=== PATIENT | female | born 1975 | race Caucasian/White ===

== ENCOUNTER 2023-07-16 11:33 | Outpatient (OUT) | payer OTHER, SELFPAY ==
--- NOTE | 2023-07-16 11:43 | MM_ITS ---
Patient Name: THADDEUS CRONIN MR#: [id number] : 1975 Exam Date: 07/16/2023 Ordering Doctor: DR Deepak Alaniz . CORRECTION Corrected on: 07/16/2023; RADIOLOGY REPORT PROCEDURE: MM DIAGNOSTIC MAMMO BI US BREAST LEFT COMPARISON: US BREAST LT LIMITED, 07/16/2023. MM TOMOSYNTHESIS SCREENING BI, 05/16/2022. MM TOMOSYNTHESIS SCREENING BI, 04/17/2023. INDICATIONS: mass of left breast N63.20 Calculator Name NCI Breast Cancer Risk Assessment Tool 5 Year Breast Cancer Risk 1.70% Lifetime Breast Cancer Risk 12.80% Personal Breast Cancer No Personal Ovarian Cancer No Treatments None Family Cancers Grandmother-maternal with breast cancer at age 52. LOCATION: [facility] BREAST COMPOSITION: Extremely dense, which lowers the sensitivity of mammography. FINDINGS: DIAGNOSTIC CATEGORY 2--BENIGN FINDING. NO CHANGE FROM COMPARISON. Nodular dense parenchymal pattern limiting diagnostic sensitivity.Scattered benign-appearing calcifications are present. Scattered benign-appearing lymph nodes are present. RIGHT BREAST: No significant suspicious finding. LEFT BREAST: Stable 3.7 x 3.2 cm round lesion upper-outer quadrant, mid breast with an adjacent micro clip marker. Ultrasound demonstrates an area of anechoic echogenicity with increased acoustic through transmission measuring 3.4 x 3.0 x 3.7 cm corresponding both in size and location to the mammographic findings and consistent with a simple cyst. If this lesion causes the patient discomfort, fine needle aspiration could be performed RECOMMENDATIONS: ROUTINE MAMMOGRAM AND CLINICAL EVALUATION IN 12 MONTHS. PLEASE NOTE: A NORMAL MAMMOGRAM DOES NOT EXCLUDE THE POSSIBILITY OF BREAST CANCER. A CLINICALLY SUSPICIOUS PALPABLE LUMP SHOULD BE BIOPSIED. Dictated by: Peter Mackay MD on 07/16/2023 at 12:40 Approved by: Peter Mackay MD on 07/16/2023 at 12:45 Dictated by: Peter Mackay MD on 07/16/2023 at 12:47 Approved by: Peter Mackay MD on 07/16/2023 at 12:47
--- NOTE | 2023-07-16 11:55 | US_ITS ---
Patient Name: THADDEUS CRONIN MR#: [id number] : 1975 Exam Date: 07/16/2023 Ordering Doctor: DR JOSE MAZARIEGOS . RADIOLOGY REPORT PROCEDURE: US BREAST LT LIMITED COMPARISON: MM DIAGNOSTIC MAMMO BI, 07/16/2023, MM TOMOSYNTHESIS SCREENING BI, 05/16/2022, MM TOMOSYNTHESIS SCREENING BI, 04/17/2023 INDICATIONS: mass of left breast TECHNIQUE: Breast ultrasound was performed, with evaluation focusing only on specific areas of concern. Calculator Name NCI Breast Cancer Risk Assessment Tool 5 Year Breast Cancer Risk 1.70% Lifetime Breast Cancer Risk 12.80% Personal Breast Cancer No Personal Ovarian Cancer No Treatments None Family Cancers Grandmother-maternal with breast cancer at age 52. LOCATION: [facility] BREAST COMPOSITION: Extremely dense, which lowers the sensitivity of mammography. FINDINGS: DIAGNOSTIC CATEGORY 2-BENIGN FINDING. NO CHANGE FROM COMPARISON Nodular dense parenchymal pattern limiting diagnostic sensitivity. Scattered benign-appearing calcifications are present. Scattered benign-appearing lymph nodes are present. RIGHT BREAST: No significant suspicious finding. LEFT BREAST: Stable 3.7 x 3.2 cm round lesion upper-outer quadrant, mid breast with an adjacent micro clip marker. Ultrasound demonstrates an area of anechoic echogenicity with increased acoustic through transmission measures 3.4 x 3.0 x 3.7 cm corresponding both in size and location to the mammographic findings and consistent with a simple cyst. If the lesion causes the patient discomfort, fine needle aspiration could be performed. RECOMMENDATIONS: ROUTINE MAMMOGRAM AND CLINICAL EVALUATION IN 12 MONTHS. PLEASE NOTE: A NORMAL MAMMOGRAM DOES NOT EXCLUDE THE POSSIBILITY OF BREAST CANCER. A CLINCIALLY SUSPICIAOUS PAPABLE LUMP SHOULD BE BIOPSIED. Dictated by: Peter Mackay MD on 07/17/2023 at 12:30 Approved by: Peter Mackay MD on 07/17/2023 at 12:46
== END 2023-07-16 11:34 | disposition home or self-care (01) ==
LOC: MAMMO 11:36
PROVIDERS: Visit Provider Obstetrics & Gynecology
DX: N63.20 Unspecified lump in the left breast, unspecified quadrant (principal); Z80.3 Family history of malignant neoplasm of breast; N60.02 Solitary cyst of left breast
CPT/HCPCS: 76642; 77066

== ENCOUNTER 2023-07-29 10:01 | Day surgery (SDC) | payer OTHER, SELFPAY ==
--- NOTE | 2023-07-29 10:07 | US_ITS ---
[address] [address] Patient Name: THADDEUS CRONIN MRN: [id number] date: 1975 Sex: F Assigned Patient Location: Current Patient Location: Accession/Order Number: [id number] Exam Date: 07/29/2023 10:40 Report Date: 07/29/2023 15:53 At the request of: JOSE MAZARIEGOS Procedure: US breast cyst asp LT EXAMINATION: US breast cyst asp LT HISTORY: cystic lesion COMPARISON: Ultrasound breast left 07/16/2023, diagnostic mammography 07/16/2023 TECHNIQUE: After obtaining informed consent, an ultrasound aspiration was performed in the usual sterile manner. FINDINGS: IMAGING: Ultrasound guidance ASPIRATION NEEDLE: 18-gauge SPECIMEN TYPE, #, LOCATION: 20 cc of thin tannish fluid removed from a thin-walled cyst 3.6 cm in diameter at the 1:00 position of the left breast. MEDICATION: 1% buffered lidocaine for local anesthesia. COMPLICATIONS: None. LABORATORY: Pending OTHER: Negative. US/US breast cyst asp LT IMPRESSION: 1. Ultrasound-guided aspiration of left breast cyst with removal of 20 cc of thin tannish fluid. 2. Pathology results are pending. Electronically authenticated by: MARGOTH PAREDES Date: 07/29/2023 15:53
[2023-07-29 10:15] VITALS: BP 125/77; PULSE 58; O2SAT 99
--- OUTSIDE RECORDS SUMMARY | 2023-07-29 10:15 | XMS_ITS | CCD ---
Author Name Unknown Address [address] [facility] [address] [place] [id number] Organization [facility] Care Team Providers Care Battery Assembler Plastic Name Role Phone KEVIN VELÁZQUEZ Attending Unavailable KEVIN VELÁZQUEZ Referring Unavailable KEVIN VELÁZQUEZ Referring Unavailable ANNA GREEN Attending Unavailable KEVIN VELÁZQUEZ Referring Unavailable ELICEOJohn Attending Unavailable ANNA GREEN Referring Unavailable ANNA GREEN Attending Unavailable SELF, SELF Referring Unavailable SUKUMAR BARNARD Attending Unavailable KEVIN VELÁZQUEZ Attending Unavailable GARETH PINZON Referring Unavailable Doreen GARSIA Primary Care Physician GARETH PINZON Primary Care Physician [phone] Guillermo Mueller Attending Unavailable Guillermo Mueller Attending Unavailable Oneida Bahena Referring Unavailable Josef, Oneida J Referring Unavailable JosefOneida Attending Unavailable Smithesa J Admitting Unavailable Jalen Matthews Admitting Unavailable ByronJalen dawson Referring Unavailable ByronJalen dawson Attending Unavailable ByronJalen dawson Referring Unavailable ByronJalen dawson Attending Unavailable Jalen Matthews Admitting Unavailable ByronJalen dawson Admitting Unavailable ByronJalen dawson Attending Unavailable JOSE ALANIZ Attending Unavailable Gareth Pinzon Primary Care Provider Allergies Allergy Classification Reported Allergen(s) Allergy Type Date of Onset Reaction(s) Facility (5 sources) seasonal allergies 1 Allergy to substance [facility] Comment on above: hayfever (1 source) Seasonal allergy; Translations: [seasonal allergies] Propensity to adverse reactions (disorder) [facility] Repository (1 source) No Known Medication Allergies; Translations: [No Known Medication Allergies] Propensity to adverse reactions (disorder) [facility] Repository NEGATED: Highlighted row has been ruled out! (1 source) Drug allergy [facility] Medications Current Medications Medication Drug Class(es) Dates Sig (Normalized) Sig (Original) Acetaminophen / oxyCODONE (4 sources) Opioid Agonist Start: 03-22-2016 Percocet 325 mg-5 mg Tab 2 tab(s), Oral, q4hr for pain, 20 tab(s), Refill(s) 0, [facility] Start Date: 03/22/16 Status: Ordered azithromycin 250 mg oral tablet (4 sources) Macrolide Antimicrobial Start: 07-18-2016 azithromycin 250 mg Tab 250 mg, Oral, As Directed, # 6 tab(s), Refills(s) 0, [facility] Start Date: 07/18/16 Status: Ordered Codeine Phosphate-Promethazin e HCl 10mg-6.25mg Syrup (4 sources) Start: 07-18-2016 take 5 mL by mouth every four hours Codeine Phosphate-Prometh azine HCl 10mg-6.25mg Syrup 5 mL, Oral, q4hr, 240 mL, Refill(s) 0 Start Date: 07/18/16 Status: Ordered diphenhydrAMINE hydrochloride 50 mg oral tablet (4 sources) Histamine-1 Receptor Antagonist Start: 02-03-2015 take 50 mg by mouth once daily as needed Benadryl 50 mg, Oral, Daily, PRN Allergy symptoms, Refills(s) 0 Start Date: 02/03/15 Status: Ordered loratadine 10 mg oral tablet (4 sources) Start: 03-14-2016 Claritin 10 mg Tab 10 mg = 1 tab(s), Oral, PRN Allergy symptoms, Refills(s) 0, Allergy symptoms Start Date: 03/14/16 Status: Ordered Completed/Discontinued Medications Medication Drug Class(es) Dates Sig (Normalized) Sig (Original) levETIRAcetam 500 mg oral tablet (2 sources) End: 07-15-2023 levETIRAcetam (Keppra) 500 MG tablet every 12 (twelve) hours 0 07/15/2023 Discontinued Problems Active Problems Problem Classification Problem Date Documented Da te Episodic/Chronic Heart valve disorders (5 sources) Irregular heart beat 01-20-2015 Episodic Comment on above: only occasional Menstrual disorders (15 sources) Menorrhagia; Translations: [Secondary dysmenorrhea] 01-20-2015 Chronic Nonmalignant breast conditions (3 sources) Pain of breast; Translations: [Mastodynia] Onset: 04-25-2023 Episodic Other nutritional; endocrine; and metabolic disorders (1 source) Obese class I; Translations: [Body mass index (BMI) 31.0-31.9, adult] Onset: 04-25-2023 Chronic Other nutritional; endocrine; and metabolic disorders (1 source) Body mass index 30+ - obesity 04-25-2023 Chronic Other upper respiratory disease (5 sources) Seasonal allergic rhinitis 02-03-2015 Chronic Unclassified (1 source) Pain of left breast 04-25-2023 Past or Other Problems Problem Classification Problem Date Documented Da te Episodic/Chronic Unclassified (20 sources) Onset: 09-02-1994 Resolved: 05-27-2012 12-15-2014 Results Test Name Value Interpretation Reference Range Facility General Surgery Office/Clini c Noteon 05-02-2023 General Surgery Office/Clinic Note Chief Complaint 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 female here for left breast lump Oneida Bahena referring Diagnostic mammogram and US done 04/17/2023 She states she's had the lump for a year She states she has some itching with rash that comes and goes She as intermittent stabbing pain She denies nipple discharge Family history of breast cancer- father's mother History of Present Illness Thaddeus Cronin is a 47-year-old female who was referred to us by Selene Bahena CNP, for evaluation of left breast pain and 3 cm cyst. This has been present on imaging as far back as 2017. Most recent imaging was performed on 04/17/2023, which showed the cyst in the 2 o'clock position had decreased to 3.3 cm from the previous 4.1 cm. The patient also reports occasional stabbing left breast pain. She does smoke. She does drink a large amount of coffee. She says that it is difficult finding a bra that fits her well. The patient only has a grandmother who had breast cancer. The patient herself is status post hysterectomy. Review of Systems PHQ Score Initial Depression Screen Score: 1 SCORE Constitutional: No fever, no sweats, no weight loss. Eyes: No glasses, no blurred vision, no visual loss. ENMT: No dentures, no hoarseness, no swallowing difficulties, no hearing loss, no ear infection (s), no nose bleeds. Cardiovascular: Normal blood pressure, no chest pain, regular heartbeat, no heart murmur. Respiratory: No shortness of breath, no cough, no wheezing, no asthma. Gastrointestinal: No nausea, no vomiting, no diarrhea, no constipation, no change in bowel habits, no abdominal pain, no hepatitis. Genitourinary: No kidney stones, no urine infection, no difficulty passing urine. Musculoskeletal: No pain, no weakness. Skin: No changing moles, no rash, no skin lumps. Neurologic: No seizures, no epilepsy, no headache. Psychiatric: No emotional, no psychiatric problem. Endocrine: No thyroid, no diabetes. Heme/Lymph: No bleeding problems, no anemia, no blood clots, no transfusions. Allergy/Immunologic: No swollen lymph nodes/glands, no IV drug abuse. Other: Additional ROS info: Except as noted in the above Review of Systems and in the History of Present Illness, all other systems have been reviewed and are negative or noncontributory. Physical Exam Vitals & Measurements HR: 66(Peripheral) BP: 146/91 HT: 62 in HT: 157 cm WT: 78 kg WT: 171.6 lb BMI: 31.64 General: No acute distress Eyes: normal conjunctiva, sclera clear, no scleral icterus, EOM intact, PERRLA. Neck: trachea midline Respiratory: Respirations non labored. Cardiovascular: regular rate and rhythm, Gastrointestinal: soft, non distended, no tenderness, no masses, no palpable hernias, diastasis recti no, no hepatosplenomegaly. Musculoskeletal: normal gait, digits and nails without infection, nodes, cyanosis, clubbing. Skin: no rashes, no lesions, no ulcers, no subcutaneous nodules, induration. Psychiatric/Neuro: oriented to time, place, person, judgement normal, affect appropriate for age, insight intact, no focal deficits. Lymphatic: No cervical lymphadenopathy Tests: labs reviewed, x-rays reviewed Breast: There is roughly 3 cm mobile 2 o'clock left breast mass. The remainder of left breast exam is normal. There is no skin thickening, nipple retraction, or peau d'orange. There is a normal nipple areolar complex. There is no left axillary adenopathy. The right breast exam is normal. The right axillary exam is normal. Assessment/Plan The patient is a 47-year-old female with occasional left breast masedonia and cyst. 1. Breast pain, left (N64.4: Mastodynia) The patient may return to routine breast cancer screening regarding the mastodynia that is the breast pain. She is to find a well-fitting bra if possible and to reduce caffeine and smoking intake. She will follow up with us as needed. 2. BMI 31.0-31.9,adult (Z68.31: Body mass index [BMI] 31.0-31.9, adult) Total time spent preparing the chart, conducting of the encounter with the patient and family, and time spent documenting, reviewing, and ordering tests was 30 minutes. Portions of this record may have been created with voice recognition artificial intelligence software, specifically [employer], [employer] and or [employer]. Substitutions may have occurred voice recognition and artificial intelligence software. Documentation services were performed after patient or guardian consented to allow [employer] to record this visit. RICCI operation specialist and provider reviewed before signing. RICCI: Pablo Cunningham Follow-up No qualifying data available Problem List/Past Medical History Ongoing BMI 31.0-31.9,adult Breast pain, left Historical Procedure/Surgical History diagnostic hysteroscopy with endometrial ablation (02/03/2015), section, Endometrial ablation, Tubal ligation. Medic (more content not included)... Normal [facility] Comment on above: Result Comment: Elec tronically Signed By: Guillermo Mueller MD\.br\Date and Time Signed: 05/02/23 11:14 EST\.br\Electronically Co-Signed By: Juliann Steen\.br\Date and Time Co-Signed: 04/25/23 11:38 EST Consent for Treatmenton Consent for Treatment [id number] 31 [id number] #1.00TIFF Normal [facility] MA Mamm Diag w/CAD if perf a nd 3D Bilon 04-17-2023 MA Mamm Diag w/CAD if perf and 3D Jeromy Exam Date/Time: 04/17/2023 12:55 EST Reason for Exam: N64.9 Report IMPRESSION: BIRADS 2 BENIGN FINDINGS, NORMAL INTERVAL FOLLOW-UP.12 MONTH RECALL. CLINICAL HISTORY: N64.9. COMPARISON: 05/16/2022 and 05/23/2022. COMMENT: Routine views and tomosynthesis views of both breasts were obtained. The breasts are heterogeneously dense, which may obscure small masses. A marker was placed on the skin surface of the upper outer left breast to indicate where the patient feels a lump. In the upper outer left breast, at mid depth, there is a 4 cm diameter nodule, that was present on prior study. Superior to this, there is a small metallic biopsy clip. There is asymmetry in the density of the right breast, stable in appearance. No neoplastic calcifications are noted in either breast. The examination was reviewed with Computer Aided Detection. An ultrasound was obtained at all clock face positions and in the central/ retroareolar region of the left breast. There is a large cyst at 2:00, that measures approximately 3.3 x 2.6 x 3.3 cm, compared to 4.1 x 1.8 x 4.1 cm on the prior ultrasound exam. There are additional smaller left breast cysts. At 2:00 there are several small cysts, the largest measures 0.7 cm. At 3:00, there are a few small cysts, the largest measures 0.5 cm. At 4:00, there is a 0.3 cm cyst. At 6:00, there is a cyst cluster with greatest diameter of 0.5 cm. At 8:00, there is a 0.3 cm cyst. At 9:00, there are two contiguous cysts, each measures 0.5 cm. At 10:00, there are a few cysts, the largest measures 0.9 cm. The ultrasound the left breast is otherwise unremarkable. No solid breast mass nor suspicious lesion is noted. Breast Density: Yes Mammography is very important to your health. The current [employer] and National Comprehensive Cancer Network guidelines recommends annual mammography beginning at age 40. This facility utilizes a reminder system to ensure all patients receive reminder notifications at the appropriate time based on the recommendations of this exam. Board Certified Radiologists. Accredited by the ACR and FDA. Report Ordering Provider: Oneida Bahena FINAL REPORT Dictated: 04/17/2023 2:22 pm Alfa Guevara M.D. Signed (Electronic Signature): 04/17/2023 2:22 pm Signed by: Alfa Guevara M.D. Transcribed by: MIKAYLA Technologist: KELSEY Assessment: BI-RADS Category 2-Benign finding Recommendation: Normal interval follow-up Normal [facility] US Breast Unilateral Lt Comp leteon 04-17-2023 US Breast Unilateral Lt Complete Exam Date/Time: 04/17/2023 13:31 EST Reason for Exam: N64.9 Report PLEASE REFER TO THE MAMMOGRAM REPORT. Ordering Provider: Oneida Bahena FINAL REPORT Dictated: 04/17/2023 2:22 pm Alfa Guevara M.D. Signed (Electronic Signature): 04/17/2023 2:22 pm Signed by: Alfa Guevara M.D. Transcribed by: MIKAYLA Technologist: ISSA Normal [facility] Physician Orderon 04-08-2023 Physician Order [id number]# 1.00TIFF [facility] Physician Referralon 023 Physician Referral [id number] #1.00TIFF [facility] Provider Letteron 04-08-2023 Provider Letter April 08, 2023 THADDEUS CRONIN [address] [place] [address] : 1975 Dear Ms. Cronin, We have been trying to reach you with no success regarding a referral we received from Oneida Bahena. It is important that you return our call upon receiving this letter so that we can set up a consultation for you. Also, at the time of your call, please provide us with your current demographic and insurance information. Thank you for your prompt attention to this matter. Sincerely, [facility] General Surgery [phone] [facility] In office Testingon 08-22-19 23 In office Testing [id number] #1.00CD:127 Normal [facility] Coding Summary.on 05-28-2022 Coding Summary. [id number] Gh0bWw+PGhlYWQ+PE1FV CPmT99jbPQyyM1FL4kWV R3JJXACGHNYDJ6PKW5wo XM8OTcxG9VfdeBf IhbbjGWyHC45OJl7JDV7 mCbcGUgfaH1pvJDtG3l9 VdLvSY19kT11JDoyDQPm BaD9BxOlmlpkvSYb M7tjSrMrfPArKzb+PHRh YmxlIHdpZHRoPScxMDAl OuNiwLzrNK4sNb9bBRXr LWNvbGxhcHNlOiBj k1bsEGQvGHyqUG9omRqn U0WozCG5IARsw5u9Ic11 dHI+LHWuXFQ3lJnfMQpu p119AfTpi4vsNUU3 wDFdCHywNGM8M76iu2X5 ZSBgOYOpZII4lRT9vR6h qJgdafvaX3UjpUBnWqM6 VKJ0eJGbkY9kgRop kknljH3aWdq+U56QMQ6R UFVIZF9SHrl9L5UjNsqd dHI+SX45XUMeTF49kRMz cTFlg2gmyYe0MsVe IHMmYZR2oOuzJTwsw9Pe HBJfT02oaLWgh5C9YRCv cPuywYQkCwBubKV2wA3v QOibcettv8cufmjy Zwxcl7imjm66pN79E04h CVxaUHDhPOL0VFWfQTIn iXaaoq3jfD5vFl5+IDxj b6buq1kqtYu9HrCr LDWhutWhqVfmSCL3z6Fj If91W1SshEeee4FmPfd0 lv12fVUpd6K7oMA0BKsu JQJavD8sBXveQyE7 CDFnDfRkwW77hLCfWLdv Cm6auAfvhVcmDB5nKHSq arsfDTZmnS9sJRYneHJd wOmuSL1hNPPwxbqx k001RvEbBWH3WGTkyCQn N4WpzD4yQkCaFNJwVJMx C4JbuJBwSUfgB362XGwu TiT7XNIyrtKfB5Ct ICKxmJcpEvZ2h5W3Ye5Y k6WucgmcNHM3OVqwLXQp ZiGbVnKoIeM8U9HvJiv6 MVIrwOtfUU6lB0Ce DTSejpjkejzoyXX7PEHf WCXotA64dXCeDIxeZi3z p1O4w262HGWcAVQbjK50 Cd4inQvxZONjmFLW jA2dtyykt2drbhlvOgZd RAQzYVd8QGy3QVGgcYcm HgTbIKE5CnC1HOT2pIPo cD6xkNxulfshkV7i Oyc+T16qeP8hPCF2YMX3 pzxwXPNjkeYlPF88IA47 Y7CmWcfzwIOsrPJ+PGRp usRcnPtbID6rPpTn b3pjb0YfMTncN8HkDJZq PVtjDjh1MJPpQTX8yOZ7 sD8mVCGkNLqhs3C9lDS7 V0MjweHxue0dh5ba RVDaOLugG49ffOUhh3O2 JRUdmEL8NXPrbYpaLuBl bQ97Vzc+IAKekSxmj5Om Lqjup1skx8ybjQs8 IjMwJSIgdmFsaWduPSJ0 u8GuZd28B11uPCljAVMr JSHmSLFuLKDomGbhpd6z dF3xQh5+PGNvbCB3 fPN4rA4pCAAmHyT1QIna O156DhWquIUiFwywp3zs n5jyhLp8CgKzGRXwtxEd rZbwBHB1x6WrQd13 P01jXVdrENHeUUQcTIWc ANOnlPtidi9ftF4gIm1+ YO8kc5zqrv85cT08kUI+ NVSrFDS7wImpBIqb UOVfyS7bMXbvVvF4QNYe NtMtwX22yIJdEIucWl1n vCwseYchGN4kAJYnlvew w694YrOyz2bhFGAw aEXrRGxtLLP2H06xp9Q4 LGNoNTVzVRK2vXT8oZ1t bGlnbjogbGVmdDsgdmVy yLoxREooCXlmP306 IHRvcDsnPlBhdGllbnQg YmWfUNs0L4NrZmb1LOVs rHhzJT7cpWKcEElcFc4a oSkzaYgdRB4qBJQw rsxbc784MrRud0jdYRKm fIKzFHfpUZX0X89ze2A0 PZViEEXhRQM5wAO5pI3z bGlnbjogbGVmdDsg ajJmpMejZPqdFDqvT173 IHRvcDsnPkJpcnRoIERh eUS9PI88NH05oEQrl2V4 cMY4X4JoPDGygeak wkxygPF9DDQpPGIyuD52 Nw7duAnbQn2vQOCcAMO7 VOAqdTOmB8XwvG8wEqXq OMZaZCJwE9XtcCMb YFmiJ026ETppIxP7UWGl jqIqM6GoAAFdvXejJuS6 o8X6Nx5GV0D8CK83WW79 hJAgg1J2dLL4S7Ut NWYfsgeizylpgSR6JEHt MFVedW02Hz5gsEppGn6n XYLyBKU0CDGzwQWeE7Yw kY5vPbQxPPFlQTKg N1ZbvRDgQThsK001ZQrs ViJ7IHYctgXcV4KwJLQr wRqzEfX5b8M7Hp9EINa5 HE99FP17yRSkj0O1 wOI5W2XxOFExxodriftm fPT3NRFzMRVnyF86Rt0n rOhrZg1yBFRnOJA0SWFr lIIrN0MouZ1zVeGr BNAmNLDpU6NufDXlQKmb M340FCzfQcB3REEichXa N2HtJNTqiOgbXyG9t4V3 Pm0OSQBmIT79UDB6 oYD2XM19IC82A7VsSrwi dGFibGU+PHRhYmxlIHdp ZHRoPScxMDAlJyBzdHls MO5xIw6nTNTeCJTr xSuxnZAjGgOim1tmOFSm HCmtLF6rsQigC2BftDO3 YGZtz6w2Zg42T97dR3Rw dXA+QAKraQI3zZX5 hC3hAzTpCeH4GBzuB915 IjTsvINyYxdeq0jpg4xa hKp1JdX9CKXyqqBwlPxn CMW8x9PyCb35K12h IHdpZHRoPSIxNSUiIHZh rUzoly0rmU4rOr6+PGNv hAO2vAW0zT2qAfXwNdW8 ELlzA174YhYelYLs Ayibo9mpl7afaDb5WjCm TYMdktRetFjpSUS0n4Wc Lu59U2VwaBgyj3DgPhd8 dw13qOGru9E2xLA4 M3GoOUOkpdfjtFMzpQzc OT3hLKGvagdfBMNlrW1v FSQkA2l7WmGeLtG4NSvn B1TfjjQ4RZLflCOc CFhaLHZ9B55xb4V8ILYx TFRcZLN7zNK8iS2nlWvg bjogbGVmdDsgdmVydGlj JTvgVKkwL164TBUd dTdiOLUysU5iXWJvlWUx sTykIH8cVAWeunwoItRW CysRAYQaSCJBAAKVIN7R JXS0J5JiLmv1IQZf wCoxTI9fbOZkLLcrQf5f vBhakMfpVG4lRNSlvswe JRMtaX2iJKMlpPAfwKbr QR6fCENbrsvsn529 PcRlJXM8RXEqzBMcJ0Ev gG0yEmCwXTFpPCOpZ2Lq nGRkDZqlR568ELbeJhM4 JKJfutGgQ6ZmJDWl iGniFuZ7o5I0Pa4jKj8p VG9eYGr4XB09ZN31fPGr b4L0iDF5P7SwNPOhuepc crnptUM4JZObBWYo aI09wXAiCDarRg3gv1X7 s809BVNiETWzoK98Oo5a vIntVYFnfLMIzA5tegqq o6kclflaKsHuWFZu UOs8SRd1XCRpvBbkIxVw ZZC7KvY8YHO1bWQiyA7f qMwaudzsiF6fTzu+NDYg LOLkpkC8B4UlYqg5 QFImqFekFY5imKHiRXzf Xg9kqZtxwKaoVC6iFHJv qluuMNKhhN7rXKYruBBy jEsbKV4bEBCyqxhq n891SvKkMPP4XXJlxOOv K8FggR0kWnRkWUVnGEXh F2YyzMQhWEbmV703RMot BoI9KCFixyNjX9Qi MSUokGuoPmE5z2E8Hr8A DM4zoIB8E5TrJfv9FWAo xRhpSH6mbJBhWWjeRa8q vXmbnShnPZ6zWLBk hyowIWJqrQ1dYPScdEEw sAgbYR9xWDBjmixqs034 SdUeFRZ7NPKfcZPcF9Cm pL3dQqGxOOGgWLCe P2SorSPzDHxhA894FPyp HgR1EDCxxlQsM6ZxMHCs bNijYbJ8h8W8Ex1IaTEa SNDsHH27IR09CS23 V0IxGjpzvWNhnTR+PHRh YmxlIHdpZHRoPScxMDAl UyWccLmeMH6lVh3gHSBt LWNvbGxhcHNlOiBj r8ssHFJwMOpoTL3nrTau X5DtvFA2UWRze4k1Na72 M17nT6ElmOK+PGNvbCB3 wPK9iF2aLsOuYoJ3 DTleH224ZsZvlTQgBftu t3lyk1wrlSq0IvEeDHGy pqQcyOivWMM0z3IoKg74 L34eJLreENYcZRYt JPCdBVGbtQsdgo8nrA0o Ii8+HYZmfWS5vHX5sR7o KtHoUqD0YWpzB769QoDf fRRwQbsqJ61jO4Sh dXA+MLApUia1VHDvjEqu QY8ncJVvNUaoKz4xUEY7 WbXxLjTpGGufF3MjVSXk hqkjswfavYQ4PLKm DMOeiP16El6wmGdgYh1m GBByLLG0VWGhcYGrK6Zf gJ8nHkTmHDLmXWEtP6Ig eLLyELcjQ552AGnn AtE8QMAbxiMwR2BeWTYz pSgeCvG7j8V1Tq6GmPil aUZcKO4yVwWnAOy8D7Kd Roo3SJHvzLwbFL6p nLGgSPnkCm3ozUhgnZkt QL1nCKLtyekhi180FkLr f6gpLAYpgCOgVXakGPA6 P91ig0J5UZQkEGUd VFQ5oIP2fG1zkWgisemi bGVmdDsgdmVydGljYWwt HZbjP965LBYwjTwzPwTN Koc7D1FaSvz8BLNx kAcpYC6iwHJrKKqmEf2q wCozzBniOY4pRPAdqnuo o867HhRyr1riOMDbeZZn LVapQUH2T99yr4W7 HJWbQNPcAFI7fWP0zX0b bGlnbjogbGVmdDsgdmVy pLjnNXjgAZleR717EELo hSboEz3TDcq9I1Zv Hwh4QNZpjExeCD1elNXa GFztPt3voTcqpLbhWC7g SALxybhln687PzXgf0qm IDEwcHQgVGltZXM7 E33uq0B5ZPEfJQAcEVV3 vBT6yS0tpVgyrbpjqGTm dDsgdmVydGljYWwtYWxp H650IZOxmOabFmAw eWVyOjwvdGQ+UJ20ye01 Q2QnPxvhEve6OYDrNOW3 fIO6hG7pXGHgZPdtb1T6 hYO8M0YhezQhsd8x b2xs (more content not included)... Normal [facility] Coding Summary.on 05-26-2022 Coding Summary. [id number] Gh0bWw+PGhlYWQ+PE1FV NZmC14pjXUlqM2ZG5vRW V6YRPLXJLRQRL1KIW6ej EW7SYzoW3XvfwWo HphxvJPfHR43TCb7JOT8 tWmvPXovbQ8gfKKzF2e3 JlLrOO74iL71ZQxnUEDi FoX5MjHsdaicrNZa E4zqIlXkkBInPsx+PHRh YmxlIHdpZHRoPScxMDAl JeQswFgfYK4iAs1uYOEh LWNvbGxhcHNlOiBj q4yuFAQsBWmwOW2kvIyz H2UafZK3RNDer8b8Fu18 dHI+BZCqWNC9bUhqZVnf z875KfDai6thXBB8 uDOlDUrvGPS1K34ln3M4 VZKrRSKcTXV4fAM5uR3n cMbjqpcxC8TgaRAxQtQ9 OVO3fDGxkO4ycAfr fpgtlL9fFlr+P89EEY0U DZHPTP1DXun1G6YsMgky dHI+CE80MNDzWW78qGDe xWFur3fcpXa2RcRm TVYfJHK2gIbqMPddl2Qw KNBqJ13obPNmy6W5ZJHa aJylrUToVrOstQU5hY2r HZjryzbar6idlxqf Azqwh4ntmg72pR98G53j CKpsTPDoEXA4IJJzKFKe yBbvqc7iyE1cXg1+IDxj y2czz4gskGv4RrQg OTRpmsJpcLkzGQT2r1Gj Kq03N1AhzBthb4OoNqn8 ka77cEVvy7V5cVS2WDbd SSYncT6jECcdMgR7 RYMuVlAjqZ97mNUnJXnw Tv8vpWjngMbaDW7dQQRh jtvbEEIjrI7fYRFbqIYy jYtgWI9qFWVwxrgc n774CfKlXIZ1GULxnJMf K7MhxB6jIcKhBGXrBUVn Z1YauROdNOwbV438ZFyz SoN1ONLnaiSkD6Pb IFCdfLmzRiZ3c4O2Tl8R w0AvmwydFWS3RJfnFMDc JtU5AsZqRyC1Q7KbYym7 YVBfxZooEB8tZ9Pl ZLNfpsvrraegsYT3KULn EGHaaW32bNLoYSviLp9k g6P3n756LGKgXCSwkN67 Cm8qfIuyGVVnpSXH qR7nfqgiw8qkswxaIzId GHWdKNz6GDi6SMXubPft WjGqIBV5EpG2MBL8iNAd lQ9xyQcarkbpvQ6g Oyc+F89ncM6fJTW6WPF0 pqbzWWEdpbJaAO62DJ90 H0AzHwfqbJKtmEN+PGRp tmFriIxlLY7cPdFb y4apg2PrVYlsW5SoALTz XIlfLnx5CUViEQA8lGH2 bI3yZPUpJKsfb3N5wRK8 U3VschDtrg6du0cj BSYeXYltU32xwGKti6V2 MMTxvLH7QILfaAneMdJs xS96Qwv+TBOiqBbcm6Qi Msumi6xxk3rhjNd1 IjMwJSIgdmFsaWduPSJ0 j5MfAm90H21eGPneSWFj ZRYcHAWoTKIetCsasw7r qF7jSb3+PGNvbCB3 eXD7uX3pMELsYjA2IVqy Z499YyQsxHCvAewjx1vi d7nodLq2UvGnIHIrmrOn aHzkIIS5d6DtMq54 Q51dRYpeMTRzMHFxKYOt VMRtdAhswo7znO6qXc0+ NM7yw9sioh67wW08bCQ+ EJHuBOU0cYruEQmb DPIyjF9dXSsqIlN8GEIa JeCvwV01yOItOTezHu3b eMkmzPxgNS1hFZWfvzwg a421FqJmf1sxACXm sXCpRYtkNPH7R69id3S9 RSGzLLAcQTF4nQI5iE7y bGlnbjogbGVmdDsgdmVy rFkeZRkpSSelN208 IHRvcDsnPlBhdGllbnQg UxBoIJf3J2SxCqo7ISTj cJncSW2yyWRhJXtuFj9r aWbdlKjzVF4xBJVi nznkv172HeSgy1bjKVSq mPCmYNlzPNW5U27nr8F7 AJVcUAMhLCN9vAA5nU1q bGlnbjogbGVmdDsg yjWrwJpvSDtvTBqvX559 IHRvcDsnPkJpcnRoIERh sIR1LA61LW50iRClr9H6 aUK1H5FzUIMqwlwv savvqKH0YQWxEXZbeJ58 Cq6plYkdMw4bZHHgJIW4 ABUgjLNwP8FleT2bMkKt BMGcRLWwE0OlnWAe QEikY097TGimWdP4EWJx baRiB1WwCIOefUtxUcT9 n6M8Ln3GY1F6DW97AY96 vFGmu0E8nDF3P3Fe BSLlbqkqyqzmzPQ0CKXj QAQcmL28Fy9owRmjDo1g UBOqIJN6NKGlkWFqV0Ea vX3rOlLqBNUzMLZe R9ZmbPSkSDgjL687YOzo OtJ2EPMavlAuU0XwCZQn qFtmEkZ1l4T1Do0BCVp1 EK61FZ06gVNyj6P6 zKQ0W1NcIYRcmdapednz aET5UJOrXLJcqN82Yt5p fWrwDv4oWECgNCO2CHAh pLMxB3QxfF0iYmDb TXWlSENxD8ZnyBSfTRcj G637ORhpOvP3VCOqzoLa A6SsTYFnpWwsMtB8h7B2 Nu9VNAXeFT01CPA0 oZA9LW20JZ73R1CbOzjt dGFibGU+PHRhYmxlIHdp ZHRoPScxMDAlJyBzdHls VL2gHe1sNIZxIWAe uZkryDTbEzNap6agDTGw WYybOT4aqPmsX5JmkJE3 KBJua6c7Eh22D52wF5Ac dXA+XAPosSF1qSD7 kG3eZwYfTmK2ZWijT414 BvIbyQVbLtjhc0xwe9zw qHo3YzB2LSLzvuHsdVnh KJN1j4EkXg60F74l IHdpZHRoPSIxNSUiIHZh aVdwps4myG1bCj7+PGNv uOA3mOT5pG1lBnRuMkT8 WAhhB581PrOzgXQl Dsmog6ssh2qgmSs1MjJh MKCcaaTcdUviGMC2f9Pd Qo17P8VeqQoxm6QoHoz8 bj17xXThx8N2fLE9 C8BhLAGswivhuCLtmRph ZI3oDZLuwcsbTRRlrE8c IZSzI0q5KjPzVyQ4AGmv M0IujeE4SQHcqBAa ZFluAIE0U39nr6C4XJVl JLLgZKN4nIJ3eA3rmVwq bjogbGVmdDsgdmVydGlj ROyfQXygE361ZGCs cXvzLRTbnK1uUQRytWTi aMcwHD0vVIDyxrivEmFX WfcDWUTuVKBIDOTTAT0A IVK6X8AzNmc8TFZq hOxaOB1svUCvJYdyWw4a iLrriSzxTM0xVUJjylgs KCKatK2vCWKleYUlhEpv BU2qHXKqpfmxw220 QhOtBZF0DCKabRGxR0Cg oA0vOrUgAMXqCRVjN8Ze bHDvYSdhB207ZPgfMhV1 KGUsgoKsL9NsQIMa nSiqFqV6q5W8Yk4kUk2h GA1uZSn1RD27FZ48pZFu c7C4zIE9X4FsBUUuddvy uzsxaNW1NXXqQMQr rR20bZRzGHyiHz2ea7P1 d381PUCfKPQjpH20Cr8s fGmxNRSdyKIHjV9cnygm v1cwomgnGxMaDFJs OOe0QHv9MAUgmFfwRjFe AMJ4RyF8XSR1uGCdmK9h pBlzscotjZ8jCxt+NDYg EFUfnkB0R9SgHbk5 CMQpoMhgCM7rmMTiNBwo Kn4brWtxjFdkYJ1mWMCl hrqtOQGmrN6aJVOmeBTp pVdrAM1iQRVlrxyl n216AeVjCAZ2KOEkpCXg O6FhnE6hWdTuPAYmJBVg I7CwsMAvFGhoZ249OHky DuE4JKEdvyZhL4Ik HDQocMvnLmH8m6A3Pe5Y WB5ulYZ3V6JjAol8UISm cTbyYB6cgUZlQGimNc6s fAzleFtkWP0wAKQh haahYUDczN8jDRCghGVj yQxhJS8pZBYussrsi290 AcUsUKW2XDLphFEmF9Eh kA3vSgQfHIPsBAQn V5XqdRGfYEjyU418HEbi TfP8EIGpbyFpM3TpVNZj vImtIvA4z9Q6Bf7OqZOs HOIdHT68CG27KY85 Y4UqZpgpmPTmnYE+PHRh YmxlIHdpZHRoPScxMDAl CvQroUfgKL9aVi3fGKBo LWNvbGxhcHNlOiBj z6qpWVDrXRkyKB8peGxb D0BhdNF0MZPlz2u1Id73 W96fZ6AchDU+PGNvbCB3 hJC1aV4nUfTvVrD1 BOfdQ248KuZxgNCkDvip k1cxa4rwmJw9EkDuIZNa vkNlhVneDMQ2l3CfRk47 O88yPNgyVBGwLGEa ZMQbCCDbaHzpkk8xoP7v Ii8+ERTusQT5mIE1zR6o IgDcIgK6EQweD029QwRb zCKmDpnqS81eN2Ks dXA+DITjFad0SVJtwZdg EF6bxHOsDSkwYf7vWFA0 TgQnSlRnWVuwE2KoJXAd nfredyhnpYT5YPRn ZNAnbT64Wh3fzYobRr9j ASUkFNH3JBJkdVUjG4Bi xS9aEsGeIEVjEXYrZ1Ba iOBcUIzdS857KSby CmS3KBMoyhRwX7EdRQCh bMhrZoG4s3J6Pm7NbXde xFRzZZ7eCmSbPPs9O7Bk Mvq5TLQmgKqdZQ5c uXJqLLvkRl6bkKfsnTop QX1wFCRpqfycd019DnXh f0bmSJDbgUDgIQamSRH1 O36xg5E0UVQgKYNc ONB4jMV1cM8bgVewlwpa bGVmdDsgdmVydGljYWwt ZCmsE752RFYapWdtLsOR Rks6L0NfKhc2WMHz rPojOO8psTDnUPtmXl9c kCekwLsdCX8gURYmpbjf t923EcFtp4fgPRIswMSj MKvfXYL6P74us9F1 SGTxERJySAO3oWX6sB7b bGlnbjogbGVmdDsgdmVy pYphYWxdAPcbV286ADMl xDsvLr2IBjm7O9Pt Akb7FUIifMrrHM4qsAQv COjrRb7stBtqmKslES2x TVDwtgvdm294BySnn6br IDEwcHQgVGltZXM7 S06ra2D9GTBcTZRuLBU6 iOY1gH8zfAlkjpirkLMl dDsgdmVydGljYWwtYWxp F484LWBnqCcoUcBi eWVyOjwvdGQ+JD47fc96 H9UtCcsfDad0FORjRLE7 wXO9dQ7bPASzQLlcc6Y2 eOO6M0DiyvFfyg7x b2xs (more content not included)... Normal [facility] Consent for Treatmenton 05-09 Consent for Treatment [id number] #1.00CD:127 Normal [facility] US Breast Unilateral Lt Comp leteon 05-23-2022 US Breast Unilateral Lt Complete Exam Date/Time: 05/23/2022 14:29 EST Reason for Exam: R92.8 Report IMPRESSION: BI-RADS CATEGORY 2: BENIGN. CLINICAL HISTORY: R92.8. COMPARISON: Mammogram on 05/16/2022. COMMENT: An ultrasound was obtained at all clock face positions and in the central/ retroareolar region of the left breast. At 1:00, there is a 0.7 cm cyst. At 2:00, there is a large oblong cyst, wider than tall, that measures approximately 4.1 x 1.8 x 4.1 cm. This is felt to correspond to the rounded nodular asymmetry noted on the mammogram. At 8:00, there are 0.2 cm and 0.3 cm cysts. At 9:00, there is a 0.7 cm cyst. At 10:00, there are several cysts, the largest measures 1 cm. At 11:00, there are few cysts, the largest measures 0.7 cm. The ultrasound examination of the left breast is otherwise unremarkable. No solid breast mass nor suspicious lesion is noted. FINAL REPORT Dictated: 05/23/2022 2:45 pm Alfa Guevara M.D. Signed (Electronic Signature): 05/23/2022 2:45 pm Signed by: Alfa Guevara M.D. Transcribed by: MIKAYLA Technologist: ISSA, Magdiel [facility] Auto Diffon 05-22-2022 Basophils/100 WBC (Bld) 0.9 % Normal 0.0-2.0 [facility] Comment on above: Order Comment: Order Added by Discern Expert. Performed By: #### 2 [id number], [id number], [id number] ####[address] [address] Basophils/Leukocytes Auto (Bld) [Pure # fraction] 0.1 E9/L Normal 0.0-0.2 [facility] Comment on above: Order Comment: Order Added by Discern Expert. Performed By: #### 2 [id number], [id number], [id number] ####[facility] [address] [place] [address] Eosinophils/100 WBC (Bld) 1.7 % Normal 0.0-8.0 [facility] Comment on above: Order Comment: Order Added by Discern Expert. Performed By: #### 2 374225, 4375233, 3787573 ####[facility] [address] [place] [address] Eosinophils/Leukocyte s Auto (Bld) [Pure # fraction] 0.1 E9/L Normal 0.0-0.5 [facility] Comment on above: Order Comment: Order Added by Discern Expert. Performed By: #### 2 344848, 1911842, [id number] ####[facility] [address] [place] [address] Lymphocytes/100 WBC (Bld) 29.7 % Normal 14.0-50.0 [facility] Comment on above: Order Comment: Order Added by Discern Expert. Performed By: #### 2 710185, 7307124, [id number] ####[address] [place] [address] Lymphocytes/Leukocyte s Auto (Bld) [Pure # fraction] 2.4 E9/L Normal 1.0-4.0 [facility] Comment on above: Order Comment: Order Added by Discern Expert. Performed By: #### 2 171318, 4086118, 2406778 ####[address] [address] Monocytes/100 WBC (Bld) 7.7 % Normal 4.0-14.0 [facility] Comment on above: Order Comment: Order Added by Discern Expert. Performed By: #### 2 009305, 6611658, 3129113 ####[address] [address] Monocytes/Leukocytes Auto (Bld) [Pure # fraction] 0.6 E9/L Normal 0.2-1.0 [facility] Comment on above: Order Comment: Order Added by Discern Expert. Performed By: #### 2 644674, 0610430, 7211965 ####[address] [address] Neutrophils/100 WBC (Bld) 60.0 % Normal 36.0-75.0 [facility] Comment on above: Order Comment: Order Added by Discern Expert. Performed By: #### 2 859638, 4542716, 8557289 ####[address] [address] Neutrophils/Leukocyte s Auto (Bld) [Pure # fraction] 4.8 E9/L Normal 2.0-7.5 [facility] Comment on above: Order Comment: Order Added by Discern Expert. Performed By: #### 2 282390, 1741553, 8081259 ####[address] [address] CBC w/ Auto Diffon 2 Erythrocyte distribution width (RBC) [Ratio] 13.2 % Normal 10.9-14.2 [facility] Comment on above: Performed By: #### 2 784481, 7422209, 7408109 ####[address] [address] Hematocrit (Bld) [Volume fraction] 44.5 % Normal 34.0-46.0 [facility] Comment on above: Performed By: #### 2 568279, 3110107, 1498891 ####[address] [address] Hemoglobin (Bld) [Mass/Vol] 14.5 g/dL Normal 12.0-16.0 [facility] Comment on above: Performed By: #### 2 987485, 0887725, 6858664 ####[address] [address] MCH (RBC) [Entitic mass] 29.1 pg Normal 27.0-34.0 [facility] Comment on above: Performed By: #### 2 713977, 9177447, 2054310 ####[address] [address] MCHC (RBC) [Mass/Vol] 32.5 g/dL Normal 31.4-36.0 [facility] Comment on above: Performed By: #### 2 645498, 1892910, 3317384 ####[address] [address] MCV (RBC) [Entitic vol] 89.4 fL Normal 80.0-100.0 [facility] Comment on above: Performed By: #### 2 935456, 4488999, 7379576 ####[address] [address] Platelet mean volume (Bld) [Entitic vol] 9.9 fL Normal 6.4-10.8 [facility] Comment on above: Performed By: #### 2 683689, 9701720, 2276223 ####[address] [address] Platelets (Bld) [#/Vol] 242.0 E9/L Normal 150.0-500.0 [facility] Comment on above: Performed By: #### 2 292647, 0407040, 3964082 ####[facility] [address] [place] [address] RBC (Bld) [#/Vol] 5.0 E12/L Normal 4.3-5.9 [facility] Comment on above: Performed By: #### 2 070876, 4358655, 5418691 ####[facility] [address] [place] [address] WBC corrected for nucl RBC Auto (Bld) [#/Vol] 8.0 E9/L Normal 4.0-11.0 [facility] Comment on above: Performed By: #### 2 840695, 4463939, 1089079 ####[facility] [address] [place] [address] CHEMISTRYOrdered By: SYSTEM SYSTEM on 05-22-2022 Cholesterol [Mass/Vol] 232 mg/dL High 120 - 200 mg/dL [facility] Cholesterol in HDL [Mass/Vol] 52 mg/dL Invalid Interpretation Code [facility] Cholesterol in LDL [Mass/Vol] 152 mg/dL High <=129mg/dL [facility] Cholesterol in VLDL [Mass/Vol] 21 mg/dL Normal 7 - 40 mg/dL [facility] Triglyceride [Mass/Vol] 106 mg/dL Normal <=149mg/dL [facility] Consent for Treatmenton 05-09 Consent for Treatment [id number] #1.00CD:127 Normal [facility] HEMATOLOGYOrdered By: SYSTEM SYSTEM on 05-22-2022 Basophils/100 WBC (Bld) 0.9 % Normal 0.0 - 2.0 % [facility]eAutoSS Basophils/Leukocytes Auto (Bld) [Pure # fraction] 0.1 E9/L Normal 0.0 - 0.2 E9/L [facility]eAutoSS Eosinophils/100 WBC (Bld) 1.7 % Normal 0.0 - 8.0 % [facility]eAutoSS Eosinophils/Leukocyte s Auto (Bld) [Pure # fraction] 0.1 E9/L Normal 0.0 - 0.5 E9/L [facility]eAutoSS Lymphocytes/100 WBC (Bld) 29.7 % Normal 14.0 - 50.0 % [facility] HemeAutoSS Lymphocytes/Leukocyte s Auto (Bld) [Pure # fraction] 2.4 E9/L Normal 1.0 - 4.0 E9/L [facility] HemeAutoSS Monocytes/100 WBC (Bld) 7.7 % Normal 4.0 - 14.0 % [facility] HemeAutoSS Monocytes/Leukocytes Auto (Bld) [Pure # fraction] 0.6 E9/L Normal 0.2 - 1.0 E9/L [facility]eAutoSS Neutrophils/100 WBC (Bld) 60.0 % Normal 36.0 - 75.0 % [facility]eAutoSS Neutrophils/Leukocyte s Auto (Bld) [Pure # fraction] 4.8 E9/L Normal 2.0 - 7.5 E9/L [facility]eAutoSS HEMATOLOGYOrdered By: Lanette Miller on 05-22-2022 Erythrocyte distribution width (RBC) [Ratio] 13.2 % Normal 10.9 - 14.2 % [facility]eAutoSS Hematocrit (Bld) [Volume fraction] 44.5 % Normal 34.0 - 46.0 % [facility]eAuto[facility] Hemoglobin (Bld) [Mass/Vol] 14.5 g/dL Normal 12.0 - 16.0 gm/dL [facility]eAutoSS MCH (RBC) [Entitic mass] 29.1 pg Normal 27.0 - 34.0 pg [facility]eAuto[facility] MCHC (RBC) [Mass/Vol] 32.5 g/dL Normal 31.4 - 36.0 gm/dL [facility]eAutoSS MCV (RBC) [Entitic vol] 89.4 fL Normal 80.0 - 100.0 fL [facility]eAutoSS Platelet mean volume (Bld) [Entitic vol] 9.9 fL Normal 6.4 - 10.8 fL [facility]eAutoSS Platelets (Bld) [#/Vol] 242.0 E9/L Normal 150.0 - 500.0 E9/L [facility] RBC (Bld) [#/Vol] 5.0 E12/L Normal 4.3 - 5.9 E12/L [facility]eAuto[facility] WBC corrected for nucl RBC Auto (Bld) [#/Vol] 8.0 E9/L Normal 4.0 - 11.0 E9/L [facility] HemeAutoSS Lipid Panelon 05-22-2022 Cholesterol [Mass/Vol] 232 mg/dL High 120-200 [facility] Comment on above: Performed By: #### 2 105059, 4180408, 8660005 ####[facility] [address] [place] [address] Cholesterol in HDL [Mass/Vol] 52 mg/dL Invalid Interpretation Code [facility] Comment on above: Result Comment: HDL > or equal to 60 mg/dL: Low cardiovascular risk HDL < 40 mg/dL : High cardiovascular risk Performed By: #### 2 318809, 6339319, 5022406 ####[facility] [address] [place] [address] Cholesterol in LDL [Mass/Vol] 152 mg/dL High <=129 [facility] Comment on above: Performed By: #### 2 801375, 7927257, 6859539 ####[facility] [address] [place] [address] Cholesterol in VLDL [Mass/Vol] 21 mg/dL Normal 7-40 [facility] Comment on above: Performed By: #### 2 882696, 0286066, 6156711 ####[facility] [address] [place] [address] Triglyceride [Mass/Vol] 106 mg/dL Normal <=149 [facility] Comment on above: Performed By: #### 2 451798, 6443883, 2118363 ####[facility] [address] [place] [address] Physician Orderon 05-22-2022 Physician Order [id number]#1.00CD:127 Normal [facility] Coding Summary.on 05-21-2022 Coding Summary. CD:[id number] Gh0bWw+PGhlYWQ+PE1FV PToV49zqWEbqP3SH1kCR N1FZKZUHZBUFC8UVT5st FT8RZdsJ6RdviZb LnifbGFkAB89FFu8ONE1 zAjrUDyehN0pjBQmA6z1 MaApEY39hX64XXurSNBw NfY8YaDlkvcfaPHf S3evZxViuQGhLaa+PHRh YmxlIHdpZHRoPScxMDAl VaZnaYhtXL0sAf4vBCJo LWNvbGxhcHNlOiBj w5ztHNQiCWkkIK4odGya G2HcsCL8UYPox0f8Tb60 dHI+MZSdMFC2sPkiWBpd w990EnTii3nsLQD3 xPMvVPznPVM9E73so9C9 GQUkHHRaOFA7gIW3nC9g gRdkhklgV1UbqNPiUtG4 QWE7oFEfyO6xvRac xzpjoY8lZif+H43RBY5L ZEFYDV7VCst4L0MmQmhm dHI+XM54CTGhOO12tLCy gKYzc9wulSw4QcAm VCXwBVS9dNonEKjpo8Tg ACVsP27zdYNge6U7CJBg cGnnqESpPnLygQQ3nY8p EXxpfzpzd0ncbpri Pnpba9mwue36bG28D23z CEtoNDYyTXU0RZMgDKSe uEmqrz6zmW7cMv8+IDxj t1qpj4fumDp7LjTa KKXaluBjyAaiJXG7b1Vy Gt16M2DljOsns2SoSxz8 lu90eWJff5R3wKK7QEaf XKHskZ0xTMxmMgY9 EGJkFaYciU57gLBfDLuj Kc4mrJtkiWnvMW7aPHKg ldklRESjwZ2aWKXxpPQi wPauTX4zFUKtzuqe k094QbWlEGD9LNYqiXKx V0ZhwI4qVzOmBKUjVKSf Q3CkcIHoJQklN342NIzp ZvT5MJUzbdKxT7Uq SLSpiKarGpD1q6E2Kb1R n2FobbhuMDX9KWttDMVs IcFqWiZuJcV6M4RxSpl9 TOHncQikUG9hG1Ub SQUnsxpjezusuIS8NFZd ELUkhG31pXCrTFvwLd6o s0U2o770HHHmBIUdiO16 Jz1xfRdqXHJuwUDD qS6afjkns9epumctDdTy YQDcLDg5UDu5RDJjsXru UdSaOOC0AjT7BPA8vJZv jG6qqNulbiyulD6p Oyc+Y37wlI7nTFU7UTB8 wtuiNIJzsyYfDG29OD73 K7AdKffcnKXobPJ+PGRp fcDvqJanYY7tOsPn s1pnx8OaMJixT2MwKHUh ODfrWab0IGEdIVA4pOG7 kR1dMBTjPJbxd5E5fLA7 S9SknsYqtl8re5hc LUIyVWgwG64qwGOac2R4 MDXdwAT1KBYtmSjnKtKb gZ05Swz+GNYaxQpny4Vw Ccdly5eac3ehiYb4 IjMwJSIgdmFsaWduPSJ0 d9VrJp54B68hPAskMJIy HYUwJESuLSGxvKtbps5u eX8oWo5+PGNvbCB3 nKE6oG0dMAFrUcR0TArb T754PpOhyBBdThuzq4qb s6hvwLa9ExEaYLXfvwFt tBpvRHM8g7TwZe64 H22qFUhaWQQxBPNhQMXx TRRsxUxrzm4sgK5kMm7+ SH0oj5fwfo83fY95bJV+ FXRoDTK1uQjxKFyg CBTvcT8kVCkfStK6CRJv IvLaiS42iRXqRYdvYk2r xHawfWjqRY9bHKXdczkg a555LzAgc0pdEGCm tEVeDAuzJPZ5U65jd9C6 SAYwBJFyNXH4eBD8eH6c bGlnbjogbGVmdDsgdmVy aSyaOKqaJHkmB086 IHRvcDsnPlBhdGllbnQg OsDgUKe3S8TkBuh6DHVu oAhbNA5qzWLoQRyyFl2w wNfzwGbbDP0lRFGf mwbqa995SoCrj5jvMBHv gRKqTIowBVF8Y09om2I5 MZBxVHWgZXP4jML4kD3h bGlnbjogbGVmdDsg oqApsYbqZGajROykY133 IHRvcDsnPkJpcnRoIERh cOQ1TY96XG39kHOhu6C5 wNG4U9GgOSVcbuoe rtcffQO7VXTlEPVmhY30 Ch8xpEeeIl6xZXZbGAF6 MAUsoIFxF6YmqZ5hAjWe XWVfKTAcT1XhaUNk TSyqH866POdzAzK7WTMi gnGrI5OrCEAgyDcmKgO3 l4Y5Gg8IN0R9GP93NP54 vMHvk9O3wSU7S3Uf YGXbiqmmltocmZJ3PIWd JZKikL53Sa2ztOqkXq9a LFYwFHJ6NIQdgNXaD7Gb rG7hHgRtVYItZFFm W9VdfCLfOUpaL229HRxr UpM6HKVkarPvM5SbHCBm iTngKuR3q9D1Rr2QPLj4 MT09YB40gUQkp0T0 pHF9O6PbMELezlcmhzxz oWM0RPUwHEUopX40Hl0s mAwkMh6vXVShNAI0NDEy rCDcJ5HjkZ3xTmNu MXEiRCFzI1BjgOIhEQkm D828TPzyMlH9VSWfkhLk A3IlIJEryRvvTkO6z9K0 Wq5PNCFbPF41GAF0 tCI1SJ13QZ01E3ApAohe dGFibGU+PHRhYmxlIHdp ZHRoPScxMDAlJyBzdHls SV9wJv4tGTSqLMIn cLfwgUWvQzBvg3hkQGAs RWdhMK5rgPudS0PfpUA2 MALqx2l4Tz28I44zW7Rx dXA+EMPgaED8gKY2 fS5uVzHvWlY8IUsoK902 QeFomDUoFjkis2qrf2xs bSm6UcC4VTQtttUjbAqj UAX6r1WsZn18P69x IHdpZHRoPSIxNSUiIHZh pYoide4wkQ7uAd3+PGNv mMH0hIL3cZ1bAkOpDgA8 SZweK624GhZztBCv Ilujm3xpn4inqIp5TsHc NZGcqaDbnOqmLQT7z4Ae Lh78D9XfjHgoa0NhLqo3 eq79fXXdv4Q4oZI5 C0NuQLBmsolloCXxmRul GG5wSUSojjfhDUGkyA3k EZXpU7c5HrCnKiX1QCop N6EwoiD7DVQcpAWl XNauUDM3B24jn5Y1FOBx PEYmBFA6uTE5vT8znJam bjogbGVmdDsgdmVydGlj ZYyvQVtbC917LYCp fOmqWVHlzB7nICOggFHl bIitMA8rKRFzwyfpWtTR NjnNZFNzKCCEEVVTAH3P ASN4N5XvSvl3MDFo mYfvBF1rcUIdNBbiXk1r yWterRgkAD6cPVVqsuzy MQMjhJ1aLCUveNFvlQee NS7fDTKjiiwit131 MqWcASZ0RNDsuLOdZ9Rd yF2bWuYjKNPsPJBuX5Eu gMIgVTwoD865QXcnHiU8 PRXoswYcC6AtWFLc bQhsHyX7j5V2Iq8pBl1o JD0kERe4BG13ZZ30oUMw l5F2lIE3M4XxZYRqwpfu pufoqVD4FMCsMEOl gP38eZAyRNscNx3bm4H9 l629GUIsDCGhzV66Ky4o vIdxZKYfnJQPaI1kglyc j5hznjyzBjYjWQWl YPt1OHz6RTVeqHgjBfSc UQA6VgQ1SFK8bKXpbF5g uCvosjvmoF8rBbr+NDYg ZVIsthS1I8FqExa6 DUZzbVqeDU2saUSoOJjk Ge6zlOxdbBapJN6eGPBm btkvYSHveV2sKMBbdEQj hNiiXZ0gVSWnwpce m867OqKxGIG3EEBcuLEj A6ByaR3tIlMaMTPvXLDb R2AhlWWnCXkgP087CPuy OkY8NNNgtmBtW3Pw LDIsnZytGtE1h5W5Hb1C KW3hfXX7F5SbQnc2GWEg eIjnBU9pjNIyFCmpOz1m lTefaHozKT5dSYOp idhbDCFtoA3vZSYmjNBi iQgcOT4tRRXrmzvxo036 FdKtLZU9KYVmwPNkX8Bv uY1wVoRuXJGlAZOl G2ZqcOHdHPbeC709OMnp UsG4EHWykhKpU5YaMTLh gZqdYzE9v7N7Dz8FlHDm BLUfTO82BY70OK92 R1NnYwxiuWDkyUN+PHRh YmxlIHdpZHRoPScxMDAl VaMiqAacLM1xBi8mIWTz LWNvbGxhcHNlOiBj p0chCGVuQVmqCK2kdUrb A7YdwMR4UNCya5f5Ws41 N79pP3TniLK+PGNvbCB3 fOQ9xY2eEcQbWrE5 WVrzX726DaNfbJYqDlej x8bht2ljlSn2AcVhTMCe hwXjbGwiYRM7g6KpVs76 O44oHNjwHBYlOMVk ERCmHTGylQwtvz1edW6i Ii8+LVRaeVA6rFB0xZ8v KlRqPmW5FCcvX194UrMf xFGfGmhgN52wA9Pe dXA+RMIbDzk0XBOueMdv VB5gdRWhBHtdYq7sYJP5 NqThHlNhNPikG8NhLEIh aujntdwylNK1YTXd TZFemO64Ar1wfBwcUo4f WJLbYKV4EKDxrBQvQ8Iv gK7bThSsMAVvOYAlO9Rw pWLpXFzdM584GNuo UqV6AKColzYoP3YvZCJi cCiwTaH6v5T4Mv6FpTdp jXMqCS4vJqMnDZz4B3Gc Fvn4DZCvnIcaKB3x qOKfYZauGl2imTjqzZmj WG9rNFBbmxhkn182BkNn w9vqXSTgwJMdELjxYPH1 P62cu5Y4ZFXcZZSc PNU8gCQ2yF2hlMrjrbll bGVmdDsgdmVydGljYWwt VDblK758SFCloUaqMpQS Fds2N2UdFob7ESXw bUlbKR4pbAUdMYecUp9d tNlitQnvKC2vJTExdtog q630MoQyt2vsILQviDPx IBmtDZQ8F73hm3D2 PVTrYXVsAUZ2cDF5oN4s bGlnbjogbGVmdDsgdmVy wRamXWxsNOvlF500PBXz hDrpBd7JIgb1V5Ob Dbg4AUCcaUiwXY0cjOKj EPmlGb4duZzsnAkpLF2s QAIlfvatw150EvDec9lp IDEwcHQgVGltZXM7 S25jl7C4WNZgDAMmMAR6 jUW4rL9ikWevjasnvGIe dDsgdmVydGljYWwtYWxp V541JSKocUncJtVm eWVyOjwvdGQ+NM61zn63 E1EgFoxsPng7YPJqLRY0 zGG4jA2nVFCnNDjrt8W2 kNL0C5PougVnmf5q b2xs (more content not included)... Normal [facility] Physician Orderon 05-20-2022 Physician Order [id number] #1.00CD:127 Normal [facility] MA Mamm Screen w/CAD if perf and 3D Bilon 05-17-2022 MA Mamm Screen w/CAD if perf and 3D Jeromy Exam Date/Time: 05/16/2022 15:15 EST Reason for Exam: Z12. Report IMPRESSION: BIRADS 0 - INCOMPLETE, NEED ADDITIONAL IMAGING EVALUATION. Left breast ultrasound recommended. EXAMINATION: MA Mamm Screen w/CAD if perf and 3D Jeromy CLINICAL HISTORY: Z06.08 COMPARISON: Priors from 2016, 2015 RESULT: Digital mammography and 3D tomosynthesis of bilateral breasts was performed. The breasts are heterogenously dense which may obscure small masses. Biopsy clip left breast. Rounded nodular asymmetry within the central left breast at mid to posterior depth, measuring around 5.0 cm. Further evaluation with ultrasound recommended. This may represent a cyst. Stable asymmetries within the right breast. CAD analysis was performed and used in the interpretation. Dense Breast: Yes Follow-up: RECALL NOW. Board Certified Radiologists. Accredited by the ACR and FDA. MAMMOGRAPHY IS VERY IMPORTANT TO YOUR HEALTH. THE [place] [employer] GUIDELINES RECOMMEND THAT WOMEN 40 YEARS OF AGE AND OLDER SHOULD HAVE A MAMMOGRAM EVERY YEAR. A REMINDER LETTER WILL BE SENT AT THE APPROPRIATE TIME. THIS FACILITY UTILIZES A REMINDER SYSTEM TO ENSURE ALL PATIENTS RECEIVE REMINDER NOTIFICATIONS AT THE APPROPRIATE TIME BASED ON THE RECOMMENDATIONS OF THIS EXAM. THIS INCLUDES REMINDERS FOR ROUTINE SCREENING MAMMOGRAMS, DIAGNOSTIC MAMMOGRAMS IN WHICH THE PATIENT IS ASKED TO RETURN FOR ADDITIONAL VIEWS, OR OTHER BREAST IMAGING INTERVENTIONS WHEN APPROPRIATE. THE PATIENT WILL BE PLACED IN THE APPROPRIATE REMINDER SYSTEM INCLUDING A REMINDER AT THE APPROPRIATE TIME FOR ANY PENDING ADDITIONAL VIEWS. FINAL REPORT Dictated: 05/17/2022 3:48 pm Chace Sebastian MD. Signed (Electronic Signature): 05/17/2022 3:48 pm Signed by: Chace Sebastian MD Transcribed by: MIKAYLA Technologist: DENILSON Assessment: BI-RADS Category 0-Incomplete: Need additional imaging evaluation Recommendation: Additional projections Normal [facility] Consent for Treatmenton Consent for Treatment [id number] #1.00CD:127 [facility] Coding Summary.on 05-06-2022 Coding Summary. [id number] Gh0bWw+PGhlYWQ+PE1FV FPcO68hfGBorM4GS7sXD K0NNYAEFYGXZG8HRL5dv ZO5GCbiN0DjfpIe ZzofiPRqFM42TJc0NXU3 zDeaVVzlgI7rbZCtD2q9 XmMsIZ17qI20CJywSTTw ZxO5NaMcgudsuPEm U3frWzQwxQAhZtx+PHRh YmxlIHdpZHRoPScxMDAl ZpIqzJdyYS7uOx7lVAKn LWNvbGxhcHNlOiBj b0gpLWNtXFxwDB4flTls A4IbxTQ9PZYyi6f2Xd04 dHI+FWWuYAQ6aQlzNLnf u595ZjWgn7rqEGI1 yGIdGKeqTVP1C79la4O3 NAGoDFYfIXT2mUL8iC4n mVzyrecuA7VqdYWpBxV6 CSA7jUQmcX0muMhe fyfwcZ5xAdc+D56CCP2D NDZJPD9TYdq7T8NyXemd dHI+HO32BHFmAL08yKBp zTXhb7wutJd9VgEg VALaALO2hSqjGPzhm0Gu ECJsX39unHJsh6V3TKEh bVesrGYiEeRwcUA0cB1j NEerodpjc4axwrxw Feiak7utse70nX03T94m OBnfNDQlHMZ4MUHwDMNj mKugyy3vaB2hAp0+IDxj i7pjt5jhmFf7GzXf LLCmwhSwhNcrOTK7t8Iy Wm72Y6MpyAtqi6ExYhv3 al55eTEik1H0hJG9QNtx ZLKrhV0eRClkWyG3 ZVSwZlRpjI06xDBnTYyt Kt1xqAflqYgwCC0vDVCv epnoCZKewI6nNTVrqWQf sNnhHM2gERViscyy b219KoPmYLW5WCLalPUr E6SzwJ6cGcZnXJFqNIEu V6JxrDIvNVmaX218NRqm BaV7CHBruuZcW2Ip NGCwfXraElV3m8Z0Gy9I c7SvblpqUIO0VPjvKLUj UvR5VqMsZlR2I9MzMsr8 YLMcgFexZV0uA2Pj XRDcyedsjfczmYK2DYRc BUQjfS44hUYzLKvuXf7w n9U5s380UMLiTUFvvZ29 Bk4oxMbhPRMklCIP sR8ffoggk4tqfxzfEuGr DBLmKKf1PWp9ALUsjPpn NyHdXJQ8KnR6UZE2oKKv kI2wjDmewxywrX8r Oyc+Z33htZ8sPMK3YDG6 nbbuOISqcbHsBR46PZ32 C1EkBksdcFBwiPK+PGRp bsQekJyvEB7sDxVd x4iuw6LxGFbeV7ObXUBw WEepIfp1FUKaGRF6kJQ7 tL7tITHeFMbie3U3rLA0 P2RdzgZeyw2pk0ko PLZtJYdkF65phYWki5O9 DUNxuHA1CZPgjAawTkCl uF35Gxz+NYVsrWtvi8Kr Hrlpl5ogk2bmoPw7 IjMwJSIgdmFsaWduPSJ0 g1KgVt92R55bAFekQVVr GUPpCPUyGLPckPmflo6b bX6wGf9+PGNvbCB3 yDU2wU1dLAOnBgC1JRnw G552RyDxjKSeLclij8je u3yvjIr4WkEiQJWoixAw pIwcQMG1y9KaPn91 K91qZRklIYGzHJHgUGZz LCIlzBaxlv6fsD8nFg9+ IO9dp1kmts89yG46vER+ KURqDXB1xUhjFDgy VCWqlS2iSWejJqE5WSDw HeOfiQ01wMLqZKfpIf8h rXifnHmcVC6uKFKopjfq u265CsXvq0bbGXFb eUViGUtqOPH6A47tl0N8 NAXvUZGjROZ7lTU9bP9y bGlnbjogbGVmdDsgdmVy lXlqRZkjGUirG222 IHRvcDsnPlBhdGllbnQg DsOjGTi2I7KnFty0OBSv pTaeGJ4cePAwPUqrHx8d fGgtyJahJF2rFQLu knxyt251SmMgm6mtRIZr rLEuTJolLRU4R95vy0D8 YADdLXIlFGQ3xJZ0dC8s bGlnbjogbGVmdDsg stPrqKxzULzyXTaaR144 IHRvcDsnPkJpcnRoIERh dGA3JI61JP09wRBlb2V4 iOL0V3PvRMLbqhxp qazfqJJ1VOVfQRKvpH46 Hv2irZttMw1kMVRcWIV4 OTRckGGsO5EtgI5hMgDd XVVtYZNvW4MckTVj XMlkD008LQerNgL2EGWv jqElM6MlTWMydCrpDgX6 k5G3Wk8BA6K8PV40WH46 tWLnv2N0pPB7C3Vv YPYcutvctxvjdOB7LPBl OAEzwP26Od1ooKtlCr6u DTCzOPM2HIWbtURcD5Xa oB0dCjNyAPDrWFRf M9MktWQsZOmkQ710JYct CbQ9YFRwjnNoV2OiKUBk rCprVtW0s9P9Pl6XGVz4 BH58IO20wAMyl2Z2 rWE0H7EcSRLnatnhzket bGZ5XANoTGZmeM88Pl7o zIouCs8jLXEdZRX8HVJe sBUnA3IsfT9uDuZo TOMgRBVrG3FdnRCpBKog M257GSevFyF0KPQsoaJn F9DeERWwtGqdAmG4k5J2 Bt3RCGOcNC42ZOT7 qKB1AV06RZ21X4ZpIyks dGFibGU+PHRhYmxlIHdp ZHRoPScxMDAlJyBzdHls TH9jTt0vMZOcGTKc bQfiaVMnScNkg9ymZJZf QSnnGL1skUmlD2JiqDV3 MXFtm2a3Uz96E56iT2Au dXA+VALtnBZ2nZQ8 yZ9jYiSqNvM3SQooZ958 OuYorEOyDejyp8hbw5jl vPr5HpV0OBMojjVhaDgm OYU3w0LtHq54F42x IHdpZHRoPSIxNSUiIHZh dUqhxs3qhS9qGd1+PGNv nPN1xFM3fX2lYqWmJpM7 FJkqQ021LkPrbCZo Yhcyr9ztp8qnbEq6UoAx RLZuzfSrvZxuHRG5q6Mu Zu39L7CnfCkoc9OpNzq0 me04fEAzn3P0xSD3 K9ZwFGYglawskSNgzCer MM0zLGLndbziRFKqeH8n FUWlE3v1ImBpAmO3VXzd N9GxqyY1JAIlpQYx TXjwFRF3E67tg5J5XEGa ZPAmAVC5pUM8oK8lhHen bjogbGVmdDsgdmVydGlj NZrqKNtqC154AGCi kBvvFNSviV9kSFIysIQm nDvpOV8cCQUasgycAuJP JxjYFZPfWZJILXJKTQ0S VTD1P3TnUse0YHGe gNqxIO8jqIOpBLpnIl9y qYwdfJbdWH6kHHBzovsr LHFkcX7yQVXtdHYcbPyb HV8rODXzbydnm342 EgOgGZI6FEFgzBDeZ5Ll kX3bRhPsZEAfGGQqK8Tk kONaILpcJ889RPxuVcU9 GQZvoxWaL4BqUFDg sBlpKaI2h3N8Qy0rNv1b WV1nFTx2RV93VO17bANi i4V8iEJ2U9ZuWLUibtgv oseerAD9JUWxOZDg eE97eWEzLPkoIx8fy0O8 k486EKHaMCGhwP68Gu9j uEshPFQbkGFCuG4tfyps d5ktjilsAcSgSFDq ESh3WLo3RFKqqBsvRoZx OCG6NnU5NHP0mIMoaN3g aQccxacehH5kIhy+NDYg FMVhpmO7R6EjHcw4 URDjrPciCH2boADsEVvm Tj3sgGmipQwrSC8uNHWu kwhrNLYhkZ6xIPMlcBOx hSajNU8aZQSybpox y105PhTqQRA1WZOpkOGi H5ZvnV8aAiVdGEJuALWi Q2ZudLTeNGbmG011SMbq MxQ3NSTlmhJpE1Ib BTFhaAziRxX2q3L3Ht4I AQ6hxOC6N6UaWtn0IVAy lWrcAX0zaIHsGOrgLq8j zXtroXowBW4pTZDq abuoIWHimA4vBUWamYUk dRwdZT6vCFIwfoahn014 WtMzQRO5BZWpgFYoX4Aj oS7zYuYyKMZsAVWd B7FgfCWcSYonZ083FUna OkT1CNBujsCuB1FaSCGw qBjuZxU2e6L5Je7YdPDm PHQgTK76QP49XA55 A1DvNkmxcLHauAF+PHRh YmxlIHdpZHRoPScxMDAl VsLajDjnKR5jYp9tNZIo LWNvbGxhcHNlOiBj n0xrMYTbZXdhRA6asLlv Y3UszMO6QAQxj3d3Fn25 S46mF0SmfNJ+PGNvbCB3 zNR0uK7zAnCrVmX6 HQpeI146RuQooZZkZadn z2hnv4dzaIl1KvHbLPQx kbXbvNdjLIC0m2IvPc17 U27bGKzxAESiJPJw TWBdHZNkpVuldi6ooZ0r Ii8+YLHfhHB9tKW6aB9v HxFfHfF8TBgoO486NqEo dEWgLqyrA54wJ7Pa dXA+QMWmVzl0XUYniTxi UF0kvRIdDMwuQi9bPSG7 XgKnRyXwEAlwB0IfZBAw kwaeavolgEF0FECz MSRqbO89Ir4jwMqqMi3t SSHlURK2MMAphOZiI3It nC6sVcYtEMWcWTSxT0Xl nTIxUTvzQ973SQir VyW5HROhouGnW1ZaEBDt zNhwZoM1i1N2Po0EsPrb yAThRU3tRqFmMMu1A0Eq Ynb8NDLhdXgsBW7f yIJdRHgeOu7jyUezsNqd DW3tNYUfnqvyx166LfSx f0iqRCDbvRHxKOgmQXX1 Q17zq9X5YQQaUBJz AXN1qSO0lP0nhGwesdqw bGVmdDsgdmVydGljYWwt IZxtP089QAHegYmeLxWF Guh7P6WiGfr2BKMr uJkpTW8peRTmZCxhUi2n oJuieJqmNS2vWGCtsswe l317JkUmn7ffPOKguBSs DFqoOVN2X15qn9J2 SAVxGIHcSUG6mZQ1qF8f bGlnbjogbGVmdDsgdmVy rIuiXQljIYufH880HMWj yGbzOm7XVfr0P7Rg Ket7ZQAxmHalNE8nwIFf MPmsMr2beWouqOfpSN2w BDFimnodz299EzDbs5sw IDEwcHQgVGltZXM7 I50ri5U0VMLpLZGeFTJ2 kEI8aT7unIrtwzbovPQi dDsgdmVydGljYWwtYWxp E013DLSwsOwhWxYn eWVyOjwvdGQ+ND24wj58 O0PfZrmsErj7QJRaDDP4 qQZ1qX0dQPQqOIjrd5E4 pVT9K5HxdeIzcf0i b2xs (more content not included)... Normal [facility] CHEMISTRYOrdered By: SYSTEM SYSTEM on 05-01-2022 25-hydroxyvitamin D3 [Mass/Vol] 33.5 ng/mL Normal 30.0 - 100.0 ng/mL [facility] Albumin [Mass/Vol] 4.5 g/dL Normal 3.3 - 5.0 gm/dL [facility] Albumin/Globulin [Mass ratio] 1.2 {ratio} Normal 1.1 - 2.2 [facility] ALP [Catalytic activity/Vol] 49 [iU]/d Normal 21 - 98 Int._Unit/L [facility] ALT No additional P-5'-P [Catalytic activity/Vol] 40 [iU]/d Normal 6 - 46 Int._Unit/L [facility] Comment on above: Result Comment: 'Spe cimen hemolyzed, result may be affected. Recommend redraw.' Anion gap [Moles/Vol] 10 mmol/L Normal 6 - 16 mEq/L [facility] AST [Catalytic activity/Vol] 45 [iU]/d High 5 - 43 Int._Unit/L [facility] Comment on above: Result Comment: 'Spe cimen hemolyzed, result may be affected. Recommend redraw.' Bilirubin [Mass/Vol] 1.4 mg/dL High 0.0 - 1 .1 mg/dL [facility] Comment on above: Result Comment: 'Spe cimen hemolyzed, result may be affected. Redraw is recommended.' Calcium [Mass/Vol] 9.0 mg/dL Normal 8.9 - 11. 1 mg/dL [facility] Chloride [Moles/Vol] 103 mmol/L Normal 101 - 1 11 mmol/L [facility] Cholesterol [Mass/Vol] 256 mg/dL High 120 - 200 mg/dL [facility] Cholesterol in HDL [Mass/Vol] 52 mg/dL Invalid Interpretation Code [facility] Cholesterol in LDL [Mass/Vol] 186 mg/dL High <=129mg/dL [facility] Cholesterol in VLDL [Mass/Vol] 19 mg/dL Normal 7 - 40 mg/dL [facility] CO2 [Moles/Vol] 24 mmol/L Normal 21 - 31 mmol/L [facility] Creatinine [Mass/Vol] 0.9 mg/dL Normal 0.5 - 1.3 mg/dL [facility] GFR/1.73 sq M.predicted among blacks MDRD (S/P/Bld) [Vol rate/Area] mL/min/1.73 m2 Normal >=59mL/min/1. 73 m2 [facility] Chem S GFR/1.73 sq M.predicted among non-blacks MDRD (S/P/Bld) [Vol rate/Area] mL/min/1.73 m2 Normal >=59mL/min/1. 73 m2 [facility] S Globulin (S) [Mass/Vol] 3.7 g/dL Normal 1.4 - 4.0 gm/dL [facility] Remisol Glucose [Mass/Vol] 97 mg/dL Normal 55 - 199 mg/dL [facility] Remisol Potassium [Moles/Vol] 4.4 mmol/L Normal 3.5 - 5.3 mmol/L [facility] Remisol Comment on above: Result Comment: 'Spe cimen hemolyzed. Result may be affected. Redraw is recommended.' Protein [Mass/Vol] 8.2 g/dL High 6.0 - 7.8 gm/dL [facility] Rem[facility] Sodium [Moles/Vol] 133 mmol/L Low 135 - 145 mmol/L [facility] Triglyceride [Mass/Vol] 97 mg/dL Normal <=149mg/dL [facility] TSH Qn 1.64 m[IU]/L Normal 0.34 - 5.60 mcIU/mL [facility] Urea nitrogen [Mass/Vol] 16 mg/dL Normal 5 - 21 mg/dL [facility] Rem[facility] Urea nitrogen/Creatinine [Mass ratio] 18 mg/mg Normal 10 - 20 [facility] Remisol HEMATOLOGYOrdered By: Francisco Joel on 05-01-2022 Erythrocyte distribution width (RBC) [Ratio] 13.6 % Normal 10.9 - 14.2 % [facility] HemeAutoSS Hematocrit (Bld) [Volume fraction] 41.8 % Normal 34.0 - 46.0 % [facility] HemeAutoSS Hemoglobin (Bld) [Mass/Vol] 14.0 g/dL Normal 12.0 - 16.0 gm/dL [facility] HemeAutoSS MCH (RBC) [Entitic mass] 29.1 pg Normal 27.0 - 34.0 pg [facility] HemeAutoSS MCHC (RBC) [Mass/Vol] 33.4 g/dL Normal 31.4 - 36.0 gm/dL [facility] HemeAutoSS MCV (RBC) [Entitic vol] 87.2 fL Normal 80.0 - 100.0 fL [facility] HemeAutoSS Platelet mean volume (Bld) [Entitic vol] 10.1 fL Normal 6.4 - 10.8 fL [facility] HemeAutoSS Platelets (Bld) [#/Vol] 61.0 E9/L Low 150.0 - 500.0 E9/L [facility] HemeAutoSS Comment on above: Result Comment: Plat elet count verified using smear estimate. cmk RBC (Bld) [#/Vol] 4.8 E12/L Normal 4.3 - 5.9 E12/L [facility] HemeAutoSS WBC corrected for nucl RBC Auto (Bld) [#/Vol] 8.6 E9/L Normal 4.0 - 11.0 E9/L [facility] HemeAutoSS CT NECK WITHOUT CONTRASTon 0 09-26-2020 CT NECK WITHOUT CONTRAST EXAM: CT NECK WITHOUT CONTRAST, 09/25/2020 14:17 PM COMPARISON: None. CLINICAL INDICATIONS: 44 years Female please evaluate stylohyoid ligament for left [place] syndrome.; RELEVANT CLINICAL HISTORY: M24.20:[place]'s syndrome TECHNIQUE: A series of transaxial multislice computerized tomographic images are obtained with helical technique from top of aortic arch through skull base without contrast. Axial 3 mm and coronal and sagittal 2 mm reformats are provided. FINDINGS: There is perhaps mild asymmetric elongation of the left styloid process, with the left side measuring about 3.2 cm and the right side measuring about 2.7 cm in length. The stylohyoid ligaments are not ossified. Aerodigestive tract is within normal limits. Parotid, submandibular and thyroid glands are unremarkable. Small scattered lymph nodes are seen in the suprahyoid and infrahyoid neck bilaterally without evidence of adenopathy by standard CT criteria. Visualized skull base, sinuses, and orbits are unremarkable. IMPRESSION: Mild elongation of the left styloid process, without significant ossification of the stylohyoid ligaments. Otherwise unremarkable neck CT. Normal [facility] ALLIED HEALTHon 12-31-2019 ALLIED HEALTH HNO ID: [id number] Author: Delvis Reyes (Tech) Service: ? Author Type: Chemical Lab Supervisor Type: Allied Health Filed: 12/31/2019 2:33 PM Note Text: Radiology Service Progress Note DATE OF SERVICE: December 31, 2019 TIME: 2:32 PM PATIENT IDENTITY VERIFICATION COMPLETED USING TWO (2) STANDARD IDENTIFIERS: Name and Date of confirmed by patient verbally and Name and Date of confirmed by identification band. FALL SCREENING: Has the patient had 2 falls in the last year or 1 fall with injury or currently using an Ambulatory Assistive Device (Walker, Cane, Wheelchair, Crutches, etc.)? No PATIENT GENDER DATA: Female. status: : No status: NO. PATIENT RELEVANT IMPLANT DATA REVIEWED: Yes ALLERGIES: Reviewed and unchanged CONTRAST ALLERGY: NO. EXAM: MRI - CONTRAST TYPE: GROUP II PERIPHERAL IV DATA: Ambulatory: A peripheral IV was started in the Left with a Angio cath: 24 gauge. RADIOLOGY DEPARTMENT: MR; Exam(s) Completed: Head: Cranial Nerve, [place] MRA SIGNATURE: Delvis Reyes, RT Phoebe PATIENT NAME: Thaddeus Scriver DATE: December 31, 2019 TIME: 2:32 PM [facility] MRA BRAIN WO IVCONon 020 MRA BRAIN WO IVCON * * *Final Report* * * DATE OF EXAM: Dec 31 2019 2:34PM [facility] 0272 - MRA BRAIN WO IVCON / PROCEDURE REASON: Cranial neuralgia * * * * Physician Interpretation * * * * EXAMINATION: MRI BRAIN WO/W IVCON, MRA BRAIN WO IVCON HISTORY: Cranial neuralgia TECHNIQUE: Noncontrast MRI brain protocol including diffusion and CISS sequences and post contrast images. Intracranial 3D [id number]-jb-[id number] MRA with 2D multiplanar and 3D maximum intensity projections calculated on the imaging workstation under physician supervision. M: MRAB_3 COMPARISON: None. RESULT: BRAIN: Acute Change: No evidence of an acute intracranial process. Hemorrhage: No findings to suggest prior parenchymal hemorrhage. Mass Lesion/ Mass Effect: No evidence of an intracranial mass or extra-axial fluid collection. No significant mass effect. Chronic Change: The white matter is within normal limits of signal intensity for age. Parenchyma: No significant volume loss for age. The brain parenchyma is otherwise within normal limits of signal intensity and morphology. Ventricles: Normal caliber and morphology. Skull Base: Hypothalamic and pituitary region are grossly normal. Craniocervical junction is normal. No significant marrow replacement process. Vasculature: Major intracranial arterial structures and dural venous sinuses demonstrate typical flow voids, suggesting patency by spin echo criteria. Other: The visualized paranasal sinuses and mastoid air cells are clear. The orbits and extracranial soft tissues are unremarkable. Cranial nerves: The visualized cranial nerves (fifth, seventh and eighth, ninth) are within normal limits. INTRACRANIAL MRA: Anterior circulation: The internal carotid artery, middle cerebral artery, and anterior cerebral artery are patent. Intraparenchymal indicating artery is patent. Left posterior communicating artery is visualized and is patent. Right posterior indicating artery is not well seen. Posterior circulation: Bilateral vertebral arteries (codominant), basilar artery, and bilateral posterior cerebral arteries are patent. Bilateral superior cerebellar arteries and bilateral anterior inferior cerebral artery are patent. No findings of filling defect, stenosis, or aneurysm. IMPRESSION: No MR evidence of intracranial abnormality. Visualized cranial nerves are within normal limits. No pathologic enhancement in the visualized brain or skull base. Intracranial vessels are patent. Resident Inspector: PSCB Transcribe Date/Time: Dec 31 2019 2:40P Dictated by : CAROL MCGEE MD This examination was interpreted and the report reviewed and electronically signed by: KELLY FITZPATRICK MD on Dec 31 2019 3:52PM EST [id number] [facility] MRI BRAIN WO/W IVCONon 12-30 MRI BRAIN WO/W IVCON * * *Final Report* * * DATE OF EXAM: Dec 31 2019 2:34PM [facility] 0295 - MRI BRAIN WO/W IVCON / PROCEDURE REASON: Cranial neuralgia * * * * Physician Interpretation * * * * EXAMINATION: MRI BRAIN WO/W IVCON, MRA BRAIN WO IVCON HISTORY: Cranial neuralgia TECHNIQUE: Noncontrast MRI brain protocol including diffusion and CISS sequences and post contrast images. Intracranial 3D qjft-zl-cyoiuk MRA with 2D multiplanar and 3D maximum intensity projections calculated on the imaging workstation under physician supervision. M: MRAB_3 COMPARISON: None. RESULT: BRAIN: Acute Change: No evidence of an acute intracranial process. Hemorrhage: No findings to suggest prior parenchymal hemorrhage. Mass Lesion/ Mass Effect: No evidence of an intracranial mass or extra-axial fluid collection. No significant mass effect. Chronic Change: The white matter is within normal limits of signal intensity for age. Parenchyma: No significant volume loss for age. The brain parenchyma is otherwise within normal limits of signal intensity and morphology. Ventricles: Normal caliber and morphology. Skull Base: Hypothalamic and pituitary region are grossly normal. Craniocervical junction is normal. No significant marrow replacement process. Vasculature: Major intracranial arterial structures and dural venous sinuses demonstrate typical flow voids, suggesting patency by spin echo criteria. Other: The visualized paranasal sinuses and mastoid air cells are clear. The orbits and extracranial soft tissues are unremarkable. Cranial nerves: The visualized cranial nerves (fifth, seventh and eighth, ninth) are within normal limits. INTRACRANIAL MRA: Anterior circulation: The internal carotid artery, middle cerebral artery, and anterior cerebral artery are patent. Intraparenchymal indicating artery is patent. Left posterior communicating artery is visualized and is patent. Right posterior indicating artery is not well seen. Posterior circulation: Bilateral vertebral arteries (codominant), basilar artery, and bilateral posterior cerebral arteries are patent. Bilateral superior cerebellar arteries and bilateral anterior inferior cerebral artery are patent. No findings of filling defect, stenosis, or aneurysm. IMPRESSION: No MR evidence of intracranial abnormality. Visualized cranial nerves are within normal limits. No pathologic enhancement in the visualized brain or skull base. Intracranial vessels are patent. Resident Inspector: PSCB Transcribe Date/Time: Dec 31 2019 2:40P Dictated by : CAROL MCGEE MD This examination was interpreted and the report reviewed and electronically signed by: KELLY FITZPATRICK MD on Dec 31 2019 3:52PM EST [id number] CN Normal [facility] PROGRESSon 12-07-2019 PROGRESS HNO ID: [id number] Author: Alba Johns Service: ? Author Type: Physician Type: Progress Notes Filed: 12/07/2019 2:01 PM Note Text: DISTANCE HEALTH VISIT This visit is a distance health encounter. It required patient-provider interaction for the medical decision making as documented below. 1. Patient has consented to this video encounter instead of office visit due to COVID-19 pandemic 2. Patient and provider present during telemedicine encounter 3. Reason: headache 4. Total time spent on medical discussion : 45 minutes INITIAL CONSULT - HEADACHE MEDICINE SERVICE DATE: 12/07/2019 Requesting Provider: self Subjective HPI: Thaddeus Cronin is a 44 year old female with a chief complaint of ear pain. Left ear pain for 4 years. She went to ENT and was told it was not ENT related. Her PCP has been treating at as a neuralgia with Gabapentin which has lost efficacy. Pain description: Nature: Burning sensation Location: inside the left ear canal. She thinks sometimes may radiate to her throat. Triggers: none Frequency: Daily and constant Associated symptoms: pinna pain Past treatments: Steroids Current meds: Gabapentin 300 mg QID PMH: healthy PAST SURGICAL HISTORY Procedure Laterality Date - SNGL x2 - HYSTERECTOMY 2013 enlarged uterus Social History Tobacco Use - Smoking status: Current Every Day Smoker Packs/day: 1.00 Years: 2.00 Pack years: 2.00 Substance Use Topics - Alcohol use: Yes Comment: occasional - Drug use: No FAMILY HISTORY Problem Relation Age of Onset - Breast Cancer Paternal Grandmother 54 ALLERGIES No Known Allergies Objective REVIEW OF SYSTEMS: GENERAL: no fevers or irritability. HEENT: no nose bleeds or other nasal problems. NECK: Negative for stiffness, lumps or significant neck swelling RESPIRATORY: Negative for cough, wheezing or respiratory distress. CARDIOVASCULAR: Negative for chest pain, syncope, lightheadness or heart racing. GI: Negative for abdominal discomfort, blood in stools or black stools or change in bowel habits : No history of dysuria, frequency or incontinence MUSCULOSKELETAL: Negative for joint pain or swelling, back pain or muscle pain. SKIN: Negative for lesions, rash, and itching. NEURO: See HPI Impression/Recommend ations - painful cranial neuropathy. Based on location of pain Glossopharyngeal nerve and nervus intermedius are the most likely etiologies. We must rule out a secondary cause with dedicated imaging. RECS: 1. MRI brain wwo contrast, MRA brain 2. If above is normal the serology for neuropathy 3. I asked her to find orofacial pain specialist to look for non-pharmacological approach to her pain 4. Medication trials in order: - increase Gabapentin to 600 mg TID. That can be doubled every 2 weeks if needed - trial of carbamazepine or Oxcarbazepine - trial of Pregabalin 5. Next appointment should be with me in person to document neuro exam. SIGNATURE: Alba Johns MD PATIENT NAME: Thaddeus Scriver DATE: December 07, 2019 TIME: 7:56 AM Normal [facility] Vital Signs Date Time Vital Sign Value [facility]forming [facility] 07-15-2023 13:32-0500 Body mass index (BMI) [Ratio] 32.52 kg/m2 Jose Katty DO Work Phone: [facility] 07-15-2023 13:32-0500 Body weight 80.65 kg Jose Katty DO Work Phone: [facility] 07-15-2023 13:32-0500 Diastolic blood pressure 84 mm[Hg] Jose Katty DO Work Phone: [facility] 07-15-2023 13:32-0500 Systolic blood pressure 122 mm[Hg] Jose Katty DO Work Phone: [facility] 04-25-2023 09:55-0500 Diastolic blood pressure 91 mm[Hg] Guillermo Mueller [facility] 04-25-2023 09:55-0500 Heart rate 66 /min Guillermo Mueller [facility] 04-25-2023 09:55-0500 Systolic blood pressure 146 mm[Hg] Guillermo Mueller [facility] Encounters Encounter Date Encounter Type Care Provider Facility Start: 07-15-2023 End: 07-15-2023 ambulatory JOSE SCHAEFERO Not Available Start: 07-15-2023 End: 07-15-2023 Office outpatient new 20 minutes Jose Alaniz DO Work Phone: [facility] Comment on above: Mass of left breast, unspecified quadrant Start: 05-06-2023 ambulatory Guillermo Mueller Facilit y:[facility] Start: 04-25-2023 End: 04-26-2023 ambulatory Guillermo Mueller Facility:[facility] Start: 04-25-2023 End: 04-25-2023 Patient encounter procedure Guillermo Mueller [facility] Start: 04-17-2023 End: 04-18-2023 ambulatory Oneida Bahena [facility] Start: 04-17-2023 End: 04-17-2023 Patient encounter procedure Oneida Bahena [facility] Start: 05-23-2022 End: 05-24-2022 ambulatory Jalen Matthews [facility] Start: 05-23-2022 End: 05-23-2022 Patient encounter procedure Jalen Matthews [facility] Start: 05-22-2022 End: 05-23-2022 ambulatory Jalen Matthews Facility[facility] Start: 05-22-2022 End: 05-22-2022 Patient encounter procedure Jalen Matthews [facility] Start: 05-16-2022 End: 05-17-2022 ambulatory Jalen Matthews Facility[facility] Start: 05-01-2022 End: 05-01-2022 Patient encounter procedure Jalen Matthews [facility] Start: 11-21-2020 ambulatory SELF SELF Facility:[facility] Start: 11-10-2020 ambulatory ANNA GREEN Facility :[facility] Start: 10-13-2020 ambulatory KEVIN VELÁZQUEZ Facility: [facility] Start: 10-13-2020 ambulatory KEVIN VELÁZQUEZ Facility: [facility] Start: 09-25-2020 ambulatory KEVIN VELÁZQUEZ Facility: [facility] Start: 09-12-2020 ambulatory KEVIN VELÁZQUEZ Facility: [facility] Procedures Date Procedure Procedure Detail Performing Clinician Start: 12-01-2018 Echocardiography Start: 02-03-2015 diagnostic hysterosc opy with endometrial ablation Jalen Matthews section Jalen wells Comment on above: x2 2011 Endometrial ablation Jalen ward Ligation of fallopian tube Tomas Olivoten Comment on above: with second c sectio n Plan of Treatment Date Care Activity Detail Author Start: 07-15-2023 End: 09-12-2024 MG Breast - bilateral Diagnostic Bilateral diagnostic mammogram Imaging Routine Mass of left breast, unspecified quadrant Expected: 07/15/2023 (Approximate), Expires: 09/12/2024 [facility] Work Phone: Comment on above: Expected: 07/15/2023 (Approximate), Expires: 09/12/2024 Immunizations Immunization Date Immunization Notes Care Provider Yomaira rojas 05-29-2012 tetanus toxoid, reduced diphtheria toxoid, and acellular pertussis vaccine, adsorbed Jalen Matthews [facility] Comment on above: Reason for Medicatio n: Other (see comment) NEGATED: Highlighted row has not occurred!04-25-2023 SARS-CoV-2 mRNA (tozinameran 5y-11y) vaccine Guillermo Mueller [facility] NEGATED: Highlighted row has not occurred!04-25-2023 influenza virus vaccine, unspecified formulation Guillermo Mueller [facility] Payers Date Payer Category Payer Medicaid [employer] [place] [id number] 2022-Present [address] [place] [address] [id number] 2022 Medicaid [id number] 2020 Medicaid [id number] 1975 Unknown [id number] 1975 Unknown [id number] 1975 Unknown [id number] 1975 Unknown [id number] 1975 Unknown [id number] 1975 Unknown [id number] 1975 Unknown [id number] 1975 Unknown [id number] 1975 Unknown [id number] 1975 Unknown [id number] 1975 Unknown [id number] 1975 Unknown [id number] 1975 Unknown [id number] Social History Date Type Detail Facility Tobacco smoking status [facility] Start: 06-24-2023 Sex Assigned At Female [facility] Start: 04-25-2023 Tobacco smoking status Heavy tobacco smoker (finding) [facility] [place] Start: 06-24-2023 Tobacco smoking status NHIS Smokes tobacco daily [facility] History of tobacco use Cigarette Smoker N [facility] Start: 06-24-2023 Cigarettes smoked current (pack per day) - Reported 1 [facility] Start: 07-15-2023 Alcohol intake Current drinker of alcohol (finding) [facility] Start: 06-24-2023 Alcohol Comment caffeine: 3-4 cups per day [facility] Start: 1975 Sex Assigned At Female [facility] Start: 07-14-2023 Gender identity Identifies as female gender (finding) [facility] Start: 07-14-2023 Sexual orientation Heterosexual (finding) [facility] Functional Status Date Assessment Result Facility 04-25-2023 Functional Status N/A [facility] History of Present illness Narrative 07-15-2023 Thelma Huerta LPN - 07/15/2023 1:10 PM EST Note Date & Type Note Facility 07-15-2023 History of Presen t illness Narrative Reason for Appointment: Patient ID: Deshaun Cronin is a 47 y.o. female who presents for Breast Mass (Left breast lump) Patient presents today for Consult appointment. Current Medications: has a current medication list which includes the following prescription(s): levetiracetam. Medical History: Active Ambulatory Problems Diagnosis Date Noted No Active Ambulatory Problems Resolved Ambulatory Problems Diagnosis Date Noted No Resolved Ambulatory Problems Past Medical History: Diagnosis Date Vasovagal syncope Family History Problem Relation Name Age of Onset Stroke Maternal Grandmother ALS Maternal Grandfather Heart disease Maternal Grandfather Stroke Maternal Grandfather Breast cancer Paternal Grandmother Multiple sclerosis Paternal Grandfather Social History Tobacco Use Smoking status: Every Day Packs/day: 1 Types: Cigarettes Smokeless tobacco: Not on file Substance Use Topics Alcohol use: Yes Comment: caffeine: 3-4 cups per day Drug use: Not on file Past Surgical History: Procedure Laterality Date SECTION, LOW TRANSVERSE 1997, 2011 HYSTERECTOMY MR ANGIOGRAM HEAD WO IV CONTRAST 12/31/2019 MR ANGIOGRAM HEAD WO IV CONTRAST 12/31/2019 ULTRASOUND : BIOPSY BREAST RIGHT Allergies Allergen Reactions Octacosanol Unknown Review of Systems: Review of Systems Constitutional: Negative. HENT: Negative. Eyes: Negative. Breasts: Positive for breast mass. Respiratory: Negative. Cardiovascular: Negative. Gastrointestinal: Negative. Genitourinary: Negative. Musculoskeletal: Negative. Skin: Negative. Neurological: Negative. All other systems reviewed and are negative. Hematological: Negative. Endocrine: Negative. Allergic/Immunologic: Negative. Objective Physical Exam Constitutional: Appearance: Normal appearance. She is well-developed. Genitourinary: Vulva normal. Genitourinary Comments: Left breast lump Breasts: Breasts are soft. Right: Normal. Cardiovascular: Rate and Rhythm: Normal rate and regular rhythm. Pulmonary: Effort: Pulmonary effort is normal. Breath sounds: Normal breath sounds. Abdominal: General: Bowel sounds are normal. There is no distension. Palpations: Abdomen is soft. Tenderness: There is no abdominal tenderness. There is no guarding or rebound. Musculoskeletal: General: No swelling. Normal range of motion. Right lower leg: No edema. Left lower leg: No edema. Neurological: Mental Status: She is alert and oriented to person, place, and time. Skin: General: Skin is warm and dry. Psychiatric: Mood and Affect: Mood normal. Behavior: Behavior normal. Vitals and nursing note reviewed. Exam conducted with a medical chemist present. Vitals: Estimated body mass index is 32.52 kg/m as calculated from the following: Height as of 04/15/18: 5' 2 . Weight as of this encounter: 177 lb 12.8 oz. BP: 122/84 No LMP recorded. Patient has had a hysterectomy. Assessment/Plan Encounter Diagnosis Name Primary? Mass of left breast, unspecified quadrant Breast exam performed. Pt has a 8cm lump on left breast pt given diagnostic mammogram order to have obtained. Pt to be referred to Dr Uribe for evaluation. Pt to have mammogram tomorrow. Documented by Thelma Huerta LPN on behalf of: Jose Alaniz DO documented in this encounter [facility] Evaluation + Plan note Radiology Note Date & Type Note Facility Evaluation + Plan note Future Appointments Appointment Date:05/16/2022 03:00:00 PM Scheduled Provider: Location:[facility] Appointment Type:MA Screen (FT) Future Scheduled TestsMA Mamm Screen w/CAD if perf and 3D Jeromy 05/16/22 [facility] Evaluation + Plan note Radiology Note Date & Type Note Facility Evaluation + Plan note Future Appointments Appointment Date:05/23/2022 02:00:00 PM Scheduled Provider: [facility] App[facility] Type:US Breast (FT) Future Scheduled TestsUS Breast Unilateral Lt Complete 05/23/22 [facility] Evaluation + Plan note Note Date & Type Note Facility Evaluation + Plan note Future Appointments Appointment Date:04/25/2023 10:00:00 AM Scheduled Provider:Ervin BALES, Guillermo Cloud Location:[facility] Appointment Type:[address] Evaluation note Note Date & Type Note Facility Evaluation note Diagnosis Mass of left breast, unspecified quadrant documented in this encounter [facility] Hospital course Narrative Note Date & Type Note Facility Hospital course Narrative No data available for this section [facility] [facility] Hospital Discharge instructions Note Date & Type Note Facility Hospital Discharge instructions No data available for this section [facility] Progress note Note Date & Type Note Facility Progress note No data available for this section [facility] Summary Purpose Family History No Family History Records FoundNo Family History Records FoundNo Family History Records FoundNo Family History Records Found No data available for this section No data available for this section No Family History Records FoundNo Family History Records Found Advance Directives No Advanced Directives Records FoundNo Advanced Directives Records FoundNo Advanced Directives Records FoundNo Advanced Directives Records FoundNo Advanced Directives Records FoundNo Advanced Directives Records Found Additional Source Comments INFORMATION SOURCE (unrecogn ized section and content) DATE CREATED AUTHOR 12/05/2018 [facility] DATE CREATED AUTHOR AUTHOR'S ORGANIZ ATION 12/30/2019 [facility] DATE CREATED AUTHOR AUTHOR'S ORGANIZ ATION 01/02/2020 [facility] DATE CREATED AUTHOR AUTHOR'S ORGANIZ ATION 07/19/2021 [facility] DATE CREATED AUTHOR AUTHOR'S ORGANIZ ATION 05/03/2023 [facility] DATE CREATED AUTHOR AUTHOR'S ORGANIZ ATION 07/16/2023 [facility] Specialists EPIC Patient Care team informatio n (unrecognized section and content) [employer] Relationship Specialty Start Date End Date Gareth Pinzon [address] [place] [address] PCP - General 07/15/23 Reason for Visit (unrecogniz ed section and content) Reason Comments Breast Mass Left breast lump FOR RECORDS PERTAINING TO PATIENTS WHO ARE OR HAVE BEEN ENROLLED IN A CHEMICAL DEPENDENCY/SUBSTANCEABUSE PROGRAM, SOME INFORMATION MAY BE OMITTED. This clinical summary was aggregated from multiple sources. Caution should be exercised in using it in the provision of clinical care. This summary normalizes information from multiple sources, and as a consequence, information in this document may materially change the coding, format and clinical context of patient data. In addition, data may be omitted in some cases. CLINICAL DECISIONS SHOULD BE BASED ON THE PRIMARY CLINICAL RECORDS. [employer] provides no warranty or guarantee of the accuracy or completeness of information in this document.
[2023-07-29] MEDS: LIDOCAINE HCL 10 ML, SODIUM BICARBONATE 1 MEQ INJ (11:15)
--- NOTE | 2023-07-29 11:33 | SUR.PREOP ---
07/24/23 Pt instructed on procedure, date, time, and prep.
== END 2023-07-29 11:15 | disposition home or self-care (01) ==
LOC: US 10:01
PROVIDERS: Radiology Diagnostic Radiology; Visit Provider Obstetrics & Gynecology
DX: N64.89 Other specified disorders of breast (principal)
CPT/HCPCS: 10005; 88112; 88305

== ENCOUNTER 2024-01-22 09:57 | Outpatient (OUT) | payer OTHER, SELFPAY ==
--- NOTE | 2024-01-22 09:59 | MM_ITS ---
Patient Name: THADDEUS CRONIN MR#: [id number] : 1975 Exam Date: 01/22/2024 Ordering Doctor: DR Deepak Alaniz . RADIOLOGY REPORT PROCEDURE: MM TOMOSYNTHESIS DIAGNOSTIC LT, 01/22/2024, 10:00 US BREAST LT LIMITED, 01/22/2024, 10:29 COMPARISON: US BREAST CYST ASP LT, 07/29/2023. MM DIAGNOSTIC MAMMO BI, 07/16/2023. MM TOMOSYNTHESIS SCREENING BI, 04/17/2023. MM TOMOSYNTHESIS SCREENING BI, 05/16/2022. INDICATIONS: Mass OF Left Breast Calculator Name NCI Breast Cancer Risk Assessment Tool 5 Year Breast Cancer Risk 1.60% Lifetime Breast Cancer Risk 12.50% Personal Breast Cancer No Personal Ovarian Cancer No Treatments None Family Cancers Grandmother-maternal with breast cancer at age 52. LOCATION: [facility] BREAST COMPOSITION: The breasts are extremely dense, which lowers the sensitivity of mammography. FINDINGS: DIAGNOSTIC CATEGORY 2--BENIGN FINDING: LEFT BREAST: Stable benign-appearing calcifications seen on mammography and during ultrasound evaluation. Clearing of previously seen large cyst. An 8 mm benign-appearing cyst is noted within the mid breast 1 o'clock position. Annual screening mammography is recommended. RECOMMENDATIONS: ROUTINE MAMMOGRAM AND CLINICAL EVALUATION IN 12 MONTHS. Active recommendations from prior exams: ROUTINE MAMMOGRAM AND CLINICAL EVALUATION IN [#MONTHS] MONTHS. Due on 07/16/2024. PLEASE NOTE: A NORMAL MAMMOGRAM DOES NOT EXCLUDE THE POSSIBILITY OF BREAST CANCER. A CLINICALLY SUSPICIOUS PALPABLE LUMP SHOULD BE BIOPSIED. Dictated by: Reagan Ryan M.D. on 01/22/2024 at 12:18 Approved by: Reagan Ryan M.D. on 01/22/2024 at 12:23
--- OUTSIDE RECORDS SUMMARY | 2024-01-22 10:01 | XMS_ITS | CCD ---
Author Organization [facility] Care Team Providers Care Copper Plater Name Role Phone KEVIN VELÁZQUEZ Attending Unavailable KEVIN VELÁZQUEZ Referring Unavailable KEVIN VELÁZQUEZ Referring Unavailable ANNA GREEN Attending Unavailable KEVIN VELÁZQUEZ Referring Unavailable John FENTON Attending Unavailable NORMA, ANNA Almodovar Referring Unavailable ANNA GREEN Attending Unavailable SELF, SELF Referring Unavailable SUKUMAR BARNARD Attending Unavailable KEVIN VELÁZQUEZ Attending Unavailable GARETH PINZON Referring Unavailable Doreen GARSIA Primary Care Physician [phone] GARETH PINZON Primary Care Physician Guillermo Mueller Attending Unavailable Guillermo Mueller Attending Unavailable Oneida Bahena Referring Unavailable JosefOneida Referring Unavailable JosefOneida Attending Unavailable Smithesa J Admitting Unavailable Byron, Jalen Hogan Admitting Unavailable Byron, Jalen Hogan Referring Unavailable ByronJalen Attending Unavailable ByronJalen dawson Referring Unavailable ByronJalen Attending Unavailable ByronJalen Admitting Unavailable Byron, Jalen Hogan Admitting Unavailable ByronJalen Attending Unavailable JOSE ALANIZ Attending Unavailable Gareth Pinzon Primary Care Provider MD Reagan Ryan Attending Provider Reagan Ryan Attending Unavailable Reagan Ryan Admitting Unavailable Allergies Allergy Classification Reported Allergen(s) Allergy Type Date of Onset Reaction(s) Facility (5 sources) seasonal allergies 1 Allergy to substance [facility] Comment on above: hayfever (1 source) Seasonal allergy; Translations: [seasonal allergies] Propensity to adverse reactions (disorder) [facility] Repository (1 source) No Known Medication Allergies; Translations: [No Known Medication Allergies] Propensity to adverse reactions (disorder) [facility] Repository NEGATED: Highlighted row has been ruled out! (1 source) Drug allergy [facility] Medications Current Medications Medication Drug Class(es) Dates Sig (Normalized) Sig (Original) Acetaminophen / oxyCODONE (4 sources) Opioid Agonist Start: 03-22-2016 Percocet 325 mg-5 mg Tab 2 tab(s), Oral, q4hr for pain, 20 tab(s), [facility]ill(s) [facility] Start Date: 03/22/16 Status: Ordered azithromycin 250 mg oral tablet (4 sources) Macrolide Antimicrobial Start: 07-18-2016 azithromycin 250 mg Tab 250 mg, Oral, As Directed, # 6 tab(s), Refills(s) 0, [facility] Start Date: 07/18/16 Status: Ordered Codeine [...] Test Name Value Interpretation Reference Range Facility [facility] 07-29-2023 L Specimen: [id number] Received: 07/31/23 Status: SOUT Req Num: [id number] Spec Type: Cytology Subm Dr: Reagan Ryan MD Tissues: A CYST FLUID (LEFT BREAST 1 O'CLOCK CYST) Procedures: HE/2, Gross/Micro L4, Cyto Prepstain, PAPSTN Age/ Patient Sex Location Account Attending Physician Madelaine Croninlene 47/F LABELL [id number] Reagan Ryan MD SPEC NUM: [id number] RECD: 07/31/23 STATUS: SOUT REQ NUM: [id number] WENDY: 07/29/[address]: Reagan Ryan MD ENTERED: 07/31/23 [facility] DR: Jose Alaniz SPEC TYPE: Cytology DEPT: ADAM RICARDOYT ENTERED BY: [id number] RECV BY: [id number] ORDERED: HE/2, Gross/Micro L4, Cyto Prepstain, PAPSTN ORDERED: HE/2, Gross/Micro L4, Cyto Prepstain, PAPSTN Pathological Diagnosis Left breast cyst at 1:00, aspiration cytology: -Negative for malignant cells -A few and mostly are degenerated cells, including occasional foamy histiocytes, occasionally degenerated histiocytes, rare lymphocytes, and also occasional, including occasional slightly degenerated, PMNs, otherwise without malignancy, or any viable epithelial cells identified for assessment -The cell block section also showing occasional degenerated cellular debris, similar to the ThinPrep slide without any other specific diagnostic abnormality identifiable, other than the sampling of the degenerated cyst CPT: 69917, 74409 Gross Description Received in Cytolyt labeled with the patient's name, date of and left breast 1 o'clock cyst per requisition is 15 ml yellow cloudy fixed fluid. 1 Thin Prep slides are prepared. 1 cell blocks are prepared. (CC/nh) Specimen: [id number] Received: 07/31/23 Status: RUDDY Sparks Num: [id number] Spec Type: Cytology Subm Dr: Reagan Ryan MD Tissues: A CYST FLUID (LEFT BREAST 1 O'CLOCK CYST) Procedures: HE/2, Gross/Micro L4, Cyto Prepstain, PAPSTN Patient: Thaddeus Cronin [id number] (Continued) Signed (signature on file) Susan Phillips MD 08/02/232102 [facility] General Surgery Office/Clini c Noteon 05-02-2023 General Surgery Office/Clinic Note Chief Complaint BILLER Left breast lump HPI Staff BILLER Thaddeus kong a 47 y.o. female here [...] with voice recognition artificial intelligence software, specifically GoNabit, AddSearch and or [employer]. Substitutions may have occurred voice recognition and artificial intelligence software. Documentation services were performed after patient or guardian consented to allow Elance to record this visit. RICCI american indian policy specialist and provider reviewed before signing. RICCI: Pablo [employer] Follow-up No qualifying data available Problem List/Past Medical History Ongoing BMI 31.0-31.9,adult Breast pain, left Historical Procedure/Surgical History diagnostic hysteroscopy with endometrial ablation (02/03/2015), section, Endometrial ablation, Tubal ligation. Medic (more content not included)... Normal [facility] Comment on above: Result Comment: Elec tronically Signed By: Ervin BALES, Guillermo Cloud\.br\Date and Time Signed: 05/02/23 11:14 EST\.br\Electronically Co-Signed By: Juliann Steen\.br\Date and Time Co-Signed: 04/25/23 11:38 EST Consent for Treatmenton Consent for Treatment [id number] #1.00TIFF Normal [facility] MA Mamm Diag w/CAD if perf a [...] very important to your health. The current [employer] and National Comprehensive Cancer [...] 2-Benign finding Recommendation: Normal interval follow-up Normal [facility] US Breast Unilateral Lt Comp leteon 04-17-2023 US Breast Unilateral Lt Complete Exam Date/Time: 04/17/2023 13:31 EST Reason for Exam: N64.9 Report PLEASE REFER TO THE MAMMOGRAM REPORT. Ordering Provider: Oneida Bahena FINAL REPORT Dictated: 04/17/2023 2:22 pm Alfa Guevara M.D. Signed (Electronic Signature): 04/17/2023 2:22 pm Signed by: Alfa Guevara M.D. Transcribed by: MIKAYLA Technologist: ISSA Normal [facility] Physician Orderon 04-08-2023 Physician Order [id number]# 1.00TIFF [facility] Physician Referralon 023 Physician Referral [id number] #1.00TIFF Normal [facility] Provider Letteron 04-08-2023 Provider Letter April 08, 2023 THADDEUS CRONIN [address] [place] [id number] : 1975 Dear Ms. Cronin, We have [...] your prompt attention to this matter. Sincerely, [facility] General Surgery [phone] [facility] In office Testingon 08-22-19 23 In office Testing [id number] #1.00CD:127 [facility] Coding Summary.on 05-28-2022 Coding Summary. CD:[id number] Gh0bWw+PGhlYWQ+PE1FV YWhY50kpGIqeG3YQ5iZT N5GPQYLACVIMU3DKM4ld ZW3ZZavQ4SvjwWh BfiwzJZxLA40RIb2MTF7 tStxOGoutH5tqZNwY3j1 QgUmJL36vQ13NYazJZKy FuF7DpTsxdlklRRy M2elHbWugOHiZgf+PHRh YmxlIHdpZHRoPScxMDAl SdDxfQpuRN1kZm0rJGEy LWNvbGxhcHNlOiBj n2gpAAShNQpnSQ7pzMka R0JyqVU4GTRrf2r8Fm72 dHI+DARoAJH9xAsbHYxm u035OlBue7fvBYD5 iJYiMTzsJEM3P82yb6Z7 BVSjWSMfUWV1sGZ3iP4g iRcmbcolU8ItcXOpWtR7 WKZ3fHWgoY6hsFvu wtcncJ9hOxh+X55OYU8G FGRJIE3JCog8N1VjFyfu dHI+ST72GWEuYK39cYGv tQUhu7qnrYb0ZpMv JIErWYL7cWiqBRxrm4Zo CKHaE15enQRnz4M6DKYk hFpciQVkIpKhhPR1eB0f SBzrnvufl6hmtvct Tkyzc3xpyt92hO17W10l BOqfJUEkUMJ0YERaPPIe kBsvur9cuA1fVb6+IDxj x8npr7nigNk2OeKa KODnkcGtiHekGLF1u7Zb Au37Q2SaoCwfs7ShFnn2 qu87lELvm0Y2pLD6JAtc XYIayE3eYXkpOlF5 QCKiAxJttJ74oDJkXXxl Tj9uqWnmfHluQN1yFLPl nzlrXZQppX9nDRIexECx sSwhHT7nYTZhnjnl t297VnPrDWC0ARLnaLIh Y0CqfJ1fZdXgNJIzTNPz F8PbxOXvXHhfS959QCeb TdD1TPJvmuOpN2Nw JYLieXvoNmF0q2S8Ka6E v0UeatykOUA7ONwpFNAh NiGnUuXlMjG1A2EiXdh6 JIBixNbfXS6yR3Oo SOYpvndjjoypiFM1YVHp ECTceX55mZGwUQwuLe6y n4H3j961PAWqBGGjhY54 Yo5baLsoXWMsqAEY bH9yrflui2tqfhhqHoOc IVEbECb7OSy2IJSjoFue OqNjAEW4VaV0ZFK0gHAe dO5vkJojaitfeS9n Oyc+A10snP7vKIC7EQQ9 wruhAHGskgJdYD51ZU51 A5VeObyzlBRwoKS+PGRp rfJgoBclDQ3vGmCl x2xdu4VeRSnwQ6PiIVBd ZEcxWlp4VXCbVRL9qWR4 vE1hATTsJFfup4I3aPC5 W0RhfxDhld7kq5vi LLGyKZfpO45voRLnk8K9 FHIokZJ1XONevYogRqAf rX54Tro+OSDfySiwj3Zw Klyik5wio2hncQb5 IjMwJSIgdmFsaWduPSJ0 g1GmDe38Q72jFJbcXWAs XPHsTUUjTKXznHojgt6v hU1vTm0+PGNvbCB3 dSK6oC6eGCWhXgS8MWei E183CeXxjRSlBiwch4hx d9yfgIi5MlKxJXNsoqEt aRxuQJX1q4RkEr65 E34wUBomIZSeHLReEIDi DCRyeIdubw8tnP0iFp1+ YM3ua7wzul96zA29uWZ+ XNZxPRH7aXkoGHpj BEQnbF1cPFnkDdF0TDRx InOlrP17kYXaURorTs2s pEwchHxvSK3xCROqhsvf p552JqSsd3muKHXq aSUzSYsbGND5S55io0K7 RIFgGDYoIFN0iQV9pG5k bGlnbjogbGVmdDsgdmVy sKqrPCmmCCxwV378 IHRvcDsnPlBhdGllbnQg NrSxHOu5A0MjIdu1OMHn zZhbUZ1uhUWmZIcfEy8w vXufuUphKH9pGOFr omkqw032ZcIll8pvMEDt mOPoXIzpMJC9N87by5R2 YRZmWIDqTQO6tYU6eV3a bGlnbjogbGVmdDsg ykMhaHytWAkeANsoX156 IHRvcDsnPkJpcnRoIERh lML0EH30IM55fVHfn1L5 aUX5B1NlYZWdukaa hhugnKU6XWUwFOZfgT05 Db2ujAzdBp9eJXJtQRV9 ZZLltXWmJ1SuzF5gSbYo OUFxXZVvF5XvpZGf LYcbR303VAxeFuY6KPTz fxSsF2IeMNMckCsxPkG0 q3A9Qt0RT2A3TI69GJ00 gSHrg4B9iHT8D8Md ECMacsykkdfxfAN2XZKc NMHtcW27Ob2rkMkcSe1z QNWbDOJ8IDNzwUFwI7Ex kX3sSbWtTQBkKRGg M7DujGAvJEwlM000SMvl EvJ8SQNmseVaX5YmJYBw aDszXgZ0g9A9Pm1MRLp8 YO18NA83gSSyd0Z1 mVU0I7TwKUJhhtojoyoh jYV2SLKaWBFvnS79Mq6n zEfhOi3cKVKwNMV2TXQa tZDmF7DdsY3iFeUe PGTkINJjM6FlzLCeWVpg I017TJkvTfM5YOIpwrAk H0OkEAHpxMdpWrX9o6U1 Bp1OTUGqDW42FHU4 sQO8SU02AT44N8YcJkrk dGFibGU+PHRhYmxlIHdp ZHRoPScxMDAlJyBzdHls BC2eAk7cRGRdAMEk nBctdAZoChCae0pqVZHn PMdtHO3tkZtyH6ClhDA7 ELInk2t4Gu60W99iB0Hf dXA+NKHdqJJ3eTM1 wA5zBkIfCpN8MBddX288 OeExsUPkTmykk7llv1ec jEu7DtF5QAHqmyGshQmw MUN1z5XtBp36J19s IHdpZHRoPSIxNSUiIHZh aRwiuf0rfO6kPv2+PGNv bFC2wEE1iQ5xAuDfPrY4 SYwfA159HdSfkEFv Yqhch8lcl0icoXq2ByOf WTKobkTiwPpzKBD8x6Uy Uh11D8RsjYuay8ArPjl4 cn93fCMmc7V5yFR7 B9ScNRMhxofumYInqFzq IX2uNLDyqjufTYPbkV0g GANdG6d3RfTyAiB0QBdp B4CrakV4LBZmnZPi NBggDMA5X72jv7K2ZDAi GGMmABM9sPA8eU0mxPuy bjogbGVmdDsgdmVydGlj ILmlJDagC696TSYl qNxmWIBebY7rJIDwqEAb gQzvQN1hRXYnaaoyOxZW KssWORGkCOWSSPAOOI3W HXD6Y6SlOtk3BFVh zEdbKD8upCHhQWpzJg4d mKxxmNbpDM2pGPIiiham IGCikK2pMQWccSYplCht CQ4zNNLcqdgca219 IvXvWTM2QIZwzRNhC3Qx yX1gGdHbHMGjMVHjA6Ka qTRmLDzoD451ZNddSfR6 ESHtmbRrS7BxDDId mWtqPfC7f1N4Ch9pBg0m MQ4uHDv8ES61IC33qBWm f5P3jFF3T0CzVRAfruoq pfxiaDE8DQUpNQHm kN45zWFxDPcxHc6nh1T0 x574OFRzAEVzcT56Di6g cRnkHYEmbTVLiK8uvttt s1ocpeokYgJmPPFq VYg3PEn1ABPzfSvnCuKx SLC3MfR1YXP4cAFqeJ2d jVooslfsdI0rAby+NDYg TUPyfxE7I9NhKok8 TXTwdMvdVY5pjCBzMKvc Tu5icMwyeDgyED1oAMUh fcvyTLTayH7gJRDavPGr pMseTL9sLUVgnnut j718CkBsELI2YFRxsTIl H8EmeD1yCtVoBZXfQKHb L3PneSPtNQenP827REsj JwS0ZOArenJfH9Cs BQLrdRhgDbS9g3V4Kn3W ZV2bfRC7D7FcOvy3BHNw kHmbER6ihCHyPIlyPf7u yYcwoPzuYZ2cWCJz ficgITBctD4yPWYukLQl oNvhTF9tWTJmflfik228 ShJwOCP6XHVkpMUkF1Hd pQ7iEzToHDNlIYEk C8CheYXjHHbkS640LRjc VaK4IPKqeoSfM7ChUGUd kHufOiG6d9Q2Ql9YbCXl ZUGpVD99XI17WS40 G6XjMfkufEPbdJS+PHRh YmxlIHdpZHRoPScxMDAl NiGmzLqiFS8oUo0oDPHr LWNvbGxhcHNlOiBj l1hrEJVrNHkvTL1zzIdf C7OqhVO4WZPsn9j2Pj67 Q09vK3KnwHT+PGNvbCB3 rSV6cW6mZvQrKyD9 WXhpS005WuTmwHVtWbsh l3cll9cpbUe9KaHeABFk flZqtAoxBJR9p4SdMa36 K94xSEdeTLGiRPBy ZRXxMKMcrKpygo3iiG8s Ii8+PWKtnLG9rEY4nN0t MrPfGsZ5SOjqY021AnRr aOPfHcnyJ61gJ3Er dXA+YGVsEkp6EDHudTcf NC0czFNeEAvbLm2fSDS1 FaHsWmCoUXstZ2QpJJYf eouagruavSM3GFOl RRRgzN36Is5yuRnyUy5s AQOtFXE7UPJtjCTvI0Oi bL7kKuKaXKZsHFGdL8Le tHCdNPnfW292KHge KhB2HCIbkyRmW8LoNCGa dEarDvJ1z7S8Pm7PuVdy iIDqWE7rInEfZPq3L0Lh Noi7SODrpInzNG1h cFZpOCvrHr4dvSybcEpr XZ2oJIZszunod618FwWu t3hfESTicJXjJYieZIV2 K26sl7M1QOWaHMXo MJP4lID9dO2qiFdmexdb bGVmdDsgdmVydGljYWwt DSksW835DWWqrEzaMoNZ Xeg4X8CsHzc8NHAd rWhjNS6grDBcKOebEp5d bAqefEibYA5cGCHcyblp z189MkInf8hyORGseVKr JYjoAJS6F24ou5K2 OSIrAWLeWOO0bEE1bV0z bGlnbjogbGVmdDsgdmVy sKzuKZwaHAreU701KYBs wXwuSz2LIqq3P5Sz Xfw6VUWayXwxMW2sfKQd HQmpKd7osRnslOawWO1i BMPneimvd150YiVls5wj IDEwcHQgVGltZXM7 W02ye5N5IDWpWHFgSSU9 gIP5aC1pcGlgrkqrtOGd dDsgdmVydGljYWwtYWxp K806GUGtfJxvUfZv eWVyOjwvdGQ+MP76wn34 G5IwYoshRxb9DNSrIRL2 mTB4bA1vMNOdFHjuj1Q3 fGG7T3IvpvWcit2n b2xs (more content not included)... Normal [facility] Coding Summary.on 05-26-2022 Coding Summary. CD:[id number] Gh0bWw+PGhlYWQ+PE1FV ZXxU94dsINilF5RB2nUM T9YTOWDIXCHVP2MXB0ja DF0TRwpX3VbacUy BfgpsVUeYS95AWz5SZG7 mFkzGUxovV4jmEIkH9g9 NcQmFO59fE01LXivVNJa HoJ2MgSrgbnkkJYp K3iuRyWiaWSnBuc+PHRh YmxlIHdpZHRoPScxMDAl LaMsgCsjAF2pCk5bDLZq LWNvbGxhcHNlOiBj y4elVDYcGEfrMH4yuBfd C8DxyMG9CUMys3v0Mk55 dHI+JZAaMDY2oCxnCMlf z322ZzMrg0kaSYY8 fSQrMFviRAO1U17gl9Q3 RMIrMCGiKXU6iZD6iH0o vHdettsxA2MdkHSyLhJ9 LMW1bBTaoO0mlJqz uxpfxF7uNpe+R99YIU5M LRKVRI7EDkq9D5QyRofl dHI+ME93RMUpHF06bPHy dCUcd2opxSc8DcNo YTAnMXK3pZbqKBjrk0Bm QYUoV65xbIJso6G5PGHy yPwvrVHdFvCznUK2eA2m AZhbscoup6cbxaca Peuvx7tdoa03aB55K02f JZavSYDtIEI6CIHxEJVs rZlguz4xmU7tMn2+IDxj r7lnk7ifkCk0XxQd TYGpnpQhsPdlLLZ9g2Zt Oo93D0WkeVoxl7BqUfl0 mh93hZVaj0U4cKI4PRwh OEZlwY0mEPbiTqD5 SQUaQnGaqC10fSWzURqi Ez0rfNmvjSynDH7kWVXo pvhxALSxxY6qVXVgiJOt xHpzXR3sOVBtrhiw h001WpMiBAP7DYHdvPVa Z2OolQ1aGmQiSCMiUEJu D0XidGGeTAcmS470KHhw TdB0QBOwdiAdA1Va LISwsLmnKfL3g9N0Qd5P h4NfiourPZB9YUlsVECb TyY1OkVgObR4T6PsBfa2 ANYnyEmlPL8aJ5Dv YIHyqturtfyezMW4ZMBu NMFjxI72wXOwOSdzBb9r w9R6c707PRIqOKJrhF70 Po7yyKywFAYorTFD zG9utzdwv0rzyxrwSxOd RKIsZOc2LYp6AGZmwTkl JxMhQZD2LgK3FKI1qJIj nF5rqIwtrsgmbS1u Oyc+K05ykV1aSOA4LWD4 rnrgYWHmdqUsQB43XV43 H2EeQlaijALsdYC+PGRp fkEvfKblEV4rEvUn y6blh8BtDBpcW3ZsWIJt JMafInr4GRDhWWQ9zJZ8 uN8tBUCfITvjd9L0rSS6 L3XyszGxlb7py3sa UOXxSLxwS75dfIMwn0N8 SNEtlZN3SFJusCuxHeEw yE10Hqm+GNHiwBnbr3Iy Ootsf8zay1gldXf0 IjMwJSIgdmFsaWduPSJ0 o0FcHe80W14eOFgmMDHa IGWqGKKkPDAmlPpegb9t vI0tWd0+PGNvbCB3 sYD7rL1fZSMzTeC5ZBmk Z799WfStqZMuJvmzz1on l9qfgLv4RpZxGPDqvqQs oVqaUIZ3v8AeAr08 Z35lPJylIRHlYEGpLKWj XEVtjMhwrk9uzL4eCw4+ KX4in3gbyr56sN02qVQ+ JVHuPMB1hDpxSBlq YBDsjO1yYNonZoW5OAOj JuRdwX65rYOfNQnmGh7i jYrcaWvyAA1dZDXxnkbl m346JhCfa6fuCVPg dJLeHBpeWEX0S37ni7G7 MSCdUZAiHRM6iKS7rY7p bGlnbjogbGVmdDsgdmVy eOdsEUqsTGsoE326 IHRvcDsnPlBhdGllbnQg QvMxIRq8M8WdMip5MPAj gTwkPO0vlCHcCRxiFa9d mUzljAvgZZ3qDMXa lduoq833XpWrz2kgDIEd xDPxFAozUTE9T45lp1Z4 UHQlGMUiDDD9sPZ1cN0d bGlnbjogbGVmdDsg ueDbhGysEIxpOHveU944 IHRvcDsnPkJpcnRoIERh gTS8LU31MP61qQPre6X0 yYO0S8BzYJOwegey fmqsbUO4SXWtMEDmyL66 Sx4obDmjJh2rPXBdDWL2 EASkuXUqE3EuwY0bLvFm LIUmATCdD5AmcKXl NQfkI467KSisOmY3AIAj qnQlF3HuAOJyqKarRpV1 u2W9Pk0BW2L0GQ99GT85 iKEml3W0zTW4A2Gf ZWWvtiohfjeygUJ1ZFTu EKZtzC02Si7vyLoeAe9k PJMwZHL9RHFhxFQwY4Df kT2iKuMaKXRgAZLv E9DiuWEiDQvwS691NOux KfS7TXRpzdRsW7QdQIVn vFvfZoV8n3Q0Ab5HAAv7 PD74FI87rSKfb3O8 iYO5Z4FbIGQkjozlexjv cTR5CSLyDDNbzG87Um9u bXxwCz6oZWXnVJH9LOUk mAFjV4ZfpQ8uUqZb RLJkWPEwY8ZqcTWpUBrz V834UZvxStX2ZUTkbwZy V1RkHJOsxCsjQwY4z6O9 Ch0HIJRvGA29LTR0 mIN5BQ89FR82X6QjSgtn dGFibGU+PHRhYmxlIHdp ZHRoPScxMDAlJyBzdHls TY3cEh9gEEJpJJEl bBdovNPbUgFcp3vgEAZm MZkfQN1yqTbfC5NkbSF8 ZJCsy0u4Kh38L75yX6Tc dXA+NGZcsIR7aEK6 rF0mPnMtYkO9NVpiD907 QyNtbAEvVnzqh1mht7co yYr1CyG0WYGxukQgyAiz SFL3e6XjOz73P56y IHdpZHRoPSIxNSUiIHZh cKxeiy4miV0eFw1+PGNv cTN3nMR5lK8uEdHvUwC6 ZHagF133CyKyaOJf Jwmip6uvu7eakPa8ZwLv BXXemzEqcIjyKEP9j9Gu Cs88S3XanGscz3OvAwd6 ht38rXNxs9V0iXX3 N6XeLSMrxwbseBNnsUft OF5zIZPyagvhCYKglX6k YAJcY1d3BrFuGxM6HKvf A3JhmyE5STIutKRc XBfnUDS7L16id2I5ZDFy IHMhMWD7eXM5qH9qyIil bjogbGVmdDsgdmVydGlj UCyhMEygS819UMXw uTwyBPEusR0gLZQehMDg kThxGV2uQEFhwajwAaGP TtzFRQUiDUVBRIPSAM9U AAG0M2NtXug9IZRu dBfcKU3gsCFaPQfnBh8x mRasuEysBZ8tEWPjxsfp IDHttN8yQDCmgTJzeRsq SM7kJADjmgwbf553 AwQmUBU0FWSudNZyK2Dy wA7nKsOgETQoHOQzO5Xr mXWfKXvqJ504FLdzNqU0 RNKpwsFkK0NvFFAn pCxbSpU5l1Y1Td8cEz2y IU3zLVc5VY88PD33dMOs b2V3sTM1Q1YyYSFpmmgi eblouCA2LDPjTMBq uT08wXOgFHmkJz3et7I0 g157VZAfANMjsE33Pr0i hNfkKKDlqZAXzL4weqvy q6rxrrofRzUyHORg XHf0GNm7OQNsxPaaLuMs AAY7DaN8BVS4oQTiyV5h xEcmpbrrdA5xPug+NDYg IKGuxbB7V1KeAgz5 WFKomQuzKD2vlVCoPGge Hl9wuSpavUkjEQ9nZJBu hcsxYCLdmW7fJNAexUZn rApmFW2cOLOkkbuw i513UrNwMWH3CLVydSTl T2VlmC0cTeKoVYDuDVWv L8KciNYeSEdiM658WUtt WgT3OQAvjrIfT9Pu TCPhwVxqMoE8i1U3Rf9L OB3toGM3J4LiTaz7BZTt jWnzIK8sfBLrLKxfTe0r qJgylIooPB4vNAIb kajcJEHltN9kIQGdfUVm cZnhNK4aTTOzxohdv376 BpXxZIG6XGBnqTDlK6Yp qP3lFvFiTPObHZYy A2LmpJXlDAchZ632JEat PqP5OIDdsaEyT5OrBJZx tQgjQxO4s5G3Eu5XqFUx HHBgFN65MJ56GG82 C1IzBjfrxAMrjEL+PHRh YmxlIHdpZHRoPScxMDAl WbPudGaaBS2gYf3zDSUh LWNvbGxhcHNlOiBj x5feGMVgHVjmMO8uoMof F7DynJF2ZIWar0m8Xh76 S35mC0KvoUI+PGNvbCB3 tVZ8vY8rAsCkRkF9 OLwdM513IlPnmZOpJgcl x1pjf5gfxRg3VoQwKKRq xtIxdNpcSTR8k9BwLy37 A19eZUllMZVeUMNa ERQsBFJhfBnqyu9scW3n Ii8+BDExeOQ6cAC5qN1k AxKgFwG8RGozN787WnGo sMPhIndhJ64sY8Ys dXA+PQKbUcf4PGFvoEgp MZ0taLTkZCaqPb9aBRX1 CsXwQnQnFOfnC6RsMNMc agnkxntatTA8YVAx JPKsiW37Um7dgNrzHz1s URWvWVK2MYHtgHDjQ2Zl sV6uCmEfZGTpIAVoN6Sr aCZjKFtrK327PDjr QcU2UKGvgaImY0IoHJKz hZwdFkD5d5K5Dg3ImCql vYLqTM7tXcThDJv0J2Xd Nqn4KDEhsBjmHH4o lKNmAZuvNe3tkAqukZsa GA3gUYNpjbrmd271FxVq e6hlNRZsrHWrYKybKKY8 Z97yz5E9HQMoTKVn IOL5qYX7iT7oiUhhwqpn bGVmdDsgdmVydGljYWwt AGaxO746AAIrcNweVaWI Qwu0U3PaZni1CCSi kCnmBZ3fiDQfHMtrLp0j bRllbVzfQZ1zPUDkdtiz s132NaCpb2hrZKUjhMXj FMlcIEK5D90za0Y9 ZGGvKMHjAXN9sMH2iG6p bGlnbjogbGVmdDsgdmVy qXacMEjbOUglQ701TJJf uTcdDr0MBta7H9Ii Kho6BEFoeRnpKM4lpAFs WGoiCj8rbFtdeQrlHJ8j LWCvqhauy300SzAcp5el IDEwcHQgVGltZXM7 F04yj1O2VHTfXVAzOHT1 lGT9hQ5sjPixzdnsbPCx dDsgdmVydGljYWwtYWxp P658FVQybQiySvLi eWVyOjwvdGQ+ZA51ef49 I0AaOmmfHyy5HKQlCZI4 sNW8qV0hQSMpGCvir1H4 tYZ2H4DjdtAfia8d b2xs (more content not included)... Normal [facility] Consent for Treatmenton 05-09 Consent for Treatment [id number] #1.00CD:127 Normal [facility] US Breast Unilateral Lt Comp leteon 05-23-2022 [...] Alfa Guevara M.D. Transcribed by: MIKAYLA Technologist: DC, Normal [facility] Auto Diffon 05-22-2022 Basophils/100 WBC (Bld) 0.9 % Normal 0.0-2.0 [facility] Comment on above: Order Comment: Order Added by Discern Expert. Performed By: #### 2 [id number], [id number], [id number] ####[address] [address] Basophils/Leukocytes Auto (Bld) [Pure # fraction] 0.1 E9/L Normal 0.0-0.2 [facility] Comment on above: Order Comment: Order Added by Discern Expert. Performed By: #### 2 [id number], [id number], [id number] ####[address] [address] Eosinophils/100 WBC (Bld) 1.7 % Normal 0.0-8.0 [facility] Comment on above: Order Comment: Order Added by Discern Expert. Performed By: #### 2 274821, [id number], [id number] ####[address] [address] Eosinophils/Leukocyte s Auto (Bld) [Pure # fraction] 0.1 E9/L Normal 0.0-0.5 [facility] Comment on above: Order Comment: Order Added by Discern Expert. Performed By: #### 2 223559, [id number], [id number] ####[address] [address] Lymphocytes/100 WBC (Bld) 29.7 % Normal 14.0-50.0 [facility] Comment on above: Order Comment: Order Added by Discern Expert. Performed By: #### 2 126137, [id number], [id number] ####[address] [address] Lymphocytes/Leukocyte s Auto (Bld) [Pure # fraction] 2.4 E9/L Normal 1.0-4.0 [facility] Comment on above: Order Comment: Order Added by Discern Expert. Performed By: #### 2 050466, [id number], [id number] ####[address] [address] Monocytes/100 WBC (Bld) 7.7 % Normal 4.0-14.0 [facility] Comment on above: Order Comment: Order Added by Discern Expert. Performed By: #### 2 050500, 0992534, [id number] ####[address] [address] Monocytes/Leukocytes Auto (Bld) [Pure # fraction] 0.6 E9/L Normal 0.2-1.0 [facility] Comment on above: Order Comment: Order Added by Discern Expert. Performed By: #### 2 212399, [id number], 8148131 ####[address] [address] Neutrophils/100 WBC (Bld) 60.0 % Normal 36.0-75.0 [facility] Comment on above: Order Comment: Order Added by Discern Expert. Performed By: #### 2 462799, 9859520, 7154934 ####[address] [address] Neutrophils/Leukocyte s Auto (Bld) [Pure # fraction] 4.8 E9/L Normal 2.0-7.5 [facility] Comment on above: Order Comment: Order Added by Discern Expert. Performed By: #### 2 620470, [id number], [id number] ####[address] [address] CBC w/ Auto Diffon 2 Erythrocyte distribution width (RBC) [Ratio] 13.2 % Normal 10.9-14.2 [facility] Comment on above: Performed By: #### 2 973255, 6109623, 6777972 ####[address] [address] Hematocrit (Bld) [Volume fraction] 44.5 % Normal 34.0-46.0 [facility] Comment on above: Performed By: #### 2 378753, 9620065, 9187875 ####[address] [address] Hemoglobin (Bld) [Mass/Vol] 14.5 g/dL Normal 12.0-16.0 [facility] Comment on above: Performed By: #### 2 692744, 9870776, 7674607 ####[address] [address] MCH (RBC) [Entitic mass] 29.1 pg Normal 27.0-34.0 [facility] Comment on above: Performed By: #### 2 931956, 4292042, 8181755 ####[address] [address] MCHC (RBC) [Mass/Vol] 32.5 g/dL Normal 31.4-36.0 [facility] Comment on above: Performed By: #### 2 314201, 1443968, 0208342 ####[address] [address] MCV (RBC) [Entitic vol] 89.4 fL Normal 80.0-100.0 [facility] Comment on above: Performed By: #### 2 322624, 6898962, 9342083 ####[address] [address] Platelet mean volume (Bld) [Entitic vol] 9.9 fL Normal 6.4-10.8 [facility] Comment on above: Performed By: #### 2 713371, 5471203, 4560329 ####[address] [address] Platelets (Bld) [#/Vol] 242.0 E9/L Normal 150.0-500.0 [facility] Comment on above: Performed By: #### 2 355581, 3620855, 3449382 ####[address] [address] RBC (Bld) [#/Vol] 5.0 E12/L Normal 4.3-5.9 [facility] Comment on above: Performed By: #### 2 291991, 1439590, 0593983 ####[facility] [id number] [place] [address] WBC corrected for nucl RBC Auto (Bld) [#/Vol] 8.0 E9/L Normal 4.0-11.0 [facility] Comment on above: Performed By: #### 2 069128, 7211914, [id number] ####[facility] [id number] [place] [address] CHEMISTRYOrdered By: SYSTEM SYSTEM on 05-22-2022 Cholesterol [...] Treatmenton 05-09 Consent for Treatment [id number] #1.00CD:127 Normal [facility] HEMATOLOGYOrdered By: SYSTEM SYSTEM on 05-22-2022 Basophils/100 [...] 7.7 % Normal 4.0 - 14.0 % [facility] Monocytes/Leukocytes Auto (Bld) [Pure # fraction] 0.6 E9/L Normal 0.2 - 1.0 E9/L [facility] Neutrophils/100 WBC (Bld) 60.0 % Normal 36.0 - 75.0 % [facility] Neutrophils/Leukocyte s Auto (Bld) [Pure # fraction] 4.8 E9/L Normal 2.0 - 7.5 E9/L [facility] HEMATOLOGYOrdered By: Lanette Miller on 05-22-2022 Erythrocyte distribution width (RBC) [Ratio] 13.2 % Normal 10.9 - 14.2 % [facility] Hematocrit (Bld) [Volume fraction] 44.5 % Normal 34.0 - 46.0 % [facility] Hemoglobin (Bld) [Mass/Vol] 14.5 g/dL Normal 12.0 - 16.0 gm/dL [facility] MCH (RBC) [Entitic mass] 29.1 pg Normal 27.0 - 34.0 pg [facility] MCHC (RBC) [Mass/Vol] 32.5 g/dL Normal 31.4 - 36.0 gm/dL [facility] MCV (RBC) [Entitic vol] 89.4 fL Normal 80.0 - 100.0 fL [facility] Platelet mean volume (Bld) [Entitic vol] 9.9 fL Normal 6.4 - 10.8 fL [facility] Platelets (Bld) [#/Vol] 242.0 E9/L Normal 150.0 - 500.0 E9/L [facility] RBC (Bld) [#/Vol] 5.0 E12/L Normal 4.3 - 5.9 E12/L [facility] WBC corrected for nucl RBC Auto (Bld) [#/Vol] 8.0 E9/L Normal 4.0 - 11.0 E9/L [facility] Lipid Panelon 05-22-2022 Cholesterol [Mass/Vol] 232 mg/dL High 120-200 [facility] Comment on above: Performed By: #### 2 [id number], [id number], [id number] ####[facility] [id number] [place] [address] Cholesterol in HDL [Mass/Vol] 52 mg/dL Invalid Interpretation Code [facility] Comment on above: Result Comment: HDL > or equal to 60 mg/dL: Low cardiovascular risk HDL < 40 mg/dL : High cardiovascular risk Performed By: #### 2 [id number], [id number], [id number] ####[facility] [address] [place] [place] [address] Cholesterol in LDL [Mass/Vol] 152 mg/dL High <=129 [facility] Comment on above: Performed By: #### 2 [id number], [id number] ####[facility] [address] [place] [place] [address] Cholesterol in VLDL [Mass/Vol] 21 mg/dL Normal 7-40 [facility] Comment on above: Performed By: #### 2 [id number], [id number], [id number] ####[facility] [address] [place] [address] Triglyceride [Mass/Vol] 106 mg/dL Normal <=149 [facility] Comment on above: Performed By: #### 2 [id number], [id number], [id number] ####[facility] [address] [place] [address] Physician Orderon 05-22-2022 Physician Order [id number] 0#1.00CD:127 Normal [facility] Coding Summary.on 05-21-2022 Coding Summary. CD:[id number]:[id number] Gh0bWw+PGhlYWQ+PE1FV OEdE27rrGGmbC7EK3iYY P9RFKLYWDIMOY1WLV5pp HQ3DMzqJ2YoxrUn RoawpVEwQD12RBm6OLO2 iBhsIKzgyA8pcFDkN5m1 IhErFS87vP29XDxaGSMl IjM2DgMlqyjrjQLf E2gpUsDqjYMsBtb+PHRh YmxlIHdpZHRoPScxMDAl PwBesWhsSC2nPa0bLXJm LWNvbGxhcHNlOiBj m8vuGHTdGQbnXL6qgGjl J6UpaPC2BMQwu4s5Pb42 dHI+GFKrJEB2vXznVAdj l084YnKcb2boUKW8 hEOnQHfjBBX2P49tv7R7 SIZfEWDxAXW1yBB1yO0q xTadwnabM5JhcGLeSwU4 FEI3fPNqoM5nqDni iwaarM1cBbs+G91SYN5N HQWXYW3TEvb7R7XwDcxl dHI+GU32XTPbFF34nKTy hGPvn7xjnMe0FxOf DWAdYZG6zRhjTWkfx1Nn OKBjH08tuMLoi4P4AHIn jGlchSXaTnXwuRS3lR4b KFnvaoocw6dbcjnc Grfii1rgce18vR47I56k CAdfAIPiKAG6MIAkSCWo fOmozw0dqK6gCe4+IDxj k3oke9eibMy1TdGd UFIwuhDsgPxsFCN6q4Cy Xj13P3MstHzll5PbSpj5 et55qYFkq5J1qAF1IIzk WPDvgJ9pRSsdAzU7 GFUnSuTghN66kQMmOUyu Vn3koNtedRedML2nLZKz mcebHLWlrJ7mZBFqgYCu qKyyCN5xNGElzydb g407SkCpRYT0ZJBtzSHf N5IspD6rCiEzLTQmKMIh T7EybLCdTBcgJ723MNjz EcU7HOQccqKuW3Ky IGPpiAohIrQ9n2B0Yj2Z v2CyrwbmLRZ8LYfeWULk HhLuJgSuAmF4W8LnEjk1 TQIcdOqmQR1yQ7If UBSptjxgwybmmIL6BCUr OZWyqX17wKWnKIgrYy9s i7B5l159PMSlGFOebM55 Jx4vnRalGUXajYVJ pO0yxrkwd0kdahyvCiZk GFNrFWx9HTi3KUDrkVfz CvGwRVY5TsN7WEV5bFSb zM8rmZiraiiwwH5b Oyc+I13pmO7jUQP3VUJ0 cjciTLGqvkMlUA43MK26 R6UcMbcfgGCfmKA+PGRp tnXwmZzhBJ3xRsKa e6crf0YxFYudA0QzKYXw KEucCts7WBYnXHA2iKU7 vQ6fRNZuPZdvv3G7cGF5 X5QhpvWbsr8mj7gd LEIuJGabH56qjSXzo6Z2 QCPliUM4EQPqnUqsCeOn zK72Vmr+RPKqgGtka8Rh Bpazr0ads3fdvEq7 IjMwJSIgdmFsaWduPSJ0 j9FrYu78Q78yERymMCOk LJHyCJFpIEMasXoocx6n bG4mQc5+PGNvbCB3 yTO2vT0yFJHzAiX1BPex L176YxQncAKcCttao8wb x3qtxJn1JzYbMGOwqdHi hCfsTKD7g1TgYu00 C01fIRilZOFyMIYyALJs OKWgzOysmj9tiM7mAr3+ BO0kl9psbg83dT63hRM+ GFKqUQS0pHgaPJvs WNKtaW5sSFwaZrI9TZWn YuIpzG60eQDgEXudBe1s sKzboTaxYE9dTJQohooq o547YxTtx2dvJPFt vHYgZJyzOAS3F49qk6O8 LUTuTIXcXVG8bLX8bM0o bGlnbjogbGVmdDsgdmVy rFdmOIdcIWyzH837 IHRvcDsnPlBhdGllbnQg PtMtIMp4C4PkRcf3UREy ySrdEW1blQTwVAjrMw4u hLiwtSylOB1pWAOp xaxpp136AuOls8moOHIl tWRdNRzhWFT8F06nm0S8 LGAtYNWkULE0xJK4pG8d bGlnbjogbGVmdDsg zjJkjPrsWQebYSqqQ148 IHRvcDsnPkJpcnRoIERh cCU8JA04RJ08kFFmg4S1 pUB5R0UsGDXwarfu dxdveJX7VFQlSSDfoS75 Me8ieHfvAc7oFGGiMGX7 TMJkaRCvH9AueD0xDyVn KFVdIUBrT1GpgLVc ZSouP740SIobYdC7CBTl lpDdA9SpAHWcfEhnMzQ1 b7E8So2WZ3V1CN35CW85 uLVey8E7oGP4X2Fc IHItzuljtfjyoXM0ELHz GCAexQ50Yl1jaGsrHw9k KQVwAHB7DADkoNUbE2Iq mD4yPwUdOJXaCHOz L2RrlROiCBtyA813DQxe LgY3UDKdpuJtB1QfJCDg qSbjWaZ6a6U2Eb2RXGi8 TM47JJ61oFVbr1I5 gGC9Q4PhARBxtqvvmlnx nGS0DNYuHUNttC68Vh8v cGvcIt6aCSLwKRR9ZBMh hKTlI2KlxP9tMoJv LPRtMXVzH5SomHDnSSkx R890ZUzcVoQ2RPUgbhKv C2JqDRQyqLhjOtQ9q3P1 Zn4PEFSlNF40DME1 wQE1MT49JA39L0RfIujc dGFibGU+PHRhYmxlIHdp ZHRoPScxMDAlJyBzdHls BW3jOi5wXHJcQGUg sXyavXAoDwQtg1uaVQLg KDxxYB5dlTxuL2RbpPT2 TGVwh6s4Vr81X73oR6Ae dXA+QLJvbNQ5dPP5 pL4dJbCiOwF0HIaxQ814 HqBzoIVvKlmvm3uve8mt vBp6ZrG5HXVcyrBlkUnc JOH0x3JkYl30J19x IHdpZHRoPSIxNSUiIHZh pZosaf7arZ5iPt7+PGNv iXN0tJI8cE0oGuYmKtV5 MUesV904KdOemLGo Cvnwj6zvr4jdaPw4BrQm WFMfhxYciDciTJF6j3Sn Ac44W1SuuVdol9DoMko5 my47jGVdc0L7kKJ8 C4BbNYZmuxdqgDQzoIwg UR3fQALbwhdjTHXwcM6g HXBeU2f9LvOsYxC6GDez A4FchtO6HOTtlEAf JQisOUV1D49yr6T6LLXq DIOnKUJ0rQP8fO4ouWjl bjogbGVmdDsgdmVydGlj ZXnlHWvkK882BXKn hJnoICTkfT8lUDVdsUPl eLpjVO4oLDUgfkydOlAR TcsFOWVvHXTKJHLCFX4A TED4M4TbBwh0LDTv zUywOU9okIHpQCyjSu6o nJcxvEsoUI1zACTasezd UILvqZ9dVDUrdKVtfFko AS5gYVJztxyju462 XvUwFQU9OHUsfYAdH8Fg wE0vRqNrEVKnMYCgV5Ah bSKdGHedM141ECymKqA8 DEVbhbDkG0WrIXVd wXgqPdW0p9V4Af4zBp5d GG4rYFo4BP34KR19uGSq m0H5zWK0J3OwRVFoasbh odakzNH5FYHjJDIf fE47zATiHEekZo0gf1T3 y724ZTRbCZKobQ28Ie2m vDvuHOFtpYVYxB2vqzyq j3tsllcxCuSlXEZo ILr5AJb2OOFniCmsLwSz JYA1XpW6DCW1uNCvgL7p xVpfxocmeV0dQul+NDYg CSIvbnT5I4AoWmf2 CSXlkAkgYA1syEWlQUjo Kv3fnVhiuSnjQF0pJIKx gzsaNSUsuM1rRUKoxFWf hUkcKA0jWMBfowuq m912WkPaLQC5GORxaMQw L8IiwU0fVeVwTRWqJRGt R0FkmQIgJRclL334RJmv YaO8GKRtelHpP4Mc ACCioAolDyD9f1V8Go1J ID7uaQP5T5GyNgg5SZIm nMcfRM3voNEvHAglWm5i fIytgTvcEY9xQHZu nvqvZZAswK7jEUBamKSn hDejTX0hDJApdlqcr887 ZoHzEFD8JNApzTLwK8Vb jI6iFoDqUUTgYBKv X5AtkMLeGAnnC188MXzu SkV2UREyqlOrZ2BpYTSt hSbqOaK0p7W6Nm0BeCSr ALIxHV39AC98RM11 D4UeAlzvsYZppPD+PHRh YmxlIHdpZHRoPScxMDAl JbCxbSxjTN7sVj8rYVMg LWNvbGxhcHNlOiBj m8fdDVHaJLkhVD0djRix Y6XazKR8GZAea3r8Oq12 V86dO3YzbOJ+PGNvbCB3 iZU0qD7rBcLzRmV9 CNwaL795ZzMtqBEjIejl n3dvz9xxcCl5TxTyEXEu yhFvgNnbYPI2o7OmSs98 T03pVFixUEPgVYLd TGPfNTSmbYssqz7dsI8d Ii8+MTKnfQP6vCE6yW3d LkZsSfT6VSyhT440VyZb eTXyBbydH53dK7Ar dXA+WPXmGfy9MENojRsu GV1qoDQmTAjrYh9wEVV7 HcLgPlJpPFfpK5XmTTYb jumgkegdeER6LYQd MZIpjR46Ow3dyDgiBt1k XCXnBFP9ZTMslZVqU4Jr pC4sAeNnPLOkGNZjQ3De rDRbEWkdG722ZZnh KpW0ZKGcvrVnF1EaKJDr xDybRuL6l6K7Pa2UdLfm rEQbOO5hFxVhGXc0X1Xg Ygk5IVYweGgfRA2a vNMfPVjdNj1boYkyhMqb JS9mQLRmspwai288OrYp h8ejAZUrcTCbTSglDCR3 D22zu9P7XUWiKCNj MMM4bFB7aC8loXuuuzdk bGVmdDsgdmVydGljYWwt KLztK953SCNqnMinSgNO Grf8B9ZeLui5DCJw vRypHN4vcIPsYXucFd0d jEqbeKpvEV8kWCWefykv b838VuHyk1dyUUXgjAWk BXssHPH5L50vj3N2 LNPoYQEvXGQ3aGG5mX9i bGlnbjogbGVmdDsgdmVy qSqyVStdHTzbT717CVLy oBvlVs5RTea6M6Bi Avd5SZWaxCchJF3ybKQg OAatLm0rrEbjcAhuGN7a FHWxplyri569KbFwc7qd IDEwcHQgVGltZXM7 R50el0D1ORFcEZKqKUH4 nLT6rQ2ilDceuplafMXm dDsgdmVydGljYWwtYWxp N076TDHmgIgnDxMv eWVyOjwvdGQ+HA63gx94 E0GkPmtxZvq3UQDfTMM5 vIC2bW7xUGTfXMriv0P4 fEM7O0FqkwFyrs5s b2xs (more content not included)... Normal [facility] Physician Orderon 05-20-2022 Physician Order [id number] #1.00CD:127 Normal [facility] MA Mamm Screen w/CAD if perf and 3D Bilon 05-17-2022 MA Mamm Screen w/CAD if perf and 3D Jeromy Exam Date/Time: 05/16/2022 15:15 EST Reason for Exam: Z12. Report IMPRESSION: BIRADS 0 - INCOMPLETE, NEED ADDITIONAL IMAGING EVALUATION. Left breast ultrasound recommended. EXAMINATION: MA Mamm Screen w/CAD if perf and 3D Jeromy CLINICAL HISTORY: Z12.31 COMPARISON: Priors from 2016, 2015 RESULT: Digital [...] IS VERY IMPORTANT TO YOUR HEALTH. THE [employer] GUIDELINES RECOMMEND THAT WOMEN 40 [...] REPORT Dictated: 05/17/2022 3:48 pm Chace Sebastian MD Signed (Electronic Signature): 05/17/2022 3:48 pm Signed by: Chace Sebastian MD Transcribed by: MIKAYLA Technologist: DENILSON Assessment: BI-RADS Category 0-Incomplete: Need additional imaging evaluation Recommendation: Additional projections Normal [facility] Consent for Treatmenton Consent for Treatment [id number] #1.00CD:127 Normal [facility] Coding Summary.on 05-06-2022 Coding Summary. CD:[id number] Gh0bWw+PGhlYWQ+PE1FV OIlX89pyRKemW7EN8gWB H8XZUAZZNIITY1KNR5yr IJ5XUmfP2WefrTw CgrqlLSqDA27SIf2GDS8 kWoeBLoteE2ysYLkX1z1 FyXnKS54hL01TVxgCKMc DcL3CcRleonweDPs T3mxMwUueFEoSiq+PHRh YmxlIHdpZHRoPScxMDAl SmWefRkyBN0iUo9pQUAs LWNvbGxhcHNlOiBj q6dlGENpAMtzWS1kqCvh R9ImiKS2BSQzq9s4Ig44 dHI+AISnGHY6xIvdNOyc r573QnOzx0hjUCZ8 vYTcQJvzKAH7S59of9J8 VHTbMQOxXBB1eGX3yG9m pFruzgynU5TqtRKePiT1 MDT4uABrbF0suUba soaspU6cLlo+E20KJV6U RWBUED6KIze9R9RfPkcz dHI+AC30GUKcGG92uUJv rRKqj2ueaKt4UwYn FYGsCHM8eBsuSCvsw5Cp RVCwN71ohEDsh1H5QGPu uAwmzWEbMdPbkWV9zU5n ZSdgsrvec3zovfry Qswcl2bagp84lR38D44o LRmfOMYkGZR4KNPgGYVk dDxlrw9llS5dHd3+IDxj j6cnq2qvrSq6FwWv XOVnazIwoBciLHV3n0Gl Qq96M5WjrCjpo1XvZrw1 oo54sYLfp5B7wXX3CIrm ZSCjqD3wUFilYyG7 EASvNuDpeO64dJAkGJea Lw0yjLxpdFxeVI0aYGFp jglgEAPxeJ8pWODkeHDw kZjmSV2bLYKhkxnv e733UbSmLEG8SNMbmQHn H6SviZ1qMqFqXYZeERKq B2GygMXyGKviF807WLwa GdR7GYIonfMsF2Hv QILldYgnDmP6m8Q4Sc1C b4RvsgtsFEW2UOujOEAn UmF4GoGoCdG6W4SvGwf1 AGJxvOseUS3lS5Au KFRgsufviaxczMB8CAAs APQmxE33lOJuQHjcVe4u o7N7d575HNGqOBBvmI87 Zz4uzJiqTKQnyRVJ qR7ckqysf0bbvdrwTnMc FJOqUEd4JNu2WBTfxVkf ThLpOLZ0SzS6SNA1wSKy pI1boLxyojexcY9w Oyc+N49wcE2eSAU1NSG5 eusbDKEsejEyJH45BO40 H6VcXumjsSLyaVC+PGRp bsJvvTxhYO3fXyFz m2bbk4QpVXiwP1UbWKLd IIyiQzc0EWHvPYE0hIA0 qM6dFDUaCVhex1W9hRJ5 C7VuzsTnpk9wz2yr ELPjEVglN38shJVvm4A6 CYCemEA8AUWeaTinOlMf eF20Ezd+SQVkhDnui8Bs Gswrt7cef4birEx7 IjMwJSIgdmFsaWduPSJ0 e0OnSa21L23bBKyhNWXj HIKdUCBbMAUnpDrpbs7d vN7nSg1+PGNvbCB3 dPA6hI2iVXAuNbO4TKyq V031KhTgfXKuXiyjc9te s1ehbQv7DsTuYGGivcHs tMryWKG8u7OrPs06 Y31iEYveSMVeZEDvJCNh JKJleEqqvs4jiY6gWg1+ CH5nm9lqin81bU51uRW+ RACaSDG2oPpxUEnn GKJiuK2fIKqxMhB5GEHl PwCudY29fEJaREbcYm4l vBwliMojTZ4aEEXucvze p757BmEoy0ytVFPm lQAkCZqdSRI8H10zm6H5 FFSsKMYcSTT0pUV8tQ7p bGlnbjogbGVmdDsgdmVy oUmhBIrbMGtpN198 IHRvcDsnPlBhdGllbnQg ZeRnEBh7O2HvZbg6UMKl uGlfBN3lnDXtIPdnHn6s mDxnyNnuWP4qFVZl bxphx372MtFvb1wrLRZc dERkODvuNTI1H92iv0L9 MQVgPGFtXBU0oHH4aU5t bGlnbjogbGVmdDsg pwLkkWdaOTvxAUjyO338 IHRvcDsnPkJpcnRoIERh uPG7TH21GO52pVHwu6Z8 nPC0I4RfNVKquqfw cpaqmTR5VHXxLJLplD54 Zn5tzDltSf5uWCHjZSR2 KQQhmRHmH4RruR6yNpZi IFBfWGVeD3UvsEFk FCmsY796ENknWpJ7ZTPm ssOfT5DaQMFqcNzmCrR1 i0M2Xg5NI6H8RX45JV63 qALva0Y6tSA2O8Bh SDZmnrvqqeohuPR3DTTq QMTkdP73Ku8xvRzcBt7s GNOiAWT6AYGncMWzR8Qa lY6pCbUnJBTkTSAj T2LieKNdZRbdO384LDrr HuQ8PJMfvjGdS5PnCMMw rLrxTtJ3z1E4Vx2WSOt7 VR52ET00eYCoj3G2 bPV6I7LxZSBbhvxiuyvy pMT6NJQvWNCyhV70Rl0w yPtgRr1jNTIqFCR9UWCu rRGjJ6HipQ2cAkTg ADEzNZTwF0VqgRBgXPga R601YYkrBtB4LELtpjAa H2OiGQTeuXbkMcX8a7M8 Sw7AEOHyEC95JGP0 kOE6ZK82YH35H3XaKlvy dGFibGU+PHRhYmxlIHdp ZHRoPScxMDAlJyBzdHls DF7oEf8eEZKlOPHn kCjmoYYoOpIfi4sgSHRn TAwkOL6ubAqnT4SwoKZ6 UFBwf2e9Px47W14iO5Do dXA+VDBshNL6mFT5 uN1eQfIzZvH6RZnqM347 IqQppHZtRwwzs3itb3pn pDo5AeX9AQGhhlTqpYih RQP3q1HxXg63P80h IHdpZHRoPSIxNSUiIHZh fMfgms6flK4zTw0+PGNv iSZ0uYS6zS5wIkBiOfM0 MJtwQ008UcRlmEBq Aledd5vot7nglDi9IkZf RFRvbhWiyTclAOU6r5Fn Av46J3PqzHyrb5WiSgi1 du54aQDjq1W6tFK7 Z5QxCRZrhnjvlQVqpAkn WV7eSKJzsbbvQYBhyI9i PJYrH8s5JdMwXhC3IJti K8MlmpH1CIEznTDh AMecVJR6Z24tv8S0FKDm PMThOZG3dSS7fA4xvIec bjogbGVmdDsgdmVydGlj VKwlQEfnA361UJLl kZswGYIwaR1bBGMiqEAu vLlbGE5dJOKtujkxCcBK FwiOTKXaXSGPPINNMY3X NER4S4MfQtp1POEk gToaTZ6trKLgTHucLr0z iWwtrZtnRV0iZSUvkzoc NKVphX9yZJGytZOtyWsu VD9fZNWqvgqdp251 YuEiHOX7OGHolPVvH9Ps wG2wWvQuFXUwBWMuF5Up uPElFJnuG880TYnfPuI1 AWZcrlDsC3FiHMLu cOslGoP7n5S7Li0jDa7y DR2fTZg7LV53HC32wPJh v3X3eFE6Q5DcXMTfjgxt orbsaZF3FDMxTWFo fB35zFMeWKtbXi9js0A8 l304WNBrSZIxwU81Lj6m iYuuPNTccNMQcU3usimi l5mpfnkiUnOhYEXb DVv3GRs9QNMvsLggUmTp OPE5LoE9KDN2iTRrzE2n kOowvgzhdT4aAbc+NDYg YPQjyrA6H6PqLtd1 TRUddAjkZY3fkOJhMLdl Ro4bnMuwlAtxAA8gAEJv xwriCRVbzU2wPPWpxVNu aUzwOZ1gKZGbvpdp j539XeIwXSR6FJGqcPFq I4WeuK0hBbAdHKPlTTKi M6JrbQTyHLgdN644JUln EkX9XJDewyEoI0Bu EQBhxOgySrP9v2S7Ss5G FR5vuFX3W4UyVnl4RYTy vEgjOR9kdECyYIqyAr0j jWtvyVmkGL8fXMWh jciaYQBhmR1iXEZiqZGo aXoeKL8aDCYhtdjhl657 EzPxQZX5SRSwgNKpL8Fz vR8jBcBfOYZiQKKr Q4ZzwNKwJChaI962PCvk PcB9GRNuliVdG5RaNIBn hRiiXbK8k9R3Ui6EbAVo XHDnPC42PX37PF39 D6ZaLusseTCsiYZ+PHRh YmxlIHdpZHRoPScxMDAl YnXgvUlfNU1bQo0sFRBk LWNvbGxhcHNlOiBj c3tqLBRpVYcgLX5xhMtd Y7GweME7JATdv2d0On58 X52tI3UfaNH+PGNvbCB3 vHT0eE0lYtJdAbI5 KIunH125EgStzBByCxjy m5kbm1mivXj2LrUmMUMt hfNuaLptRAN8v3KyUj33 S08eFIijZHHvAHBv EJOoQCIewSoinx6fzQ2l Ii8+MGGtlJN0eFQ3kE8e DqHiMhR3PRlfS585EeHw cNVdFcgbU71rH3Gu dXA+UHBoLlg1QJDwbEow KW5sePTcWZjwRz1pQOD7 CnEkJaEeRHuoR4WyFKIf lpwhggkhgOR9ZIXo KZIikW78Ip0mxRbjGe4u UTAfEZW3EAMaeOUuT7Cp hL0dGaXhZDZnZPYyR6Tf kAFbTBdwB546SMsk OxC3AANcgqTbO7SuDVUe fIvwBjO2v1W5Le1MeTvr nNVuTT3oZeQgFUv4I9Ge Uit9MWYntJrxDH4y dAIvOTgmHs4fqSyruPfq PB0bQUJbwrxnt750RoCs a3hcUTFcbUNwFDamQGW5 P69av2X6YDRdNHOo YWT4wJF5qD3dfQuuhxax bGVmdDsgdmVydGljYWwt GPruC876HRVazRblAxRS Mnd2N4PsEqu5IFBs eZxeST9haJIcIJchEh8o xFnbeNiaGZ2gSNTbervr v279NkZwt6qsBYMjkFPc USedEEF0W39ir7I4 ZPOlYWLjPZB5rDT2kE9l bGlnbjogbGVmdDsgdmVy oNexMSwlSPetJ192VBFg rHomXz9JEyc0Y5To Pem4ROYgfZbkDC0dpQKw POnhXq0ttMqcpJcyVV6x OPCaaitry994HnRhg9bd IDEwcHQgVGltZXM7 G21uc9L5IWPlNLYaMDQ2 hTQ9gB5wjXbfheysvKVb dDsgdmVydGljYWwtYWxp X422YCNrxAsoOrPb eWVyOjwvdGQ+SE55uu38 I0BmXeunHzo7XMOgJKA1 sJX8wJ2iFKEaBXoyk7N1 cEZ0M1WjiaQkph3y b2xs (more content not included)... Normal [facility] CHEMISTRYOrdered By: SYSTEM SYSTEM on 05-01-2022 25-hydroxyvitamin [...] Normal >=59mL/min/1. 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 Otherwise unremarkable neck CT. Normal [facility] ALLIED HEALTHon 12-31-2019 ALLIED HEALTH HNO ID: [id number] Author: Delvis Reyes (Tech) Service: ? Author Type: Glass Or Mirror Inspector Type: Allied Health Filed: 12/31/2019 2:33 PM [...] MR; Exam(s) Completed: Head: Cranial Nerve, [place] MRA SIGNATURE: Delvis Reyes, RT Phoebe PATIENT NAME: Thaddeus Scriver DATE: December 31, 2019 TIME: 2:32 PM [facility] MRA BRAIN WO IVCONon 020 MRA BRAIN WO IVCON * * *Final Report* * * DATE OF EXAM: Dec 31 2019 2:34PM [facility] 0272 - MRA BRAIN WO IVCON / PROCEDURE REASON: Cranial neuralgia * * * * Physician Interpretation * * * * EXAMINATION: MRI BRAIN WO/W IVCON, MRA BRAIN WO IVCON HISTORY: Cranial neuralgia TECHNIQUE: Noncontrast MRI brain protocol including diffusion and CISS sequences and post contrast images. Intracranial 3D [id number]-zb-[id number] MRA with 2D multiplanar and 3D maximum [...] or skull base. Intracranial vessels are patent. Rubber Covering Machine Operator: TRAVIS Transcribe Date/Time: Dec 31 2019 2:40P Dictated by : CAROL MCGEE MD This examination was interpreted and the report reviewed and electronically signed by: KELLY FITZPATRICK MD on Dec 31 2019 3:52PM EST [id number] [facility] MRI BRAIN WO/W IVCONon 12-30 MRI BRAIN WO/W IVCON * * *Final Report* * * DATE OF EXAM: Dec 31 2019 2:34PM [facility] 0295 - MRI BRAIN WO/W IVCON / PROCEDURE REASON: Cranial neuralgia * * * * Physician Interpretation * * * * EXAMINATION: MRI BRAIN WO/W IVCON, MRA BRAIN WO IVCON HISTORY: Cranial neuralgia TECHNIQUE: Noncontrast MRI brain protocol including diffusion and CISS sequences and post contrast images. Intracranial 3D [id number]-cr-sdvvpr MRA with 2D multiplanar and 3D maximum [...] or skull base. Intracranial vessels are patent. Rubber Covering Machine Operator: PSCB Transcribe Date/Time: Dec 31 2019 2:40P Dictated by : CAROL MCGEE MD This examination was interpreted and the report reviewed and electronically signed by: KELLY FITZPATRICK MD on Dec 31 2019 3:52PM EST [id number] [facility] PROGRESSon 12-07-2019 PROGRESS HNO ID: [id number] Author: Alba Johns Service: ? Author Type: [...] SIGNATURE: Alba Johns MD PATIENT NAME: Thaddeus Scrsudha DATE: December 07, 2019 TIME: 7:56 AM [facility] Vital Signs Date Time Vital Sign Value Performing Clinician Faci [facility] 07-15-2023 13:32-0500 Body mass index (BMI) [Ratio] 32.52 kg/m2 Jose Katty DO Work Phone: [facility] 07-15-2023 13:32-0500 Body weight 80.65 kg Jose Katty DO Work Phone: [facility] 07-15-2023 13:32-0500 Diastolic blood pressure 84 mm[Hg] Jose Katty DO Work Phone: [facility] 07-15-2023 13:32-0500 Systolic blood pressure 122 mm[Hg] Jose Katty DO Work Phone: [facility] 04-25-2023 09:55-0500 Diastolic blood pressure 91 mm[Hg] Guillermo Mueller [facility] 04-25-2023 09:55-0500 Heart rate 66 /min Guillermo Mueller [facility] 04-25-2023 09:55-0500 Systolic blood pressure 146 mm[Hg] Guillermo Mueller [facility] Encounters Encounter Date Encounter Type Care Provider Facility Start: 07-29-2023 End: 07-29-2023 ambulatory Reagan Ryan Facility:[facility] Start: 07-29-2023 End: 07-29-2023 ambulatory MD Reagan Ryan Work Phone: [facility] Work Phone: Start: 07-29-2023 End: 07-29-2023 Departed Referred MD Reagan Ryan Work Phone: [facility] Start: 07-15-2023 End: 07-15-2023 ambulatory JOSE SCHAEFERO Not Available Start: 07-15-2023 End: 07-15-2023 Office outpatient new 20 minutes Jose Alaniz DO Work Phone: [facility] Comment on above: Mass of left breast, unspecified quadrant Start: 05-06-2023 ambulatory Guillermo Mueller Facilit y:[facility] Start: 04-25-2023 End: 04-26-2023 ambulatory Guillermo Mueller Facility:[facility] Start: 04-25-2023 End: 04-25-2023 Patient encounter procedure Guillermo Mueller [facility] Start: 04-17-2023 End: 04-18-2023 ambulatory Oneida Bahena Facility[facility] Start: 04-17-2023 End: 04-17-2023 Patient encounter procedure Oneida Bahena [facility] Start: 05-23-2022 End: 05-24-2022 ambulatory Jalen Matthews Facility[facility] Start: 05-23-2022 End: 05-23-2022 Patient encounter procedure Jalen Matthews [facility] Start: 05-22-2022 End: 05-23-2022 ambulatory Jalen Matthews Facility:[facility] Start: 05-22-2022 End: 05-22-2022 Patient encounter procedure Jalen Matthews [facility] Start: 05-16-2022 End: 05-17-2022 ambulatory Jalen Matthews Facility:[facility] Start: 05-01-2022 End: 05-01-2022 Patient encounter procedure Jalen Matthews [facility] Start: 11-21-2020 ambulatory SELF SELF Facility:[facility] Start: 11-10-2020 ambulatory ANNA GREEN Facility :[facility] Start: 10-13-2020 ambulatory KEVIN VELÁZQUEZ Facility: [facility] Start: 10-13-2020 ambulatory KEVIN VELÁZQUEZ Facility: [facility] Start: 09-25-2020 ambulatory KEVIN VELÁZQUEZ Facility: [facility] Start: 09-12-2020 ambulatory KEVIN VELÁZQUEZ Facility: [facility] Procedures Date Procedure Procedure Detail Performing Clinician Start: 12-01-2018 Echocardiography Start: 02-03-2015 diagnostic hysterosc opy with endometrial ablation Jalen Matthews section Jalen wells Comment on above: x2 2011 Endometrial ablation Jalen ward Ligation of fallopian tube Tomas Matthews Comment on above: with second c sectio n Plan of Treatment Date Care Activity Detail Author Start: 07-15-2023 End: 09-12-2024 MG Breast - bilateral Diagnostic Bilateral diagnostic mammogram Imaging Routine Mass of left breast, unspecified quadrant Expected: 07/15/2023 (Approximate), Expires: 09/12/2024 [facility] Work Phone: Comment on above: Expected: 07/15/2023 (Approximate), Expires: 09/12/2024 Immunizations Immunization Date Immunization Notes Care Provider Yomaira rojas 05-29-2012 tetanus toxoid, reduced diphtheria toxoid, and acellular pertussis vaccine, adsorbed Jalne Matthews [facility] Comment on above: Reason for Medicatio n: Other (see comment) NEGATED: Highlighted row has not occurred!04-25-2023 SARS-CoV-2 mRNA (tozinameran 5y-11y) vaccine Guillermo Mueller [facility] NEGATED: Highlighted row has not occurred!04-25-2023 influenza virus vaccine, unspecified formulation Guillermo Mueller [facility] Payers Date Payer Category Payer Self-pay [id number] 2022 Medicaid [employer] [id number] 2022-Present [address] [place] [address] [id number] 2022 Medicaid [id number] 2020 Medicaid [id number] 1975 Unknown [id number] 1975 Unknown [id number] [id number] 1975 Unknown [id number] [id number] 1975 Unknown [id number] 2.16.840.1.828580.3.579.2.594 1975 Unknown [id number] 2.16.840.1.615177.3.579.2.594 1975 Unknown [id number] 2.16.840.1.717879.3.579.2.594 1975 Unknown [id number] 2.16.840.1.496422.3.579.2.727 1975 Unknown [id number] 2.16.840.1.321873.3.579.2.727 1975 Unknown [id number] 2.16.840.1.372113.3.579.2.727 1975 Unknown [id number] 2.16.840.1.105047.3.579.2.727 1975 Unknown [id number] 2.16.840.1.090964.3.579.2.727 1975 Unknown [id number] 2.16.840.1.323851.3.579.2.727 1975 Unknown [id number] 2.16.840.1.569206.3.579.2.1259 Unknown Yanni BC/BS [id number] Unknown [id number] Social History Date Type Detail Facility Tobacco smoking status [facility] Start: 06-24-2023 Sex Assigned At Female [facility] Start: 04-25-2023 Tobacco smoking status Heavy tobacco smoker (finding) [facility] Start: 06-24-2023 Tobacco smoking status NHIS Smokes tobacco daily [facility] History of tobacco use Cigarette Smoker N [facility] [place] [place] [facility] Start: 06-24-2023 Cigarettes smoked current (pack per day) - Reported 1 [facility] Start: 07-15-2023 Alcohol intake Current drinker of alcohol (finding) [facility] Start: 06-24-2023 Alcohol Comment caffeine: 3-4 cups per day [facility] Start: 1975 Sex Assigned At Female [facility] Start: 07-14-2023 Gender identity Identifies as female gender (finding) [facility] Start: 07-14-2023 Sexual orientation Heterosexual (finding) [facility] Functional Status Date Assessment Result Facility 04-25-2023 Functional Status N/A [facility] History of Present illness Narrative 07-15-2023 Thelma [...] nursing note reviewed. Exam conducted with a marbleizer present. Vitals: Estimated body mass index is [...] Appointments Appointment Date:05/16/2022 03:00:00 PM Scheduled Provider: [facility] Appointment Type:MA Screen (FT) Future Scheduled TestsMA Mamm Screen w/CAD if perf and 3D Jeromy 05/16/22 [facility] Evaluation + Plan note Radiology Note Date & Type Note Facility Evaluation + Plan note Future Appointments Appointment Date:05/23/2022 02:00:00 PM Scheduled Provider: [facility] Appointment Type:US Breast (FT) Future Scheduled TestsUS Breast Unilateral Lt Complete 05/23/22 [facility] Evaluation + Plan note Note Date & Type Note Facility Evaluation + Plan note Future Appointments Appointment Date:04/25/2023 10:00:00 AM Scheduled Provider:Guillermo Mueller MD Location:[facility] Appointment Type:[address] Evaluation note Note Date & Type Note Facility Evaluation note Diagnosis Mass of left breast, unspecified quadrant documented in this encounter [facility] Evaluation note Note Date & Type Note Facility Evaluation note No assessment information availa [facility] Work Phone: Hospital course Narrative Note Date & Type Note Facility Hospital course Narrative No data available for this section [facility] Hospital Discharge instructions Note Date & Type Note Facility Hospital Discharge instructions No data available for this section [facility] Progress note Note Date & Type Note Facility Progress note No data available for this section [facility] Summary Purpose Family History No Family History Records FoundNo Family History Records FoundNo Family History Records FoundNo Family History Records Found No data available for this section No data available for this section No Family History Records FoundNo Family History Records FoundNo Family History Records Found Advance Directives No Advanced Directives Records Found Advance Directive Response Recorded Date/ Time Advance Directives No May 1:26pm Additional Source Comments INFORMATION SOURCE (unrecogn ized section and content) DATE CREATED AUTHOR 12/05/2018 [facility] DATE CREATED AUTHOR AUTHOR'S ORGANIZ ATION 12/30/2019 [facility] DATE CREATED AUTHOR AUTHOR'S ORGANIZ ATION 01/02/2020 [facility] DATE CREATED AUTHOR AUTHOR'S ORGANIZ ATION 07/19/2021 [facility] DATE CREATED AUTHOR AUTHOR'S ORGANIZ ATION 05/03/2023 [facility] DATE CREATED AUTHOR AUTHOR'S ORGANIZ ATION 07/16/2023 [facility] EPIC DATE CREATED AUTHOR AUTHOR'S ORGANIZ ATION 08/07/2023 [facility] Patient Care team informatio n (unrecognized section and content) [employer] Relationship Specialty Start Date End Date Kayla Pinzond [address] [place] [address] PCP - General 07/15/23 Team Status: Inactive Member Role Status Dates Reagan Ryan MD Attending Provider Active Start: July 29, 2023 End: July 29, 2023 Reason for Visit (unrecogniz ed section and content) Reason Comments Breast Mass Left breast lump Goals (unrecognized section and content) Goals may be documented in a n alternate section FOR RECORDS PERTAINING TO PATIENTS WHO ARE [...] BE BASED ON THE PRIMARY CLINICAL RECORDS. [employer] provides no warranty or guarantee of the accuracy or completeness of information in this document.
--- NOTE | 2024-01-22 10:11 | US_ITS ---
Patient Name: THADDEUS CRONIN MR#: [id number] : 1975 Exam Date: 01/22/2024 Ordering Doctor: DR Deepak Alaniz . RADIOLOGY REPORT PROCEDURE: MM TOMOSYNTHESIS DIAGNOSTIC LT, 01/22/2024, 10:00 US BREAST LT LIMITED, 01/22/2024, 10:29 COMPARISON: US BREAST CYST ASP LT, 07/29/2023. MM DIAGNOSTIC MAMMO BI, 07/16/2023. MM TOMOSYNTHESIS SCREENING BI, 04/17/2023. MM TOMOSYNTHESIS SCREENING BI, 05/16/2022. INDICATIONS: Mass OF Left Breast Calculator Name NCI Breast Cancer Risk Assessment Tool 5 Year Breast Cancer Risk 1.60% Lifetime Breast Cancer Risk 12.50% Personal Breast Cancer No Personal Ovarian Cancer No Treatments None Family Cancers Grandmother-maternal with breast cancer at age 52. LOCATION: The [facility] BREAST COMPOSITION: The breasts are extremely dense, which lowers the sensitivity of mammography. FINDINGS: DIAGNOSTIC CATEGORY 2--BENIGN FINDING: LEFT BREAST: Stable benign-appearing calcifications seen on mammography and during ultrasound evaluation. Clearing of previously seen large cyst. An 8 mm benign-appearing cyst is noted within the mid breast 1 o'clock position. Annual screening mammography is recommended. RECOMMENDATIONS: ROUTINE MAMMOGRAM AND CLINICAL EVALUATION IN 12 MONTHS. Active recommendations from prior exams: ROUTINE MAMMOGRAM AND CLINICAL EVALUATION IN [#MONTHS] MONTHS. Due on 07/16/2024. PLEASE NOTE: A NORMAL MAMMOGRAM DOES NOT EXCLUDE THE POSSIBILITY OF BREAST CANCER. A CLINICALLY SUSPICIOUS PALPABLE LUMP SHOULD BE BIOPSIED. Dictated by: Reagan Ryan M.D. on 01/22/2024 at 12:18 Approved by: Reagan Ryan M.D. on 01/22/2024 at 12:23
== END 2024-01-22 09:58 | disposition home or self-care (01) ==
LOC: MAMMO 09:57
PROVIDERS: Visit Provider Obstetrics & Gynecology
DX: N63.20 Unspecified lump in the left breast, unspecified quadrant (principal); Z80.3 Family history of malignant neoplasm of breast
CPT/HCPCS: 76642; 77065; G0279

== ENCOUNTER 2024-08-10 17:38 | Outpatient (OUT) | payer OTHER, SELFPAY ==
--- NOTE | 2024-08-10 17:40 | MM_ITS ---
Patient Name: THADDEUS CRONIN MR#: [id number] : 1975 Exam Date: 08/10/2024 Ordering Doctor: DR JOSE MAZARIEGOS . RADIOLOGY REPORT PROCEDURE: MM TOMOSYNTHESIS SCREENING BI COMPARISON: MM TOMOSYNTHESIS DIAGNOSTIC LT, 01/22/2024. MM DIAGNOSTIC MAMMO BI, 07/16/2023. MM TOMOSYNTHESIS SCREENING BI, 04/17/2023. MM TOMOSYNTHESIS SCREENING BI, 05/16/2022. INDICATIONS: Screening for malignant neoplasm Calculator Name NCI Breast Cancer Risk Assessment Tool 5 Year Breast Cancer Risk 1.60% Lifetime Breast Cancer Risk 12.50% Personal Breast Cancer No Personal Ovarian Cancer No Treatments None Family Cancers Grandmother-maternal with breast cancer at age 52. LOCATION: [facility] BREAST COMPOSITION: The breasts are extremely dense, which lowers the sensitivity of mammography. FINDINGS: DIAGNOSTIC CATEGORY 1--NEGATIVE. LEFT BREAST: No significant suspicious finding. RIGHT BREAST: No significant suspicious finding. RECOMMENDATIONS: ROUTINE MAMMOGRAM AND CLINICAL EVALUATION IN 12 MONTHS. PLEASE NOTE: A NORMAL MAMMOGRAM DOES NOT EXCLUDE THE POSSIBILITY OF BREAST CANCER. A CLINICALLY SUSPICIOUS PALPABLE LUMP SHOULD BE BIOPSIED. Dictated by: Troy Hernadez DO on 08/12/2024 at 15:32 Approved by: Troy Hernadez DO on 08/12/2024 at 15:33
--- OUTSIDE RECORDS SUMMARY | 2024-08-10 17:43 | XMS_ITS | CCD ---
Author Organization [facility] Care Team Providers Care Court Assistant Name Role Phone KEVIN VELÁZQUEZ Attending Unavailable KEVIN VELÁZQUEZ Referring Unavailable KEVIN VELÁZQUEZ Referring Unavailable ANNA GREEN Attending Unavailable KEVIN VELÁZQUEZ Referring Unavailable John FENTON Attending Unavailable NORMA, ANNA Almodovar Referring Unavailable ANNA GREEN Attending Unavailable SELF, SELF Referring Unavailable SUKUMAR BARNARD Attending Unavailable KEVIN VELÁZQUEZ Attending Unavailable GARETH PINZON Referring Unavailable Doreen GARSIA Primary Care Physician GARETH PINZON Primary Care Physician [phone] Guillermo Mueller Attending Unavailable Guillermo Mueller Attending Unavailable Oneida Bahena Referring Unavailable JosefOneida Referring Unavailable JosefOneida Attending Unavailable Smithesa J Admitting Unavailable Byron, Jalen Hogan Admitting Unavailable Byron, Jalen Hogan Referring Unavailable ByronJalen Attending Unavailable ByronJalen dawson Referring Unavailable ByronJalen Attending Unavailable ByronJalen Admitting Unavailable ByronJalen Admitting Unavailable ByronJalen Attending Unavailable JOSE ALANIZ Attending Unavailable Gareth Pinzon Primary Care Provider MD Reagan Ryan Attending Provider [phone] Reagan Ryan Attending Unavailable Reagan Ryan Admitting Unavailable Allergies Allergy Classification Reported Allergen(s) Allergy Type Date of Onset Reaction(s) Facility (5 sources) seasonal allergies 1 Allergy to substance [facility] Comment on above: hayfever (1 source) Seasonal allergy; Translations: [seasonal allergies] Propensity to adverse reactions (disorder) [facility] Repository (1 source) No Known Medication Allergies; Translations: [No Known Medication Allergies] Propensity to adverse reactions (disorder) [facility] Rep[facility] NEGATED: Highlighted row has been ruled out! (1 source) Drug allergy [facility] General [facility] [place] Medications Current Medications Medication Drug Class(es) Dates Sig (Normalized) Sig (Original) Acetaminophen / oxyCODONE (4 sources) Opioid Agonist Start: 03-22-2016 Percocet 325 mg-5 mg Tab 2 tab(s), Oral, q4hr for pain, 20 tab(s), Refill(s) 0, [facility] Start Date: 03/22/16 Status: Ordered azithromycin 250 mg oral tablet (4 sources) Macrolide Antimicrobial Start: 07-18-2016 azithromycin 250 mg Tab 250 mg, Oral, As Directed, # 6 tab(s), Refills(s) 0, [facility] Start Date: 07/18/16 Status: [...] Test Name Value Interpretation Reference Range Facility [facility] 07-29-2023 L Specimen: [id number] Received: 07/31/23 Status: SOUT Req Num: [id number] Spec Type: Cytology Subm Dr: Reagan Ryan MD Tissues: A CYST FLUID (LEFT BREAST 1 O'CLOCK CYST) Procedures: HE/2, Gross/Micro L4, Cyto Prepstain, PAPSTN Age/ Patient Sex Location Account Attending Physician Madelaine Croninlene 47/F [place] [id number] Reagan Ryan MD SPEC NUM: [id number] RECD: 07/31/23 STATUS: SOUT REQ NUM: [id number] WENDY: 07/29/[address]: Reagan Ryan MD ENTERED: 07/31/23 [facility] DR: oJse Alaniz SPEC TYPE: Cytology DEPT: ADAM RICARDOYT ENTERED BY: [id number] RECV BY: [id number] ORDERED: HE/2, Gross/Micro L4, Cyto Prepstain, PAPSTN [...] the sampling of the degenerated cyst CPT: 92837, 82777 Gross Description Received in Cytolyt labeled with the patient's name, date of and left breast 1 o'clock cyst per requisition is 15 ml yellow cloudy fixed fluid. 1 Thin Prep slides are prepared. 1 cell blocks are prepared. 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 female here [...] with voice recognition artificial intelligence software, specifically [employer], [employer] and or [employer]. Substitutions may have occurred voice recognition and artificial intelligence software. Documentation services were performed after patient or guardian consented to allow [employer] to record this visit. [facility] correctional program specialist and provider reviewed before signing. [employer]: [employer] Follow-up No qualifying data available Problem List/Past Medical History Ongoing BMI 31.0-31.9,adult Breast pain, left Historical Procedure/Surgical History diagnostic hysteroscopy with endometrial ablation (02/03/2015), section, Endometrial ablation, Tubal ligation. Medic (more content not included)... [facility] Comment on above: Result Comment: Elec tronically Signed By: Ervin BALES, Guillermo Cloud\.br\Date and Time Signed: 05/02/23 11:14 EST\.br\Electronically Co-Signed By: Juliann Steen\.br\Date and Time Co-Signed: 04/25/23 11:38 EST Consent for Treatmenton Consent for Treatment [id number] #1.00TIFF [facility] [place] Mamm Diag w/CAD if perf [...] very important to your health. The current [place] [employer] and National Comprehensive Cancer [...] 2-Benign finding Recommendation: Normal interval follow-up Normal [facility] US Breast Unilateral Lt Comp leteon 04-17-2023 US Breast Unilateral Lt Complete Exam Date/Time: 04/17/2023 13:31 EST Reason for Exam: N64.9 Report PLEASE REFER TO THE MAMMOGRAM REPORT. Ordering Provider: Oneida Bahena FINAL REPORT Dictated: 04/17/2023 2:22 pm Alfa Guevara M.D. Signed (Electronic Signature): 04/17/2023 2:22 pm Signed by: Alfa Guevara M.D. Transcribed by: MIKAYLA Technologist: ISSA [facility] Physician Orderon 04-08-2023 Physician Order [id number]# 1.00TIFF [facility] Physician Referralon 023 Physician Referral [id number] #1.00TIFF [facility] Provider Letteron 04-08-2023 Provider Letter April 08, 2023 THADDEUS CRONIN [address] [place] [phone] : 1975 Dear Ms. Cronin, We have [...] your prompt attention to this matter. Sincerely, [facility] General Surgery [phone] [facility] In office Testingon 08-22-19 23 In office Testing [id number] #1.00CD:127 [facility] Coding Summary.on 05-28-2022 Coding Summary. CD:[id number] Gh0bWw+PGhlYWQ+PE1FV VEzF53gtLQdqO7NV7zGD Z5HBLTBEFNSWW0PCN4oo FZ1SVylP4FcpxWt UibchIKsYM18BSd4AGM4 uBxtNWabdV4suJNtR7j0 KkJfIJ21yG90NXxuTZYo OhJ9PwKpgaradDHd H2azKqZgeBDsQmt+PHRh YmxlIHdpZHRoPScxMDAl CzAagGyiIS1tYm7jALHm LWNvbGxhcHNlOiBj j1gsPJKcPGhhDZ7mrQfw Z4CduWY7YKYvp1x2Mk94 dHI+TOLrWIR3zMseUEle t231FtCql6njHAR0 pTSxHCfmREK4Q05co6V7 GHZbBAGuISN8gLY3lT6h tYiocxfjU9RbjJElNzN8 IYJ6fZShwQ4lnNvu bhvmgG2mPgf+T07KFR0K RGCGPD1WBrk5W4YbBpux dHI+AP09XRAmMJ03yOPg cKJin6wbrRz7MtDj KMDuWOZ2lRugKVeqv4Rv QBBnL24zdQGfm4G3LLOp gDwvgFFoSvCusCV1iN1a VMtvrqpnc8hypsua Bokux7dibk66aV49U43o LXvoDYIsFJF4DRJcYNDo rYpzic6foK2tUg6+IDxj a5bqo1scrLi8JwSn BBKttxGhmBgmAOS6t3Pf Vh34I8HurHwii4FpSip7 ii68jTPrk9T4hKQ9JWiz TEEesZ2pCAbuFrU6 QYLqYwOgfK34iVXeLNvf Yt9uvLkwnAjaTS4dQGKk ttcxQMZnwU6wDTVipMCl gYiaBU1gBUYaqqwq k419EwMrZST8CZGatGAy X3HreX9sQsHxUUOhNXFb H9DhxVMsMNrrD776OEde JkC3WXQlwsRxG7Cj LYFlhVeuViL1v4O8Vo3P u5WidsnrHUK6SVtdBMXm BdYxWoFxTuZ4Q1PjCli8 LJGxyDueDN5rC2Hq GOFrudxcnufpxNR9ADGp PYJpnD54rUQtNQwxZz6v x9F2i036IPBsACQamR92 Rv1ikVzfOOObsZYY dB4bdnbfn1sljrpaDjPx VTOrLHt2XMj5WMVffRjd BdQfOPD2OvV6HEA8oOMm nC1xtEofvxzyqM9o Oyc+O71rtT5hYKW1HYF1 axzuTUFxdpVtYN30JF02 Q4QlRonzbQEvpFS+PGRp qqBscGkjIX1uOiKw x5vty8VdALrbK6RqCQWq YWfeEmx1PZFsVIE0sCL5 wD4pWMJbNDefu0G9iBK8 Z7HllpStgu0vo7ph OLNiXHceZ06ynVAaa0D9 BCAhjKP8FJFxtCisBcJj qK78Hik+YJMtiMijp5Yh Mxgso2exl5takNi0 IjMwJSIgdmFsaWduPSJ0 i7UwEj67F97zWDeuYFTz AUJaPHDrQJFbjAhwmg8b wJ5pCm4+PGNvbCB3 dZU8uA8lNQRiWoS2CFfz Y208UjOkgYYiMqrzx5ep d6wejSp5MyYxGQSoaqBe yHyjBNA2c5UzFu41 A12fYAtyHLMvHENmCFFt SSBnuAolyu3gqC5jJi9+ GU6vl7zafu58yM73gMP+ LDTeJFF6rPwiTWcc BQKecW4iBKtgMoQ7FFSl CvPmcS65mFOtXLmdKx1e rGmquGtiJF3bFGMpuhwc c450AtIey6nhUNIk sNZtGAqwINU8J63ns7L6 PIVyKUUeNQF7cED8rO4m bGlnbjogbGVmdDsgdmVy fLqoGJurZCjyB804 IHRvcDsnPlBhdGllbnQg WpFwAKa3M3SkRyb9ELEy jLgrZT0agFDtMWjrWe2g mTzsvKxqMO2lGZRw vdktb653VdKqe0fkMBEt nPFxHHqbYXB7G87rb6W8 EGEaYBZmITE1fVR1vH9f bGlnbjogbGVmdDsg dzZcmWfdDBgkOFcfZ715 IHRvcDsnPkJpcnRoIERh eXN0EF48ZG08cKTcr2Q6 qVI6G6JoGOMagldi lktfeMS2IGVaCEYtuI98 Ow9bkLqeGd6oJWTsPDX3 HSRuzNQaV0KjpR2qYjFk ACFvUOAqQ4CvhTAz XNmfW413KFddFcU1YUYi zkJmH3CcHOSojMtbEqQ3 t8P0Et2VS7G1KL74GZ88 oEOat3X4lSJ7M9Cq OSPogiziqbhwkII0UHHh HLNpvY14Kj9vzKceZx0j EOYzFPK3QOTkcCMlZ2Dg fP5yWxXzHYIiHXMe E2PoyFRdEXptA231TBak GwL2JZWbgfAvV3XhXMKj rXbrZaW8r2F8Dt3UGXu1 VP25HX29oLFwf5D8 uQO1I0HxLOAelznuuxgj eEF4UUEdFQXfzG29Dp2g uGciEc8sBVJvVRD2SIGv xARhZ7MraF5oIxYp VFPpBGDtZ3QxjJLuEAfa N782LKhsQmR4ILOcttVm A6NpUWWsuMzfMvK9o7J8 Wf2RZJEpGW77TSK0 jQE2QA08CV67H5KoUwgz dGFibGU+PHRhYmxlIHdp ZHRoPScxMDAlJyBzdHls MO7wQt0cMJClOSXc oUgqmFIwSsFty6rcQBTu RQnqQR9ufQjrH8YhcUI7 NPXcz6r1Mo26T82dJ8Mc dXA+PWNmkEB6gMD9 hT8hAeKjOaK1ZBcoD660 GiLafNChPnshu6lcl8ur cNg2HsA6JSZkexEjoJhj PIJ1l8XeZw05Y71o IHdpZHRoPSIxNSUiIHZh eRgldo4sqL9aRd4+PGNv tST0pTG9tP2wDeBgJwZ1 LTwyU103JqTxzSDy Nsqho0dik7zzxHm5PbTu LBXrneMiwCoqUSO7q8Gp Gz73H8LagSspq8TzKou7 lk58qLEjm5T5sFE7 Y8VvXWVunkqwjTFcmUsi XJ1lCSIvhgxzGHPomU5d NCHlX5e5YsDuErP9JYek G6YailL7WLUozHIi ZTgcCPB2K83lr7S6PSIe MHWtLQE0bMA6zB0qxXzf bjogbGVmdDsgdmVydGlj WEtsGMlxW452JNHq pHzmUMTeuS4aVYYylXDr sJszCJ8oWNRlmjtuEdRX BslNFWQzUEBDYPHDRR3O KAO2V0HqBks0DTDd cYrhEK6uwGOsEXgaUl1s cTwgeAnbEH4iNUOyibbv FXVscJ6fHPBcpUDkgJkt WI8eXJEgeijgj437 GvAbKXP0DLUwdWOwX9Ug uO8zWlNkRCJkVADtD1Eo nHQiJOlzB769FTuuFtX1 ZYSuwnYeX2OsYBKv nFnhInT9n9I4Qn5zHj4t HD4vFSd8WB18HK50uJLs a1P4gDD6J0XnRYAuprcs jiflmJD7HRLqXLBv uL73tGFrQWmyWb3nw7W5 a153FEVaSBStmL05Vf2x uQudRRSfoXGWpH3dhqdm x8eskzkuYfYmOTId LIm2HIs2PGWjxRgmDcGq RGQ0NyE0QJI7zZGmxI2t jVfksjhqnW3tCgp+NDYg FFAyppX1W0ZqAxp6 BRXapNiaUQ2xfPZlREzq Tj3ehMvfjWasUU2xHNPr gcxoVEMdjQ1sQGJimBGe lDokQJ9tJZStcdkr s393OyAlSGI8QGClsQMq G4XigU0lDpUmYMDtAAGr B4SwgBHcLYgtK218AXwa LlZ9KOKcthEvM1Yu GCLyzMmtTpS0h1N3Nu3B QG0mxWW2K2FbEid4OSYw cSwjOF1avTXuOTsyXo0u tHopeAeaOF9mLFIh kzgkAIHgwI8nMYMxqTKt uLcnWB3kLFEcfumss192 KcFcEEX9PTLzvCJpW1Bu zE4mBxZmRQAjDMId T9FmxHDdXZgrF911XDki BtA4XGMhedEoO3OjXNQq vYzzEfA8f3V7Cr0VeZDx ZPMyOP25QO74AA26 D7EwYhpwbQIwkDD+PHRh YmxlIHdpZHRoPScxMDAl NnWmwQeoKU3uBm2lVTFu LWNvbGxhcHNlOiBj z1qqHKAoCIviCK6jwRab Y0SloCL9JAVfa2m5Pa18 R90sT2BpjKS+PGNvbCB3 lKD6vX7cKpHcDiT6 BXhhS150BfRduQJsFnri x6avg6xmzOp5DjKtVDOq kuRhfOtcWCG3y9KzNh05 X61fJTpqBEXoNVLs FIPvIZZnzQpmgp0dsE9i Ii8+YPCfeQX1vUO1zA6n PzScYpT3XFaiP453InKk pNJrKbgqQ79wI7Fs dXA+NTZrFuy8MBWkqPwx BE7vaBRbJXziOw4jWCE8 RiOcVjJqEBfzO2CoEBIp sfzlbgvdzDY4LUKf DQAaqO02Ai3voNkaUa5c HCEfRIO8ASFukAKwB2Zn wI9zFaBoOCEwVYJxM5Hf uRPpKDtuM297FBbl EtU4VURymyDlE2CeVXBd dPsbYzH6k9T1Xl3AuGbs jDAoIB9vEbOjHUl3J2Jr Cok1UIOkuHvuXI3b sUJxUDxqBl0tmWdnqWyu VU2pBLRpowamt582FuLt h0mpDQNvoGYtXMlmCMM5 S08bl1G3MDOpAGAv VSU3mEQ5rO6yfQoqlbgk bGVmdDsgdmVydGljYWwt ALrhL776HLKtxJdfVlDE Gza9M5RlBvw4XEVr tGwqGX9afGTzRByeOj6m uQpakQuoSJ1bBNDpomtz z824KsBes5hdPHWyaQXk TGnyXPA0P96yp8U2 OHXbWNHtQDK7zKL8lB1j bGlnbjogbGVmdDsgdmVy oUylSYlpCOveN834EGYj lQssCv5EGdx9Q0Gg Pfu4LGGhtCbmHO5urUEg ZZreFc3jiVkeyWdqPG0p THJaxjbrs098RtOmu9kl IDEwcHQgVGltZXM7 X14wx6S5SDHiXUAcBVE1 iZH2iE2qpLsixluccSZr dDsgdmVydGljYWwtYWxp B221FBAgdVwrPvYb eWVyOjwvdGQ+ZH88xi31 R1KmJwlhAva6SUKtNNE9 tEE9tX4uTYZhLZhmd0W5 iBZ1A8NgwkHfel5r b2xs (more content not included)... [facility] Coding Summary.on 05-26-2022 Coding Summary. CD:[id number] Gh0bWw+PGhlYWQ+PE1FV QPxL31shIXdxF8FY1uUJ E7BIPXFCJFRMF1MPO3ci TZ5LYwrE2WzcsTu HtsyuWVyMI77VYk4TTV4 qOwvROzsvY7ldCOoP8r6 QoXyBO95yB98PKsgKNDf BrU1MtExgcmwwVTf Y5stNfBxlMVzDkj+PHRh YmxlIHdpZHRoPScxMDAl CmRzmNqhUB1oKd9uLRUe LWNvbGxhcHNlOiBj v4peTKWoEKgxRZ8uiRfq U3HtjEX9KUQps7r7Te88 dHI+UBEjSZA6aSadSKgn v620OaPpw2dxIQO7 uFMyMJoeTLA7S56nn6P3 LTKoWIPtLYP0gYK6sH4x cJxojvmmV7MseBJrTdU7 LWF2hXTlqH8lrXlq wurcjP4aYny+Q36QTS9H LBLZVK5SBjf5J8EiTfyk dHI+PN84SBZhGI08pTNe eKWnw4nuhJr1ZlXc CDWtITZ2dGzwMJgya9Wc WSQcL79paNBba4L8KXBp bTxqaVJcXkXenXI5qZ9a CNzmullvn4chefxf Phlcg3jzpx21kC54M76n JWwmDONxRQK7WNGoCGGp oVhmxp9faI1cOp0+IDxj q3xjs2rboMu3FaWw YXAcabJmpSiiFJC8o8Oa Ki75Q7SzpDpnl4BnXte0 ec24pYAar8G1lBD9WClc VIOdmX0bHJmgBtV5 QYRaKsCukA04gXWsLYwq Dr1bgTcxoFxhZS2jHHNo nrgdCJOslS4gILLdeKWm dTmdKQ0rLGDozzac b408UzTvXAL8XOVfkRLq X5RndS9dTcLoYKCzFVXu D7SfgKTuIBttE282KIpy MpU3RZZcxpBsX2Ig SGMspSheXuH2d8J4On3B n5GoapnwINQ2XSozFMBs OlN4MnTfEpS1J9DcEta6 NESpuJgfQM9hR5Tv YREyulguaziinNR2JQHn WEDzfP38eBYiUXxhOx4o s0O4m698GPIcBDPmtO07 Ib4lrZweJERwmNWS xI6oqargf9srfflrBbYg DVKaQOw9QFp7KQUhkBfh MfPcUWU2HsO6OCE7gKHw wZ0joQdlpwmpkV8m Oyc+C98pvS3jMCA8GQQ9 dfpjDEDwsrIuEJ28OZ62 Z2AvByvqjGXwjWS+PGRp kpLscVysUZ9gHhJl q8snd8TaTDbdE8YaRLHr THfpByo8KGTjVQU0vKN2 jC8kCQUjPOanr2G3iEY0 M1ZccvUgek9pt3ak PPPfUVdzS98vfMSge1O1 BOShgWB4PQFirIxwFvFt cZ38Eun+IAPunJsav0Ba Ednqu1vjw3gdwWl9 IjMwJSIgdmFsaWduPSJ0 o1DoZj01K14tHVhkSNOf BRUxTZCrBSWzdLlczy3b eF8tEr8+PGNvbCB3 iNQ6fL5uANVoJzV8KYoc Z334PvXydKVzCzfaf2nu d4dudUp9LxXyZXJtsvGm qIzxJIK7k6OwPw97 O51pGQslAGGsFHJmOHMc HXOzpUtafu9qeH4vLo0+ EG7cl7irlw47sF49mPO+ CDFfNIZ9dDtcJPlc HGBhwO1oFEozQgI1PUVu ZvCxdH44jBXtXNtmLl0w tQqbaQksUJ0eFZQqvzyw a019DqSmz5vzMILc uEEqQKdzQLW7E96qo2L1 OCNqTOCxIYZ8kVL4vS4w bGlnbjogbGVmdDsgdmVy hQplKYctUBxuD363 IHRvcDsnPlBhdGllbnQg PdCjEOr6H3FwAom7MVIn cNinUD0ekWQvFIblDk9g jYprjHorVM5mNWBl jwteb580FgDei3ufDHCt hVDwQRkhFLP8B08qj3J3 MBQzPATuEIW8qLC5eP4a bGlnbjogbGVmdDsg esAlpCpvPLlxCQuwP006 IHRvcDsnPkJpcnRoIERh hGU9SM55BM41hHZzq7I4 yPL0B8OlQSJzbqub iriexOT5LJQbFOArmP88 Fg3fqQufZm0uNQNzNHP3 QUHbiTZqD6XkoN5hEfMr MAKyARLqK1OycPQm EYqpU714DLdzVnO0NCCy gjTeI5BxSJZftJanUrU4 c2S7Is3SF5J5VM45HR16 lRMvo3X4fAV1K8Dp WISimzouklmdtOV3MXCh GXBtdQ66Fh1mdBkaMu9q KNUjKIJ3XLWbkOCmI9Fi oG9vAeApTNBxRSGc A2HdpQNyBPfaE433ASpt OiE4LSEvuqMpG4TlNHAt fGnuRwV5j0O4Pw8JPXu3 QS58JW46eGVnk0K6 nCG3U1BhYPPzmdoueelv aKB7GXWaHYEzrX00Qn9c tGsnGj8bTKDwFYT3WKMa rPIgZ8MzrL3hRpMf SKWtQJVeM6DaeCPkKTgm Q119XXrbDkL9EWCisaZf U4HcTCFzpYhkAyK9n5P5 Mp6UXNByTD82KZS6 pIS0PG93RP65J2TcKhkl dGFibGU+PHRhYmxlIHdp ZHRoPScxMDAlJyBzdHls SN9xBe1oSWGuYXAu bUksjRNhKvWjw0njYEIh RKjrIZ6vgVzyF5HsdGA5 DJQta3b9Lx23J34wO1Qm dXA+DHBrwUL4vPC1 gW6fLnOyJnW5AAzkF169 EcGkqCAdMvefd0zom6hj kTi7XdT6AWPvtqTuuGjj KDJ9b1BjPg14M24s IHdpZHRoPSIxNSUiIHZh cJwnbz4esM0aYc4+PGNv qJR5cGD6oW6iCuLmInS3 AWshE536OaMwmNLk Ggwco9tni4mmeWc4LyAj FLYngjJfbTnaENF0a1Zm Si55V0IifNtnn7CvHtr9 lj09zIPqn1G3gVI5 Q1VuXQAdgagqoSYkcUif GZ3sDFKdhqyfDZCsvI5o ZLKiA5h0DnQtKzG5VRhy Y8KugnE2HSTivWZs HJfmWUY1V74ks7S0ASTv OVYkVEQ8uAP2qX6lzStr bjogbGVmdDsgdmVydGlj KFglYXhuR176GIVr iCszZUGwgH4fZFZkpFTn nTljQU4zHNKtdcvkNbMU WnlGVXLbJGPKTDQWST6L XFR3Z3LiQkc0LYVl pWgfBJ0jqNEiEZbkFj4y mGmxpTmpGT9fYMEuvsrp FHXanX9oAKCrxSFpkKey UB0iAUOikmyih778 FuOjKDN0OJOghPLaZ4Lm qN8vTzWfZBSqGRIvG4Yx bYQqVOcbD342CNwuZiD9 VYKzroQgJ7LbZRFs bLtfPjX0f3Y8Td5rFp3n TZ1uWEz1QE84YC82eWXs d6I9dFU6J0FaLOSbwzih puyrxDR8EERiFWNh xS64nSIaBLsbBv9do4O9 l274JJCeRWKczB03Qo3k aQtbQWHqoYINaF7rrisi t2onxuurGyCcMCYf VPi9RWo5ROGejGlbDoBb QZL5DjQ8REN7yDQlmW7k wDcrfztkdU6mZfp+NDYg QPJnsoP1X3PgVtq3 MSWcjCpbUD8huJGvTHau Hx2luNclsHgkCG4nBWRu dvcaXUQjfH8fCHZioYKw cCsnFP0dVOHptldu f918CuRlCHG3UBKhyCMm U8FhtS8rKsLwLWEvQMZp U7PhlENuQHzfR106YGpf HuC2LDStagKsZ5Th CSKuvYhnNnX1x9D9Wm4G RU5klSB4A9PxXok3IQBt cZykYG8frNQoCYojEb5w mZznoSwfVH3hSZDx wsjeWRTwdO7cANHndCTl qVtaMF1jVLPbufyxc394 LdUjJML7VEPdfCAhV3Vh bS2oTsZkPGNeWYDf E9RuvHEmCJqqQ694NRwg YyR1KDRnhtRxY2OjIWSj zMtzJaX7e0M8Hv6XpXIa IALbQJ96XK59DA89 T3UzQlbrdAGtyYM+PHRh YmxlIHdpZHRoPScxMDAl EkZlkEcuBF4rLb6aNOMk LWNvbGxhcHNlOiBj z5syRWNqKTtyFK2mhQqj M5KshDB6YXFul2y1Kb15 N23aV0ZmqEG+PGNvbCB3 oRM8xI9eIkQpLcF7 JKuvZ367PiZyjXItIaet k6iie1tlbDn5KvUcCKHd goXlbLykPBV1f2IuFe44 J48oUTwlUGLvCZSx CDEqLXDhlFnvkq5gfZ7r Ii8+IGVxdTO5bVH6oE9f YzKmPhA0ERdvZ873NrZt rAViZoebH46cQ7Xi dXA+NELqBgg1ACWzwEar KM5iyKOjECztBk6kXRZ3 IwLjUjQsJYjiG2JsTSCf kxqzhfhqgUT4VCPb ZPAwdF25Ul0jzAeqDt1p BQQsKKC1TLPadBEnG6Vj iU2yGmCdCSMeTUGxT2Xf vKGgKSqfD777FDom HvY2GELqnsFuC3GxHWBp mWljOaB6k8Y8Qw1UbZxz lYAkVR3zSpIjJKn4W6Ls Vbf7TSWdwVvqLE4r pYJiFLqgNg5qbWryeZfk MD9zVFQlnhzui821MqCe y3szDIZvgYZgFMytQBI9 I94zz8K0UQAeSJFe VDZ1lVF8fT4qoTbiuwua bGVmdDsgdmVydGljYWwt SXaoT230ZGCysSezWtMX Mzz7U0BuGgu8ADJa nJimYA6qcNImGQbdWe3w xPpjsTtuWZ6iXHIyjmfi e352FfZlx5xzNHVokARa JZxcCNU2A31kq3C9 IIYvZYWmELF3lIH3kQ9e bGlnbjogbGVmdDsgdmVy wNjfXMhiUMfxQ075VVUp dOcsIl9FAur7M1Kp Agr3QGQagIvfCW4lsUWg KPlnXd0lmSiziAkuXI1y EBKpyytvm714XhVww9jx IDEwcHQgVGltZXM7 O74ey8W0CIAeFPHcSKD3 yTW0dQ6abXbttztrlUKy dDsgdmVydGljYWwtYWxp H533QPRwmCtiBmEh eWVyOjwvdGQ+FL44jq26 A7FoNnzfCzo2YGLsDRG5 eXF2hI2oDNAbDKdha5I4 vIT4E2PqwsSuxg7j b2xs (more content not included)... Normal [facility] Consent for Treatmenton 05-09 Consent for Treatment [id number] #1.00CD:127 Normal [facility] US Breast Unilateral Lt Comp leteon [...] M.D. Transcribed by: MIKAYLA Technologist: DC, Normal [facility] Auto Diffon 05-22-2022 Basophils/100 WBC (Bld) 0.9 % Normal 0.0-2.0 [facility] Comment on above: Order Comment: Order Added by Discern Expert. Performed By: #### 2 [id number], [id number], [id number] ####[address] [address] Basophils/Leukocytes Auto (Bld) [Pure # fraction] 0.1 E9/L Normal 0.0-0.2 [facility] Comment on above: Order Comment: Order Added by Discern Expert. Performed By: #### 2 520573, [id number], [id number] ####[address] [address] Eosinophils/100 WBC (Bld) 1.7 % Normal 0.0-8.0 [facility] Comment on above: Order Comment: Order Added by Discern Expert. Performed By: #### 2 375316, [id number], [id number] ####[address] [address] Eosinophils/Leukocyte s Auto (Bld) [Pure # fraction] 0.1 E9/L Normal 0.0-0.5 [facility] Comment on above: Order Comment: Order Added by Discern Expert. Performed By: #### 2 654692, 4821124, 9396126 ####[address] [address] Lymphocytes/100 WBC (Bld) 29.7 % Normal 14.0-50.0 [facility] Comment on above: Order Comment: Order Added by Discern Expert. Performed By: #### 2 042792, 4862085, 6670905 ####[address] [address] Lymphocytes/Leukocyte s Auto (Bld) [Pure # fraction] 2.4 E9/L Normal 1.0-4.0 [facility] Comment on above: Order Comment: Order Added by Discern Expert. Performed By: #### 2 891966, 4669421, 6912568 ####[address] [address] Monocytes/100 WBC (Bld) 7.7 % Normal 4.0-14.0 [facility] Comment on above: Order Comment: Order Added by Discern Expert. Performed By: #### 2 135284, 3149600, 6194577 ####[address] [address] Monocytes/Leukocytes Auto (Bld) [Pure # fraction] 0.6 E9/L Normal 0.2-1.0 [facility] Comment on above: Order Comment: Order Added by Discern Expert. Performed By: #### 2 372318, 3190094, 3460046 ####[address] [address] Neutrophils/100 WBC (Bld) 60.0 % Normal 36.0-75.0 [facility] Comment on above: Order Comment: Order Added by Discern Expert. Performed By: #### 2 850460, 7127594, 6811880 ####[address] [address] Neutrophils/Leukocyte s Auto (Bld) [Pure # fraction] 4.8 E9/L Normal 2.0-7.5 [facility] Comment on above: Order Comment: Order Added by Discern Expert. Performed By: #### 2 612791, 6974892, 6548719 ####[address] [address] CBC w/ Auto Diffon 2 Erythrocyte distribution width (RBC) [Ratio] 13.2 % Normal 10.9-14.2 [facility] Comment on above: Performed By: #### 2 797208, 5344705, 1593390 ####[address] [address] Hematocrit (Bld) [Volume fraction] 44.5 % Normal 34.0-46.0 [facility] Comment on above: Performed By: #### 2 721409, 1252435, 7024404 ####[address] [address] Hemoglobin (Bld) [Mass/Vol] 14.5 g/dL Normal 12.0-16.0 [facility] Comment on above: Performed By: #### 2 510418, 5546656, 5095963 ####[address] [address] MCH (RBC) [Entitic mass] 29.1 pg Normal 27.0-34.0 [facility] Comment on above: Performed By: #### 2 079210, 1965418, 3301139 ####[address] [address] MCHC (RBC) [Mass/Vol] 32.5 g/dL Normal 31.4-36.0 [facility] Comment on above: Performed By: #### 2 835860, 8285718, 4709097 ####[address] [address] MCV (RBC) [Entitic vol] 89.4 fL Normal 80.0-100.0 [facility] Comment on above: Performed By: #### 2 821985, 7873573, 0442362 ####[address] [address] Platelet mean volume (Bld) [Entitic vol] 9.9 fL Normal 6.4-10.8 [facility] Comment on above: Performed By: #### 2 820758, 0216941, 5586050 ####[address] [address] Platelets (Bld) [#/Vol] 242.0 E9/L Normal 150.0-500.0 [facility] Comment on above: Performed By: #### 2 406759, 6161280, 9908168 ####[address] [address] RBC (Bld) [#/Vol] 5.0 E12/L Normal 4.3-5.9 [facility] Comment on above: Performed By: #### 2 844625, 2292478, 0432576 ####[facility] [address] [place] [address] WBC corrected for nucl RBC Auto (Bld) [#/Vol] 8.0 E9/L Normal 4.0-11.0 [facility] Comment on above: Performed By: #### 2 936665, 6116735, 9412999 ####[facility] [address] [place] [address] CHEMISTRYOrdered By: SYSTEM SYSTEM on 05-22-2022 Cholesterol [...] Treatmenton 05-09 Consent for Treatment [id number] 21 [id number] #1.00CD:127 Normal [facility] HEMATOLOGYOrdered By: SYSTEM SYSTEM on 05-22-2022 [...] 8.0 E9/L Normal 4.0 - 11.0 E9/L [facility] [place]eAuto[place] Lipid Panelon 05-22-2022 Cholesterol [Mass/Vol] 232 mg/dL High 120-200 [facility] Comment on above: Performed By: #### 2 986923, 4061387, 4620113 ####[facility] [address] [place] [address] Cholesterol in HDL [Mass/Vol] 52 mg/dL Invalid Interpretation Code [facility] Comment on above: Result Comment: HDL > or equal to 60 mg/dL: Low cardiovascular risk HDL < 40 mg/dL : High cardiovascular risk Performed By: #### 2 834266, 7516212, 1320299 ####[facility] [address] [place] [address] Cholesterol in LDL [Mass/Vol] 152 mg/dL High <=129 [facility] Comment on above: Performed By: #### 2 999925, 3657551, 1275946 ####[facility] [address] [place] [address] Cholesterol in VLDL [Mass/Vol] 21 mg/dL Normal 7-40 [facility] Comment on above: Performed By: #### 2 708849, 1617211, 1770644 ####[facility] [address] [place] [address] Triglyceride [Mass/Vol] 106 mg/dL Normal <=149 [facility] Comment on above: Performed By: #### 2 375837, 3446890, 0536479 ####[facility] [address] [place] [address] Physician Orderon 05-22-2022 Physician Order [id number] 0#1.00CD:127 Normal [facility] Coding Summary.on 05-21-2022 Coding Summary. CD:[id number] Gh0bWw+PGhlYWQ+PE1FV NLmH87aaTIufX6CA2aXV J3PAGHJPXKYIC6MFU6qg LI1ZHymA9ZgtcCs LwkecZVyZH93SYh5HOR5 kZskKNqymU5glNIoY8p2 IwFqLH22rZ55GEvmKEZl XfE6AoFxgrtssXDx R4hqDaKyePDpDov+PHRh YmxlIHdpZHRoPScxMDAl YmSufMzqJG0oPx5bLZPq LWNvbGxhcHNlOiBj s6fvQACrZFjiSV3cqOkj P0SfyGC7ZUKvf7s2Vi83 dHI+OTNaHJF9fDvtVBfa y700YaFjc5meUZW8 xIOcIVvfXPL6C22bw7H4 XKRdZSZxBYN2jPD4tN6c dJdvxxhjJ3XetCNxVcM8 STK0vCMevY9erZjh qvdrbA4nUcu+K56MYD3Z FYGTUF9JIzq1U0XvSfoi dHI+CN28RDMkXG07lKPj zDNgn4reyOm1YxHh OEAwJBW4jMomCGydy8Jk LXPeT07bjKLox1P3HDUn tKfvmBDyIzRhfWD7xH3u SNacrorap4suyfwr Kyxoa9tbvx86xO03B46a TWjjJHRsWZU5JWHvVKTu jNyduh5bdN5rGh8+IDxj l4aym0jxvZh3YeNs TXAmxcOksUoaJKB8u0Mq Kd99D5XyhSgzt1BnYea6 dp16wSQhb8A3nTM9CAhr LUNmqB7oZKplKzB4 IXIdRfByyX07gJQhDZlp Mn5ywFiruLjwPD1hEXXc sxazCQPciN2aXHVctBEk nLkiBN5cHXNbmnos a556AnZiKGC9ASKirWNd T5OldX4yNcBjKXGlVDWj J9AveZCvIAluZ204SDzd WhW9SEBoupQpZ4Gb CYHzqLqrCeC3r4D3Fy7A g6MmoyzlKWS7ZPmaXZWt RaPbMdBkWzK8I8TnVbd6 IMBrkMxcYA0wX5Kw ZWCuwimxjwnqxLC1GBWa EVCyiZ28rMEsQCnkGr5n g2Y7u638YMKoFUKbuL41 Hp6ueCpjDMLsqMMI bR8dmjiyu6lcjlvqBvQh KUCmSKd4BLf8RHUvqTjg UuTvQUG5EuI9BAP3iLVl dJ4guDxopacvkK6v Oyc+L13efK7cHGM6XFY3 kgacCSGmlgZrDP82BV14 Y2AxVpsnyGTscRP+PGRp vtJylWmnOJ6qGvUv w4ssk7TbXCtjZ6XcKVEl ODgcImk1HRStKPY8qEK8 tH0lXDBcVKxwc9C0hXO4 X4JcjmRzck2zw8ah LZVcYBjiA70uaERro1D9 NRBfyIM3MUKncKrlTbCx mP83Ckd+UMMtbZcio4Tl Hhegs1khv1yaeOr4 IjMwJSIgdmFsaWduPSJ0 d3RsAi45P70dYZisLTYo JOZeYBNbMTZzqPuoul7n lO6yIm8+PGNvbCB3 qHN5jZ1wBJVwZtH8GYsh T346ZsBgiIDgTgsqw5gm w3lakLn2ZcSeMTHnagGm jSmsQTO6b2YfBu74 I69kPNckPMFqBXVxAYQj YXZohVvqcn7scV7jSe4+ GX6qv2jnkw14yZ52xEE+ PHPrDRH7mRnhGAsd LYGowW4jDWlwHxK6RQXh XaCepY64yMFaTVnpAl2a yFkoeQohDA2jQWSodssf b033RrVfj0fwODXj bGUxFIzwTDY2X18bp2U3 SXMoWMSiKAT6gPE9sV5n bGlnbjogbGVmdDsgdmVy vHhgIDdpFUemZ490 IHRvcDsnPlBhdGllbnQg MtTsHKv5L4IoCwz0EFRb wMtrTO7tcZUiDZvbLr2d pBalxWvgHA7dUKFy xcyag188GfQwp2nxJTOw vFOuFMeaFWV4W27av4I1 GYUsDQJnCKB5yMS3qS6l bGlnbjogbGVmdDsg pqWxeLksDMzwFBewK281 IHRvcDsnPkJpcnRoIERh jLC2OY33SL89nXNxj7H3 wEU6D2VeOYZavdyg xdpwxCE0RAJoSNBgqX81 Oj3hqPtlQo8aJWBcYCA9 XQSacWFkE7LeaP1bMsFo VNIwEQThO0TgxHCn LRmcJ084BZiiChR4AQKf anMrC3HpHNMooLdiCbZ4 c2G4Zc4LG5B0KZ01RG95 gBHnv7I3oCS8J0Ov VPYzssukwgsalAE4RVJt JOIzjY07Dx0yxUrxVo9h CVCdYXS3YPVhfUYzA1In pJ0mRmMoFIYbGFNv L6UnkULxEQdxP418YBoz IaM1GDTssePkG0LbSXLk nBmzBpM8h9B3Oj4TNAp9 ZP40YI01gKIqg3Z7 oAW9L4AaKAQertkfmvet hAO7IZIiTXZkhQ11Bw1v gJywKv9vWMDiLYJ2HSLs aSQaJ1QcmC4fSrIs IHBtGJAiW8IisCQwHHzy T438BVnsGgL9CNApfhJq C1AiSBUuiXujVhF8k9Z4 Yb3KYCTwWJ51CEB6 vMO7LI44YM44Q7HkTaht dGFibGU+PHRhYmxlIHdp ZHRoPScxMDAlJyBzdHls CI1cCs0hGKKxZGKw pRyquZCsFoAez4mrUUIf JYfdNT9zlDgiU7CniTR4 JRBsy9e1Kp93C95aD8Wf dXA+WKUisVI2gGF7 zO9vBlZpHvI0RHhxH524 TtPknYMwGycah5qry0zr fXk8GrP5LMXxojXexZfw BOC6d5FdEu38H30k IHdpZHRoPSIxNSUiIHZh oLsytj1fiY8tBf2+PGNv oVK9eSK3dY1oIsFzEdC7 HXwcZ236QrYkhKJv Yyzce5pth4kjdUl0VqRd ZKAhtuMsbYimAGR7l2Ep Yh94L3HdbJdsq4NrHps8 th16wOMmv5J2wFE9 A7ZbMRWzyamgzTArrWnw VL0bVDYdqmupJVItbT5s OAWiW1w5DwVoUvN3DPmo L1XftvJ1FKLyaPTd BTycBAH0W66ma2R0PWCb NNJoIFQ2tPJ4aW2uwAqg bjogbGVmdDsgdmVydGlj EWwiKDitF091UWAs yPhmIPVncP2ePEFikEJb qJvaHI6tRBZkzdfcXsQR SgqWMUHlVLWARWBGCE5T OXH2Q8RpYqg1MOAx qBogHD3fhBBeXImcMt6e rAjprJqdFK5gKIDpiflz DYKcyH4dXXXytWJzxMyn SY7rOKGsozetz480 DsOzUMB2WCPpzBWhM5Xy yH7pNoDdLYBmVKAcV4Bq tBYtGZkzR024VNvjQdH6 MIDjskFsZ5JbRGDu cAkhVwH9o3U5Sf6aAs9k PH5mDNs0ZH88NN41iVJf f8Y9oFU2T9HdRNThapvc ehojvXQ2YZNuMFGb xN66cDHvJEsxMs8os3G5 k734VYKbPBPstE01Xe8b lFeuUHOgkANGsC9ecton q4qeyrvuWfPtKNPa KVy4ZPp9BBHldOwvZvLx ZBG5RvU9YYR7vHCqrP2r fUbmwyonaQ3eYjt+NDYg SIKnouI8R7MnPni1 TRQwaGqcFC5fhZRlDWbd Rg6ruWksuYcuFA2gTRJk wjgyRDMqnQ4eYVEudXOu gTruHR1vDJJjvsgv x750KgLiOVW8KWKivTRe D7DxhY8mOyZtWKOiBMEk X8YdjMFeNWvrP979UGpr YnZ6NVDzqzUfT7Io MWGylXfgHmH3v8H4Pz7G ZD6ykGB7S4VxCad6VOWs uLtcQN7slFYaOXcyPz7y wIztuSbgLW7lWWJg gzenKFGoqJ1cVFTvjIBv fWxqEA9oNCVjynejv270 YfWwMJX2AIWiyMEvZ9Gg hG9cZuIgIYRcDOWl R1XyjUGuYRacT764BZct AeZ0VGHqfpKcB4FyJRWd vSzcZcI0d7E1As6TsGZx FKHaYJ13ZB84TB14 F3OyExidpFMxvTB+PHRh YmxlIHdpZHRoPScxMDAl CvIgcAygMU3iSy4cPHOl LWNvbGxhcHNlOiBj n7jsIUQlXEfcEH7tkHch W4BrpVY7WQDqj4w1Ee93 O46wE4TmnCT+PGNvbCB3 eCF0iQ7zZiQtRlJ9 MSttO614AyMggSPsDoux p8byg8rhhNf0NbBsRWAo jdAtcSsqCRB2w9MnSt95 Q97aGGyrQEBwWUJl OCDyDMGdwPotkr6jsM0v Ii8+ETHehBR6uUH0zV2y VtQnWuM3VCoeR651EaLg wLBaHtmuE37iW9Cw dXA+AORtPmc5KKSdtDfb OO8jzXUdAApnLo4yBMU8 BhDyXvHgAHiaY0RuQOSd ieldnzmzkWK6PTQx AVXguL73Hz3oyZioZo0g SGNkKFQ4QOMxpLLdK1Si aD6sJzWhZYCxEHWeU4Qd bWErVUwvH066HLtj VqF4CNGkzkQrL0DdHLXq aJgwTdM8t0U8Un4FjNww tATgGX5uMxNeVSs9F7Kb Jnj0DPWpfLszUM2q sGTvPYeqYt7gcKwwzXza JL4uRPOkqeyap222JuZm t0htTBBgkJDpSWvlOQI6 B23ze8J6LVCkJPHk YEW1vDF7oI9zlBawokeq bGVmdDsgdmVydGljYWwt JCxcI005QFBbkLrsTcHS Lwy3M0OjRrs0YFBw vIcqZS8wbWAxKTtyMv0e gWmapJsdMR4lMGTbvglc o556WgOde9oeBUDclABu LUwhTIW5Y32us5L9 FNEkKDCmPMN8aBJ7jX2p bGlnbjogbGVmdDsgdmVy fCjkOLvlBVliN409TRYe vJjhUo4EGnx9I5Ry Oxj4IZCptHdeML3weNIg GAjfFm8afCdwgQvzEN4f GYMkzclgf864CdMdl5vv IDEwcHQgVGltZXM7 M27qw2C7IMNbOJEuBDC6 uQC3eS8nuWsoougatVLk dDsgdmVydGljYWwtYWxp D717MUCxaUifBnSs eWVyOjwvdGQ+RY91lf36 B7IaWhepBov5HJBuFTT2 lSE7jH5qDDFbUPjsf7K0 rYW7Y7HweqWcyp2f b2xs (more content not included)... [facility] Physician Orderon 05-20-2022 Physician Order [id number] #1.00CD:127 [facility] [place] Mamm Screen w/CAD if perf [...] IS VERY IMPORTANT TO YOUR HEALTH. THE [employer] GUIDELINES RECOMMEND THAT WOMEN 40 [...] additional imaging evaluation Recommendation: Additional projections [facility] Consent for Treatmenton Consent for Treatment [id number] #1.00CD:127 [facility] Coding Summary.on 05-06-2022 Coding Summary. CD:[id number] Gh0bWw+PGhlYWQ+PE1FV GVpD45ysFVdbF0LC7nYU B4PLREUHEUOJF4SMC4lv OJ1FPsiA7XeouIw WvowiFOwVL84CNd0VUU0 jWsuQYaouU7kaHAoB3n1 CpSmFZ27oA68DCmmFRKm JcI6ZaIezqblrAKz L5hiKlJxlCMbXxh+PHRh YmxlIHdpZHRoPScxMDAl MzMmgVtfMO7pMw9xMXGn LWNvbGxhcHNlOiBj c7uzEZQvKUmuIX5bkDcz D5FbjDI8IDHtc0h3Ld56 dHI+TUAzPAG3vApgCJaw e677WeRqj2pnKFS7 nHAtAPivBGE3M08sq5V9 AMYwLLZvGJF8vHH8zV0b wJptbptaK6UbmSTvCbM9 KDB1uFOnnD2mlPde ecybiD2nGal+M46LOR4D IGWRKZ9RUnh0Z7SaYbiq dHI+NM75WSOiZV78fQKh cJXfm9hciSg1WkMv XFLfRBQ3zHcrUKgsj5Tq AUYfY92gtBCls9K6YSFm aDaroURyGpFflVU2qT9l FWjpjnsmb7dengps Skxed2zjkj63vL27V89i HWmkZKUuCZU3JNHmLYIp kKsutk7xnE8zYn1+IDxj k7nkp4vusIl7HaZs JRWvuiJxjGylPQF6q1Xm Fh50J1WoyHpzu1TpDfs2 xx43uVTcr9D0aWU3KDrz WHDikJ4bNSosMoJ1 MDZbBfPojI10uMWsGGbm Em5auDoklUtwET2pLBEy txtbVYTeqF7wETXonMRc kLypEF2yVKDhfcbe g841JjUyOKG7BPRnkOHf C2XoeM8iPzDsXCVzFEYu W5QwtVScOSqtA012TDki NvS4YKRygmZsH9Lo WOZguUufZwQ3n9F7Ao9U p7ZiweoxVAR4ETwpSREo GoF0DlTdPwU5M2WxHeh7 SHOmxOnoLM3yJ6Ps PAHmpogecbqzuBP1MJVj JLAdnK63pJYmBSaaPx6z b7E3p521PSFtKLVisT58 Un2bmCjqDZWqhNTS gV6vfhawm4opklhrLiQr LDVrDZp0LWc9XQNtgTer QgFkEYR8SkS4SJD1lEHj lD4cpQlosxzlfT7g Oyc+B87wlS1fTRG8JEF3 bovwWRTyveKwXE78LM50 E8OrNccycQMviNJ+PGRp ieIwqLsnAJ4gWmPr n0cez6ZbXIowT6SlJTYy KHgtGac2KWEmDVU4eQG9 iZ4hHGEjNOpsi1W0gMU2 H6NpryUtcf6od7nh QIYkRPveA90ikWDna0K2 SYSzvVS8HIQdyOvaZuWk yA38Evj+BQKiaIetf1Zj Xdgmz7wzs7qvgFu8 IjMwJSIgdmFsaWduPSJ0 i3PmTs91V70aVBhfPWLd KKGvNNGjIIPgrXsllz4t nJ5bXn7+PGNvbCB3 fVD2vH0rKBQwNgP9EHsz D758LzEebHHwSwscd1tm r8bqwCx4VfXcYBGyjtAe vOpeYHX7i7ZjMe62 M38uDRsmMZSvAZAkNTMz DLBuvYjvbe9jdM7sYm6+ SA1nq8tdrq45tI34qWA+ OMNcVEJ7zBwxEIet RTBagC8jKTliJuJ5WJEg QmXpyN30qQDvGEpmHk3s wSbreQqzJI6iKLXhurrd r700OfMvn8eoTWEx mFLdXKpcTBL2X18zu5H0 DUVcHSEfTTC2sKW0iA5g bGlnbjogbGVmdDsgdmVy gFbbPFrkXPgkT408 IHRvcDsnPlBhdGllbnQg JoJaLCz1G8CoFqe3PLJm aXjnWZ5kgNNtOUstLz4t vJlgqRomEG1eHTQg ifych420YnAep3vuPJWj cRTvZZcsSKM6W65bi4O1 FZMqRHHzZBW3mXB6cF1e bGlnbjogbGVmdDsg yoIdcIwlHCwdRLmcT029 IHRvcDsnPkJpcnRoIERh cWQ1WU58WI26gNFwx3G4 cIM9L7NmAHEhvfeb dqhuoJA5DRFoWGZvvL09 Cn2dlFhzNx1gGKClEAF7 GRRshPXoJ2OizW3dGfDc FOPnZHPhV9MoyKEd UYsqI552LJjgXhO9FYBu kyFdU7XzIBEmeJkoDhO9 x7F5Bl6JA5N6YB16CS66 sSSkw1M9rXN5N1Ag MHZmuthlsenniSD9GJJy UNFeqP15Xc4vbDzlXy4d RLPlPIQ6BETbjTRlY8Wi iL8vReTjZGVdSGUr H8QuiFKdPNcpC116YOpm TgH6QQBonnCaY6EqXARn qTzjMbM7t9J3Zb8SFCo8 QE79DI62nJFqf6H1 gVA3C5MxZJFesgsfpwiv aWB9NOQgHKUczT96Cq1h tAruKv7wKAFuLKV4PFDd oZLbM2QmpN8cXhHy XYYrYFCgD1VdgOBuTRdw O722FZfcPyK2WVFdblFj G9FfMIZgnXtrEuE0q1V3 Hq9EJDUhEA42HRA2 oXP4VE43CI31F3YgJawk dGFibGU+PHRhYmxlIHdp ZHRoPScxMDAlJyBzdHls EM6lAk5lZFNeKUYd yTxdeCTdFdWjo3lwXVOo UMgpGO1ksFndO6BgxFL0 FWJtr3h9Fl31F40eF6Tf dXA+MNAipJL9dSR4 fB7xUtCuXaG5TGjvX444 MsYtaRXpBjgbd4nyt0ld cSb2HfO9PSSkisGriDmf GXR7h5BuCn22Y58v IHdpZHRoPSIxNSUiIHZh bHnyho9qzT8iDn3+PGNv gAI3oPW3pY1jRsEpJdW0 DDbrC738RiNtwAAd Txqgu5zvx1cusIf2IqUb DKSogbDfpNrsBFT0y5Kb Un79S1UuqXbwe8TyFmm8 vk36uHVvz7N9gMC3 N6BrWCWxkqphnTCzjGsf WJ4cYQEflgbaYABhjT9q EWNqM2e3BrAhMwG6XHgr B6MrdpO1XJWhmQKa BAxyGTF0R19ym2C5LAPv DNXoCOY4gFQ5mM8pkGtv bjogbGVmdDsgdmVydGlj VHstDGraX791VKRr jHtyCINhhE2oDDHfxUOb hTcxLP7kGNGyubthAnGI SrdDKZXbSRJWWXYMWH3E UOJ9V5PaRsy7GOZl oXbcXV9zrWVjOBpdKa7l kWftuSskBQ5nOGQsciby GTNfwF6bKXHriLSwqWur LA5cEUIovigsd090 XdDjPUK1IONpeUZjB2Di eE1dRmVjHABaJMIsF4Vf lJYuMGkmE191BDxoCaN8 YXMmioZiA3OuUARt eQiiLcF5l3O3Hn9wAw5p YK3bXHf9BG59SH09hKHy u4L8dSS4D9BbMFNzbyzo prulpZV4GYXmISZq nJ06vTPmVLveNu1gz3C8 w742GFJvYGThoI16Yb2y jPrvGPHytXTHiI6ecldv t3lsckeqWvZuFXTq QOd5VDp0WBEfdXihVzCt QYM2SrV2NRV4yGCshH6x xZmqsghaiH0dMfs+NDYg BOXtdgI6B7RtJfu7 YWJxsVhbKN2wvKQlTKam Sy1huGobiZpkYS6cIAXk kvtlMKJfzW7nFJAjnRJu oOkcIY3gXCScmzdk e759IsZqKVI0WVRuwFQp O4AwsB5yCdGpELKyKPAm E9DcvBAiGDgpG072XOis GwS0DMWbcnHwK9Xa ZFRbrXrsGvY2n6A4Yb5A FS9lfBU0H1YmWmp4VRDc vOwlNJ6phZUxILzxAl2v lPngmIqjLM5nPVNg rrjkLGHovS6oWLSwfAMj iXfjDJ0eSUOrfaasg295 ZfJpTTI1NRVkbTUjF9Jd sQ1uMxXcVNRjNDOf U7IahMQmFJqeI256GJdb CqT8RHAgxvEnW8AhQGMz oMacUkJ8x3J4Iu5YtUIq QJVwRK01LB61ME17 V1UbDcsnfZYwsSB+PHRh YmxlIHdpZHRoPScxMDAl RnCbcMadHY3yAh1pHDZv LWNvbGxhcHNlOiBj t6ciOZYkREgwFE5igBuq C8YahNB5LLDuw2p0Or14 K64pT9FtbIR+PGNvbCB3 dDE9cI7hUqGcWwN1 VSwcI577ZsSupTIzLktb y0wvy7xkrGu9LpXtOOXw jjPczSpzJZL6z7OeYb44 A21kPQxnZULxPMWm ZJHuJZPtgTwayt1owJ5x Ii8+HIBdlNN0sOI8rF7a ZzWsSeH6SQuaB732XxBx qIHdYssvW87dA8Kc dXA+WMOiBms3WMCqeIvi HJ7laZBtUPsoHv4mMCX9 IvAgElBjIMvnG2VuDTCp jsouzerbcXW2NVRg CPHnvD08Fj1whQzbDf3s HJMvPEP2XSMrkXEnP8Xd nD6mXnKrDISiMQFpC4Ya lGPsHLsqM389DZkv JtC7OUHkayMfI5XqHLIm kUgwQmF0r8H7Ec1MoGpo cWEhVE0cSpYvWHr3K4Ek Svc2EKXuvNchWX1o pVXxMUkmQb1agIichQxb NS4vAUXtfxwcv217MsDz z4kmODAswCDmFMqhQTH9 L41sk5Z3DYUwDAQc TBE3kGJ8tW1ezSpnqxiw bGVmdDsgdmVydGljYWwt TOumS803SVLwcFerDyAW Evz0I1LjFlt5DBTi uDikRY7jgADxVShkPy4f wOnvjMnqZB3iEYYkbuua d736MiGts2fcEOUfdIBw OFsgALY7Q54hl3U2 OQEuGSQtBSX1tKX4pM1l bGlnbjogbGVmdDsgdmVy dVkeXNdqGAeaV220YZVa uNuwPo0HXxf8A7Co Cin8UXYptBboPS5hgUEh IYgwNm7vwJawmOcyCF6b SKJdkjirq891YuVqf1ab IDEwcHQgVGltZXM7 X12rj4Y8CGBjGKCyQTD3 aJA4rG4raTnvnegxsWCk dDsgdmVydGljYWwtYWxp E384AOKguPurSlAn eWVyOjwvdGQ+OA11gw94 V9GsFcmtErk0ZOYpCAD5 uXJ9kL2nCUIwREffw7S5 xSE8W8UiaiTvbk1j b2xs (more content not included)... 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 Otherwise unremarkable neck CT. Normal [facility] ALLIED HEALTHon 12-31-2019 ALLIED HEALTH HNO ID: [id number] Author: Delvis Reyes (Tech) Service: ? Author Type: Manager Of Planning Type: Allied Health Filed: 12/31/2019 2:33 PM [...] MR; Exam(s) Completed: Head: Cranial Nerve, [place] MRA SIGNATURE: Delvis Reyes, RT Phoebe PATIENT NAME: Thaddeus Scriver DATE: December 31, 2019 TIME: 2:32 PM [facility] MRA BRAIN WO IVCONon 020 MRA BRAIN WO IVCON * * *Final Report* * * DATE OF EXAM: Dec 31 2019 2:34PM [facility] 0272 - MRA BRAIN WO IVCON / PROCEDURE REASON: Cranial neuralgia * * * * Physician Interpretation * * * * EXAMINATION: MRI BRAIN WO/W IVCON, MRA BRAIN WO IVCON HISTORY: Cranial neuralgia TECHNIQUE: Noncontrast MRI brain protocol including diffusion and CISS sequences and post contrast images. Intracranial 3D jldp-ol-yjukna MRA with 2D multiplanar and 3D maximum [...] or skull base. Intracranial vessels are patent. Medical Office Asst: TRAVIS Transcribe Date/Time: Dec 31 2019 2:40P Dictated by : CAROL MCGEE MD This examination was interpreted and the report reviewed and electronically signed by: KELLY FITZPATRICK MD on Dec 31 2019 3:52PM EST [id number] [facility] MRI BRAIN WO/W IVCONon 12-30 MRI BRAIN WO/W IVCON * * *Final Report* * * DATE OF EXAM: Dec 31 2019 2:34PM [facility] 0295 - MRI BRAIN WO/W IVCON / PROCEDURE REASON: Cranial neuralgia * * * * Physician Interpretation * * * * EXAMINATION: MRI BRAIN WO/W IVCON, MRA BRAIN WO IVCON HISTORY: Cranial neuralgia TECHNIQUE: Noncontrast MRI brain protocol including diffusion and CISS sequences and post contrast images. Intracranial 3D rvez-kz-vwlalk MRA with 2D multiplanar and 3D maximum [...] or skull base. Intracranial vessels are patent. Medical Office Asst: PSCB Transcribe Date/Time: Dec 31 2019 2:40P Dictated by : CAROL MCGEE MD This examination was interpreted and the report reviewed and electronically signed by: KELLY FITZPATRICK MD on Dec 31 2019 3:52PM EST [id number] [facility] PROGRESSon 12-07-2019 PROGRESS HNO ID: [id number] Author: Alba Johns Service: ? Author Type: [...] DATE: December 07, 2019 TIME: 7:56 AM [facility] Vital Signs Date Time Vital Sign Value Performing Clinician Faci [facility] 07-15-2023 13:32-0500 Body mass index (BMI) [Ratio] 32.52 kg/m2 Jose Katty DO Work Phone: [facility] 07-15-2023 13:32-0500 Body weight 80.65 kg Jose Katty DO Work Phone: [facility] 07-15-2023 13:32-0500 Diastolic blood pressure 84 mm[Hg] Jose Katty DO Work Phone: [facility] 07-15-2023 13:32-0500 Systolic blood pressure 122 mm[Hg] Jose Katty DO Work Phone: [facility] 04-25-2023 09:55-0500 Diastolic blood pressure 91 mm[Hg] Guillermo Mueller [facility] 04-25-2023 09:55-0500 Heart rate 66 /min Guillermo Mueller [facility] 04-25-2023 09:55-0500 Systolic blood pressure 146 mm[Hg] Guillermo Mueller [facility] Encounters Encounter Date Encounter Type Care Provider Facility Start: 07-29-2023 End: 07-29-2023 ambulatory Reagan Ryan Facility:[facility] Start: 07-29-2023 End: 07-29-2023 ambulatory MD Reagan Ryan Work Phone: [facility] Work Phone: Start: 07-29-2023 End: 07-29-2023 Departed Referred MD Reagan Ryan Work Phone: [facility] Start: 07-15-2023 End: 07-15-2023 ambulatory JOSE SCHAEFERO Not Available Start: 07-15-2023 End: 07-15-2023 Office outpatient new 20 minutes Jose Alaniz DO Work Phone: [facility] Comment on above: Mass of left breast, unspecified quadrant Start: 05-06-2023 ambulatory Guillermo Mueller Facilit y:[facility] Start: 04-25-2023 End: 04-26-2023 ambulatory Guillermo Mueller Facility:[facility] Start: 04-25-2023 End: 04-25-2023 Patient encounter procedure Guillermo Mueller [facility] [place] Start: 04-17-2023 End: 04-18-2023 ambulatory Oneida Bahena [place] Start: 04-17-2023 End: 04-17-2023 Patient encounter procedure Oneida Bahena [facility] Start: 05-23-2022 End: 05-24-2022 ambulatory Jalen Matthews [place] [place] Start: 05-23-2022 End: 05-23-2022 Patient encounter procedure Jalen Matthews [facility] Start: 05-22-2022 End: 05-23-2022 ambulatory Jalen Matthews [place] Start: 05-22-2022 End: 05-22-2022 Patient encounter procedure Jalen Matthews [facility] Start: 05-16-2022 End: 05-17-2022 ambulatory Jalen Matthews [place] [place] [place] Start: 05-01-2022 End: 05-01-2022 Patient encounter procedure Jalen Matthews [facility] Start: 11-21-2020 ambulatory SELF SELF Facility:[facility] Start: 11-10-2020 ambulatory ANNA GREEN Facility :[facility] Start: 10-13-2020 ambulatory KEVIN VELÁZQUEZ Facility: [facility] Start: 10-13-2020 ambulatory KEVIN VELÁZQUEZ Facility: [facility] Start: 09-25-2020 ambulatory KEVIN VELÁZQUEZ Facility: [facility] Start: 09-12-2020 ambulatory KEVIN VELÁZQUEZ Facility: [facility] Procedures Date Procedure Procedure Detail Performing Clinician [...] unspecified quadrant Expected: 07/15/2023 (Approximate), Expires: 09/12/2024 [facility] Work Phone: Comment on above: Expected: 07/15/2023 (Approximate), Expires: 09/12/2024 Immunizations Immunization Date Immunization Notes Care Provider Yomaira rojas 05-29-2012 tetanus toxoid, reduced diphtheria toxoid, and acellular pertussis vaccine, adsorbed Jalen Matthews [facility] Comment on above: Reason for Medicatio n: Other (see comment) NEGATED: Highlighted row has not occurred!04-25-2023 SARS-CoV-2 mRNA (tozinameran 5y-11y) vaccine Guillermo Mueller [facility] [place] NEGATED: Highlighted row has not occurred!04-25-2023 influenza virus vaccine, unspecified formulation Guillermo Mueller [facility] [place] Payers Date Payer Category Payer Self-pay [id number] 2022 Medicaid [employer] [place] [id number] 2022-Present [address] [place] [address] [id number] 2022 Medicaid [id number] 2020 Medicaid [id number] 1975 Unknown [id number] 1975 Unknown [id number] 2.16.840.1.028127.3.579.2.594 1975 Unknown [id number] 2.16.840.1.355880.3.579.2.594 1975 Unknown [id number] 2.16.840.1.097550.3.579.2.594 1975 Unknown [id number] 2.16.840.1.785236.3.579.2.594 1975 Unknown [id number] 2.16.840.1.902786.3.579.2.594 1975 Unknown [id number] 2.16.840.1.687770.3.579.2.727 1975 Unknown [id number] 2.16.840.1.606276.3.579.2.727 1975 Unknown [id number] 2.16.840.1.138269.3.579.2.727 1975 Unknown [id number] 2.16.840.1.589748.3.579.2.727 1975 Unknown [id number] 2.16.840.1.854547.3.579.2.727 1975 Unknown [id number] 2.16.840.1.946264.3.579.2.727 1975 Unknown [id number] 2.16.840.1.383331.3.579.2.1259 Unknown Yanni BC/BS [id number] Unknown [id number] Social History Date Type Detail Facility Tobacco smoking status [facility] Start: 06-24-2023 Sex Assigned At Female [facility] Start: 04-25-2023 Tobacco smoking status Heavy tobacco smoker (finding) [facility] Start: 06-24-2023 Tobacco smoking status NHIS Smokes tobacco daily [facility] History of tobacco use Cigarette Smoker [facility] Start: 06-24-2023 Cigarettes smoked current (pack per day) - Reported 1 [facility] Start: 07-15-2023 Alcohol intake Current drinker of alcohol (finding) [facility] Start: 06-24-2023 Alcohol Comment caffeine: 3-4 cups per day [facility] Start: 1975 Sex Assigned At Female [facility] Start: 07-14-2023 Gender identity Identifies as female gender (finding) [facility] Start: 07-14-2023 Sexual orientation Heterosexual (finding) [facility] Functional Status Date Assessment Result Facility 04-25-2023 Functional Status N/A [facility] History of Present illness Narrative 07-15-2023 Thelma [...] nursing note reviewed. Exam conducted with a patient biller present. Vitals: Estimated body mass index is [...] Appointments Appointment Date:05/16/2022 03:00:00 PM Scheduled Provider: [facility] Appointment Type:MA Screen (FT) Future Scheduled TestsMA Mamm Screen w/CAD if perf and 3D Jeromy 05/16/22 [facility] Evaluation + Plan note Radiology Note Date & Type Note Facility Evaluation + Plan note Future Appointments Appointment Date:05/23/2022 02:00:00 PM Scheduled Provider: [facility] Appointment Type:US Breast (FT) Future Scheduled TestsUS Breast Unilateral Lt Complete 05/23/22 [facility] Evaluation + Plan note Note Date & Type Note Facility Evaluation + Plan note Future Appointments Appointment Date:04/25/2023 10:00:00 AM Scheduled Provider:Guillermo Mueller MD Location:[facility] Appointment Type:[address] Evaluation note Note Date & Type Note Facility Evaluation note Diagnosis Mass of left breast, unspecified quadrant documented in this encounter [facility] Evaluation note Note Date & Type Note Facility Evaluation note No assessment information availa [facility] Work Phone: Hospital course Narrative Note Date & Type Note Facility Hospital course Narrative No data available for this section [facility] Hospital Discharge instructions Note Date & Type Note Facility Hospital Discharge instructions No data available for this section [facility] Progress note Note Date & Type Note Facility Progress note No data available for this section [facility] Summary Purpose Family History No Family [...] section and content) DATE CREATED AUTHOR 12/05/2018 [facility] DATE CREATED AUTHOR AUTHOR'S ORGANIZ ATION 12/30/2019 [facility] DATE CREATED AUTHOR AUTHOR'S ORGANIZ ATION 01/02/2020 [facility] DATE CREATED AUTHOR AUTHOR'S ORGANIZ ATION 07/19/2021 [facility] DATE CREATED AUTHOR AUTHOR'S ORGANIZ ATION 05/03/2023 [facility] DATE CREATED AUTHOR AUTHOR'S ORGANIZ ATION 07/16/2023 [facility] EPIC DATE CREATED AUTHOR AUTHOR'S ORGANIZ ATION 08/07/2023 [facility] Patient Care team informatio n (unrecognized section and content) Court Assistant Relationship Specialty Start Date End Date Kayla Pinzond [address] [place] [address] PCP - General 07/15/23 Team [...] BE BASED ON THE PRIMARY CLINICAL RECORDS. [employer] provides no warranty or guarantee of the accuracy or completeness of information in this document.
== END 2024-08-10 17:39 | disposition home or self-care (01) ==
LOC: MAMMO 17:38
PROVIDERS: Visit Provider Obstetrics & Gynecology
DX: Z12.31 Encounter for screening mammogram for malignant neoplasm of breast (principal); Z80.3 Family history of malignant neoplasm of breast
CPT/HCPCS: 77063; 77067